=== PATIENT | female | born 1930 | race Caucasian/White ===

== ENCOUNTER 2016-12-13 10:21 | Outpatient (CLI) | payer MEDICARE | END 2016-12-13 10:22 | disposition home or self-care (01) | DX: Z12.31 Encounter for screening mammogram for malignant neoplasm of breast (principal); Z85.3 Personal history of malignant neoplasm of breast ==

== ENCOUNTER 2017-02-18 07:13 | Outpatient (CLI) | payer MEDICARE | END 2017-02-18 07:14 | disposition home or self-care (01) | DX: E78.2 Mixed hyperlipidemia (principal); E03.9 Hypothyroidism, unspecified; Z79.899 Other long term (current) drug therapy ==

== ENCOUNTER 2017-09-01 14:42 | Outpatient (CLI) | payer MEDICARE | END 2017-09-01 14:43 | disposition EMS.NT | LOC: EMS 14:42 | PROVIDERS: ATTEND Surgery | DX: R00.0 Tachycardia, unspecified (principal) ==

== ENCOUNTER 2017-12-16 10:05 | Outpatient (CLI) | payer MEDICARE ==
--- NOTE | 2017-12-17 11:49 | Mammography Report ---
DIGITAL BILATERAL SCREENING MAMMOGRAM: 12/16/2017 COMPARISON: Mammogram 12/13/2016. INDICATION: Screening. TECHNIQUE: Routine CC and MLO projections were obtained of the breasts. FINDINGS: The breast parenchyma is heterogeneously dense which may limit the sensitivity of mammography. Postoperative changes of the left breast are a stable finding. No dominant mass, architectural distortion or more concerning cluster of microcalcifications are seen in other regards IMPRESSION: 1. BIRADS CATEGORY 2-BENIGN FINDINGS. 2. RECOMMEND ANNUAL SCREENING MAMMOGRAM. STANDARD QUALIFYING STATEMENTS: 1. This examination was reviewed with the aid of Computer-Aided Detection (CAD) . 2. A negative or benign imaging report should not delay biopsy if clinically suspicious findings are present. Consider surgical consultation if warranted. More than 5 % of cancers are not identified by imaging. 3. Dense breasts may obscure an underlying neoplasm. TD: 12/17/2017 11:48 [email or web address]
== END 2017-12-16 10:06 | disposition home or self-care (01) ==
LOC: DI.S 10:05
PROVIDERS: ATTEND Internal Medicine
DX: Z12.31 Encounter for screening mammogram for malignant neoplasm of breast (principal)
CPT/HCPCS: 77067

== ENCOUNTER 2018-03-03 07:28 | Outpatient (CLI) | payer MEDICARE ==
[2018-03-03 10:32] LABS: BASOPHILS # (AUTO) 0.1 10^3/uL (0.0-0.1); BASOPHILS % (AUTO) 1.5 %; EOSINOPHILS # (AUTO) 0.2 10^3/uL (0.0-0.7); EOSINOPHILS % (AUTO) 2.5 %; LYMPHOCYTES # (AUTO) 1.6 10^3/uL (1.5-3.5); MEAN CORPUSCULAR HEMOGLOBIN 31.6 pg (27.0-31.0); MEAN CORPUSCULAR HGB CONC 33.3 g/dL (32.0-36.0); MEAN CORPUSCULAR VOLUME 94.9 fL (81.0-99.0); MEAN PLATELET VOLUME 8.6 fL (7.9-10.8); MONOCYTES # (AUTO) 0.8 10^3/uL (0.0-1.0); MONOCYTES % (AUTO) 12.2 %; NEUTROPHILS # (AUTO) 4.2 10^3/uL (1.5-6.6); NEUTROPHILS % (AUTO) 60.8 %; PLT - PLATELET COUNT 274 10^3/uL (130-450); RED BLOOD COUNT 4.11 10^6/uL (4.20-5.40); RED CELL DISTRIBUTION WIDTH 14.5 % (12.0-15.0); WHITE BLOOD COUNT 6.9 x10^3/uL (4.8-10.8)
[2018-03-03 10:55] LABS: ALBUMIN 3.3 g/dL (3.2-5.5); ALBUMIN/GLOBULIN RATIO 1.1 (1.0-2.2); ALKALINE PHOSPHATASE 62 IU/L (42-121); ALT ALANINE AMINOTRANSFERASE 21 IU/L (10-60); AST ASPARTATE AMINOTRANSFERASE 20 IU/L (10-42); BILIRUBIN,TOTAL 0.9 mg/dL (0.2-1.0); BUN - BLOOD UREA NITROGEN 11 mg/dL (6-20); CALCIUM 8.5 mg/dL (8.5-10.3); CARBON DIOXIDE - CO2 27 mmol/L (21-32); CHLORIDE 102 mmol/L (101-111); CHOLESTEROL 130 mg/dL; CREATININE 0.8 mg/dL (0.4-1.0); GFR - MDRD 68 (>89); GLUCOSE 90 mg/dL (70-100); HDL CHOLESTEROL 43 mg/dL; LDL CHOLESTEROL,CALCULATED 77 mg/dL; LDL/HDL RATIO 1.8 (<4.4); SODIUM 135 mmol/L (135-145); TOTAL PROTEIN 6.4 g/dL (6.7-8.2); VLDL CHOLESTEROL 10 mg/dL
== END 2018-03-03 07:29 | disposition home or self-care (01) ==
LOC: LAB.F 07:28
PROVIDERS: ATTEND Internal Medicine
DX: E03.9 Hypothyroidism, unspecified (principal); C50.919 Malignant neoplasm of unspecified site of unspecified female breast; E78.5 Hyperlipidemia, unspecified; Z79.899 Other long term (current) drug therapy
CPT/HCPCS: 36415; 80053; 80061; 83721; 84443; 85025

== ENCOUNTER 2018-03-14 09:41 | Outpatient (CLI) | payer MEDICARE ==
--- NOTE | 2018-03-14 16:24 | Ultrasound Report ---
EXAM: LEFT LOWER EXTREMITY VENOUS ULTRASOUND EXAM DATE: 03/14/2018 11:43 AM. CLINICAL HISTORY: LEFT LEG. COMPARISON: None. TECHNIQUE: Real-time sonographic vascular imaging was performed by the acetylene burner through the lower extremity utilizing both color-flow and Doppler spectral analysis. Multiple roofing sales representative static matilde ges were saved for review. FINDINGS: Common Femoral Vein (CFV): Normal. CFV-GSV Junction: Normal. Profunda Femoral Vein (PFV): Normal. Femoral Vein (FV) Prox: Normal. Femoral Vein (FV) Mid: Normal. Femoral Vein (FV) Dist: Normal. Popliteal Vein: Normal. Posterior Tibial Veins: Normal. Peroneal Veins: Normal. Contralateral Side CFV: Normal. Other: Incidental note is made of Maldonado's cyst measuring up to 3.4 x 0.9 x 2.8 cm. IMPRESSION: No evidence for deep venous thrombosis. Maldonado's cyst. [facility] Referring Provider Line: [phone] SITE ID: [id number]
== END 2018-03-14 09:42 | disposition home or self-care (01) ==
LOC: DI 09:41
PROVIDERS: ATTEND Internal Medicine
DX: I80.9 Phlebitis and thrombophlebitis of unspecified site (principal)

== ENCOUNTER 2018-04-15 10:12 | Outpatient (CLI) | payer OTHER, MEDICARE | END 2018-04-15 10:13 | disposition critical access hospital (66) | LOC: EMS 10:12 | PROVIDERS: ATTEND Surgery | DX: R41.82 Altered mental status, unspecified (principal); R50.9 Fever, unspecified; R00.0 Tachycardia, unspecified; V48.5XXA Car driver injured in noncollision transport accident in traffic accident, initial encounter; Y92.410 Unspecified street and highway as the place of occurrence of the external cause | CPT/HCPCS: A0425; A0429 ==

== ENCOUNTER 2018-04-15 10:50 | Inpatient (IN) | payer OTHER, MEDICARE ==
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
[2018-04-15] MEDS ORDERED: diltiaZEM INJ 5 MG/ML VIAL IVP STA ×2 (11:37→13:12)
--- NOTE | 2018-04-15 13:03 | XRAY Report ---
Procedure Date: 04/15/2018 Accession Number: [id number] / [id number] Procedure: XR - Chest 2 View X-Ray CPT Code: 55910 FULL RESULT: EXAM: CHEST RADIOGRAPHY EXAM DATE: 04/15/2018 12:43 PM. CLINICAL HISTORY: Diminished breath sounds right base. COMPARISON: CHEST 2 VIEW PA/LAT 06/14/2014. TECHNIQUE: 2 views. FINDINGS: Lungs/Pleura: No focal consolidation. Low lung volumes. No pneumothorax or pleural effusion. No pulmonary vascular congestion. Mediastinum: The cardiac silhouette is within normal limits. Cardiac valve prosthesis in place. Tortuous, atherosclerotic thoracic aorta. Other: Exaggerated thoracic kyphosis as before. Sternotomy wires again demonstrated. IMPRESSION: No radiographically apparent acute abnormality in the chest. No significant change from prior. [facility]
[2018-04-15 13:20] LABS: BILIRUBIN,URINE NEGATIVE (NEGATIVE); CLARITY,URINE CLEAR (CLEAR); GLUCOSE, URINE (UA) NEGATIVE (NEGATIVE); KETONES,URINE (UA) TRACE mg/dL (NEGATIVE); LEUKOCYTE ESTERASE, URINE NEGATIVE (NEGATIVE); NITRITE,URINE NEGATIVE (NEGATIVE); OCCULT BLOOD,URINE LARGE (NEGATIVE); PROTEIN,URINE 100 mg/dL (NEGATIVE); UROBILINOGEN,URINE 0.2 (NORMAL) E.U./dL (NORMAL)
[2018-04-15 13:29] LABS: BASOPHILS % (AUTO) 0.1 %; HGB - HEMOGLOBIN 13.1 g/dL (12.0-16.0); LYMPHOCYTES % (AUTO) 1.9 %; MEAN CORPUSCULAR HEMOGLOBIN 32.1 pg (27.0-31.0); MEAN CORPUSCULAR HGB CONC 32.9 g/dL (32.0-36.0); MEAN CORPUSCULAR VOLUME 97.5 fL (81.0-99.0); MEAN PLATELET VOLUME 8.7 fL (7.9-10.8); MONOCYTES % (AUTO) 2.8 %; NEUTROPHILS % (AUTO) 95.2 %; PLT - PLATELET COUNT 156 10^3/uL (130-450); RED BLOOD COUNT 4.08 10^6/uL (4.20-5.40); RED CELL DISTRIBUTION WIDTH 14.7 % (12.0-15.0); WHITE BLOOD COUNT 12.1 x10^3/uL (4.8-10.8)
[2018-04-15 13:30] LABS: ALBUMIN 2.9 g/dL (3.2-5.5); ALBUMIN/GLOBULIN RATIO 0.8 (1.0-2.2); BILIRUBIN,TOTAL 0.9 mg/dL (0.2-1.0); CALCIUM 8.1 mg/dL (8.5-10.3); CREATININE 1.1 mg/dL (0.4-1.0); TOTAL PROTEIN 6.7 g/dL (6.7-8.2)
[2018-04-15 13:42] LABS: BACTERIA,URINE Few /HPF (None Seen); MUCUS,URINE Few Strands; RBC,URINE 0-5 /HPF (0-5); SQUAMOUS EPITHELIAL CELL,UR MOD Squamous (<= Few)
[2018-04-15 13:49] LABS: ABNORMAL LYMPHS % (MANUAL) 0 %
[2018-04-15 13:50] LABS: BAND NEUTROPHILS % (MANUAL) 26 %; DIFFERENTIAL COMMENT MANUAL DIFFERENTIAL; LYMPHOCYTES # (MANUAL) 0.1 10^3/uL (1.5-3.5); LYMPHOCYTES % (MANUAL) 1 %; MONOCYTES # (MANUAL) 0.1 10^3/uL (0.0-1.0); NEUTROPHILS # (MANUAL) 11.9 10^3/uL (1.5-6.6); NEUTROPHILS % (MANUAL) 72 %; PLATELET ESTIMATE, MANUAL NORMAL (130-450,000) (NORMAL); PLATELET MORPHOLOGY NORMAL APPEARANCE (NORMAL); RBC MORPHOLOGY (MULTIPLE) NORMAL APPEARANCE (NORMAL)
[2018-04-15] MEDS ORDERED: IOPAMIDOL-300 100 ML VIAL ONE (14:39)
[2018-04-15] MEDS ORDERED: IOPAMIDOL-300 100 ML VIAL IVP ONE (16:07)
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
--- NOTE | 2018-04-15 16:24 | CT Report ---
Procedure Date: 04/15/2018 Accession Number: [id number] / [id number] Procedure: CT - Chest Angio (PE) CPT Code: FULL RESULT: EXAM: CT ANGIOGRAM CHEST EXAM DATE: 04/15/2018 04:05 PM. CLINICAL HISTORY: Tachycardia. COMPARISON: None. TECHNIQUE: Routine helical imaging was performed through the chest in the pulmonary arterial phase. IV Contrast: ISOVUE 300 80mL. Reconstructions: Coronal 3-D MIP reconstructions.Sagittal and coronal. In accordance with CT protocol optimization, one or more of the following dose reduction techniques were utilized for this exam: automated exposure control, adjustment of mA and/or KV based on patient size, or use of iterative reconstructive technique. FINDINGS: Pulmonary Arteries: Diagnostic quality: Adequate through the mid segmental arteries. Respiratory motion artifact obscures portions of distal vessels. No evidence for acute or chronic pulmonary emboli. Lungs/Pleura: There is reticular opacity with the lower lobes. There's bibasilar dependent airspace disease which probably represents atelectasis. No evidence of lobar infiltrate or pneumothorax. Mediastinum: There is cardiac. Patient has undergone aortic valve replacement. There are no enlarged axillary, supraclavicular, mediastinal, or hilar lymph nodes. Thoracic Aorta: There is no evidence of aortic dissection or aneurysm. Upper Abdomen: Unremarkable. Other: None. IMPRESSION: 1. No evidence of acute pulmonary embolism through the mid segmental branch level. 2. No evidence of lobar infiltrate or pneumothorax. 3. There is cardiomegaly. 4. No evidence of aortic dissection. [facility]
[2018-04-15] MEDS ORDERED: ONDANSETRON 4 MG/2 ML VIAL IVP PRN (16:28)
[2018-04-15] MEDS ORDERED: PROMETHAZINE 25 MG/1 ML VIAL IM PRN (16:28)
[2018-04-15] MEDS ORDERED: MORPHINE 2 MG/ML SYRINGE IVP PRN (16:28)
[2018-04-15] MEDS ORDERED: ZOLPIDEM 5 MG TABLET PO PRN (16:28)
[2018-04-15] MEDS ORDERED: oxyCODONE 5 MG TABLET PO PRN ×2 (16:28)
[2018-04-15] MEDS ORDERED: SODIUM CHLORIDE FLUSH 0.9% 10 ML SYRINGE IVP PRN (16:28)
[2018-04-15] MEDS ORDERED: PROCHLORPERAZINE 10 MG/2 ML VIAL IVP PRN (16:28)
[2018-04-15 17:10] LABS: HB2 TOTAL 13.6 g/dL; HEMOGLOBIN A1C 0.65 g/dL; HEMOGLOBIN A1C % 6.5 % (4.6-6.2)
[2018-04-15] MEDS ORDERED: SODIUM CHLORIDE 0.9% 1,000 ML IV ONE (17:14)
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
[2018-04-15] MEDS: SODIUM CHLORIDE FLUSH 0.9% 10 ML SYRINGE IVP SCH (18:11)
[2018-04-15] MEDS ORDERED: METOPROLOL 5 MG/5 ML VIAL IVP STA (18:51)
[2018-04-15] MEDS ORDERED: METOPROLOL SUCCINATE 50 MG TABLET PO SCH (18:52)
[2018-04-15] MEDS: SODIUM CHLORIDE 0.9% 1,000 ML IV SCH (19:18)
[2018-04-15] MEDS: VANCOMYCIN INJ 1 GM in SODIUM CHLORIDE 0.9% 250 ML IV SCH (19:18)
[2018-04-15] MEDS ORDERED: PIPERACILLIN/TAZOBACTAM 3.375 GM in SODIUM CHLORIDE 0.9% MINIBAG 100 ML IV SCH ×2 (20:00→21:00)
[2018-04-15] MEDS ORDERED: SODIUM CHLORIDE 0.9% 1,000 ML IV SCH (20:50)
[2018-04-15] MEDS: ATORVASTATIN 40 MG TABLET PO SCH (21:25)
[2018-04-15] MEDS ORDERED: SODIUM CHLORIDE 0.9% 500 ML IV SCH (22:45)
[2018-04-15] MEDS ORDERED: METOPROLOL 5 MG/5 ML VIAL IVP PRN (22:45)
[2018-04-15] MEDS: ACETAMINOPHEN 325 MG TABLET PO PRN (23:57)
[2018-04-16] MEDS: SODIUM CHLORIDE FLUSH 0.9% 10 ML SYRINGE IVP SCH ×6 (02:31→20:00)
[2018-04-16 03:22] LABS: BASOPHILS % (AUTO) 0.3 %; EOSINOPHILS % (AUTO) 0.1 %; HGB - HEMOGLOBIN 11.4 g/dL (12.0-16.0); LYMPHOCYTES # (AUTO) 0.6 10^3/uL (1.5-3.5); LYMPHOCYTES % (AUTO) 4.6 %; MEAN CORPUSCULAR HEMOGLOBIN 32.2 pg (27.0-31.0); MEAN CORPUSCULAR HGB CONC 33.4 g/dL (32.0-36.0); MEAN CORPUSCULAR VOLUME 96.3 fL (81.0-99.0); MEAN PLATELET VOLUME 8.7 fL (7.9-10.8); MONOCYTES # (AUTO) 0.7 10^3/uL (0.0-1.0); MONOCYTES % (AUTO) 4.8 %; NEUTROPHILS # (AUTO) 12.4 10^3/uL (1.5-6.6); NEUTROPHILS % (AUTO) 90.2 %; PLT - PLATELET COUNT 125 10^3/uL (130-450); RED BLOOD COUNT 3.56 10^6/uL (4.20-5.40); WHITE BLOOD COUNT 13.8 x10^3/uL (4.8-10.8)
[2018-04-16 03:35] LABS: ALBUMIN 2.1 g/dL (3.2-5.5); ALBUMIN/GLOBULIN RATIO 0.7 (1.0-2.2); ALKALINE PHOSPHATASE 61 IU/L (42-121); ALT ALANINE AMINOTRANSFERASE 51 IU/L (10-60); AST ASPARTATE AMINOTRANSFERASE 94 IU/L (10-42); BUN - BLOOD UREA NITROGEN 24 mg/dL (6-20); CALCIUM 6.8 mg/dL (8.5-10.3); CARBON DIOXIDE - CO2 17 mmol/L (21-32); CHLORIDE 105 mmol/L (101-111); CREATININE 1.1 mg/dL (0.4-1.0); GFR - MDRD 47 (>89); GLUCOSE 138 mg/dL (70-100); MAGNESIUM 1.7 mg/dL (1.7-2.8); PHOSPHORUS 2.8 mg/dL (2.5-4.6); SODIUM 132 mmol/L (135-145); TOTAL PROTEIN 5.2 g/dL (6.7-8.2)
[2018-04-16 03:53] LABS: VBG PH 7.427 (7.31-7.41)
[2018-04-16] MEDS ORDERED: SODIUM CHLORIDE 0.9% 1,000 ML IV ONE ×4 (05:30→13:17)
[2018-04-16] MEDS: SODIUM CHLORIDE 0.9% 1,000 ML IV SCH ×2 (05:59→14:35)
[2018-04-16] MEDS ORDERED: FAMOTIDINE 20 MG TABLET PO SCH (09:00)
[2018-04-16] MEDS ORDERED: METOPROLOL SUCCINATE 50 MG TABLET PO SCH (09:00)
[2018-04-16] MEDS: LEVOTHYROXINE 25 MCG TABLET PO SCH (09:38)
[2018-04-16] MEDS: POTASSIUM CHLORIDE 10 MEQ CAPSULE PO SCH (09:38)
[2018-04-16] MEDS: ASPIRIN EC 81 MG TABLET PO SCH (09:38)
[2018-04-16] MEDS: PANTOPRAZOLE 40 MG VIAL IVP SCH (09:44)
[2018-04-16] MEDS: PIPERACILLIN/TAZOBACTAM 3.375 GM in SODIUM CHLORIDE 0.9% MINIBAG 100 ML IV SCH ×2 (09:47→15:43)
[2018-04-16] MEDS: POLYETHYLENE GLYCOL 3350 17 GM PACKET PO SCH (10:01)
[2018-04-16] MEDS: ENOXAPARIN 40 MG/0.4 ML SYRINGE SUBQ SCH (10:07)
--- NOTE | 2018-04-16 12:50 | XRAY Report ---
Procedure Date: 04/16/2018 Accession Number: [id number] / [id number] Procedure: XR - Chest for Line Placement CPT Code: FULL RESULT: EXAM: Chest for Line Placement DATE: 04/16/2018 9:58 AM CLINICAL HISTORY: new PICC COMPARISON: Limited comparison is made to the CT of the chest dated 04/15/2018. TECHNIQUE: Single view of the chest. FINDINGS: Lines: Interval placement of a right-sided peripherally inserted central catheter with the tip located in the region of the superior cavoatrial junction. Lungs/Pleura: No focal opacities evident. No pneumothorax or pleural effusion. Mediastinum: Within exam limitations, cardiomediastinal contour is normal. Stable postoperative changes. Other: None. IMPRESSION: Appropriately positioned right PICC. No pneumothorax. RADIA
[2018-04-16] MEDS ORDERED: AMIODARONE 150 MG/100 ML 100 ML IV ONE (13:40)
[2018-04-16] MEDS ORDERED: AMIODARONE 360 MG/200 ML 200 ML IV ONE (13:50)
--- NOTE | 2018-04-16 16:08 | PROVIDER PROGRESS NOTE ---
Assessment/Plan - Problem List (1) Septic shock Assessment/Plan: Patient presented with fever, tachycardia, leukocytosis and bandemia. She had an elevated lactic acid of 4.0. The patient did have a mild elevation in her creatinine up to 1.1 from 0.7 and mild elevation in her troponin up to 0.43. The patient appeared to have severe sepsis with endorgan damage. The patient also had metabolic encephalopathy as she was confused. The patient underwent extensive workup for source of infection and was found to have a left lower extremity cellulitis as the likely source of her sepsis. Overnight patient had positive blood cultures with group G strep likely source being the left leg cellulitis This am patient was hypotensive despite several IV fluid boluses patient remained hypotensive with SBP in 70 Worsening leukocytosis this am, fever of 38.8 overnight Transferred to ICU and placed on levophed Lactic acid initially increased to 4.2 then improved to normal Plan: Broad-spectrum IV antibiotics with IV vancomycin and Zosyn day 2 Levophed drip titrate for MAP >65 COntinue IV fluid boluses and maintenance fluid (2) Bacteremia Conclusion/Plan: Group G Strep Likely source is left lower extremity cellulitis Echo negative for endocarditis Plan: Repeat blood cultures COntinue IV vanco and zosyn day 2 Await susceptibilities (3) Cellulitis of left leg Conclusion/Plan: Patient presented with left lower extremity pain on exam she appears to have a swollen, tender, warm and red left lower extremity that appears to be infected. The patient likely has cellulitis as the source of her severe sepsis. Given that the patient does have septic shock we will use broad-spectrum IV antibiotics. Patient has bacteremia with group g strep and likely source is cellulitis Plan: Continue IV vancomycin and Zosyn day 2 Repeat blood cx De-escalate abx depending on susceptibilities (4) Atrial fibrillation with RVR Conclusion/Plan: The patient presented with tachycardia which initially appeared to be sinus tachycardia with a heart rate of 142. On arrival to the medical poe the patient continued to be tachycardic with heart rate up to the 150s. The patient was given 2 doses of diltiazem in the emergency department which did seem to slow her heart rate down. The patient's EKG appears to show a right bundle branch block but it is difficult to assess if the patient has sinus rhythm or atrial fibrillation on her monitor it does appear she has atrial fibrillation. The patient does not herself know about a history of atrial fibrillation but looking back at a EMS note from 08/2017 the patient did have tachycardia at that time with a heart rate in the 180s but declined to come to the hospital. It appears the patient likely does have A. fib with RVR and will be treated as such. Patient continues to have HR of 150s this am and secondary to septic shock metoprolol stopped this am Echocardiogram shows reduced EF of 40% Telemetry monitoring shows irregular wide complex tachycardia Plan: Start amiodarone drip Monitor HR Restart metoprolol once tolerable Hold off anticoagulation given patients age (5) Acute kidney injury Conclusion/Plan: The patient's baseline creatinine is 0.7 and on presentation it is elevated to 1.1 with an elevated BUN of 23. The patient does appear to be dry on examination and does have severe sepsis with likely acute kidney injury due to prerenal azotemia. Continue IVFs We will avoid nephrotoxic agents We will monitor patient's creatinine Continues to be elevated at 1.1 and decreased urine output (6) Metabolic encephalopathy Conclusion/Plan: On presentation to the emergency department the patient was quite confused and although she does appear to have some underlying dementia it is difficult to know how much of her confusion is acute but given that she has severe sepsis it is likely that there is some component of metabolic encephalopathy. We will treat the patient's underlying infection and give her IV fluids and hope that she does have improvement in her mentation. Patient lethargic and not at baseline according to patients son (7) Hyperglycemia Conclusion/Plan: Patient is hyperglycemic on presentation with a glucose of 155 which is likely a stress response secondary to her ongoing infection. The patient's hemoglobin A1c was 6.5 which is right on the borderline. We will not start any insulin at this time however the patient's blood glucose does become elevated on her daily labs will consider starting her on a sliding scale insulin. The patient does not have any history of diabetes. BG mildly elevated this am (8) Elevated troponin Conclusion/Plan: The patient has a mildly elevated troponin on presentation of 0.43 her repeat troponin was 0.38 than 0.43. Likely this elevation in her troponin is due to end organ damage from severe sepsis. Also there may be some contribution from her having tachycardia for what may have been a prolonged period of time prior to arriving to the emergency department. Patient does not have any ST elevations on her EKG and it does not appear that she has acute ischemia. Trop stable Plan: Telemetry monitoring Echocardiogram Treat A. fib with RVR to get rate control (9) Hypertension Conclusion/Plan: Septic shock Hold antihypertensive meds Qualifiers: Hypertension type: essential hypertension Qualified Code(s): I10 - Essential (primary) hypertension (10) Hypothyroidism Conclusion/Plan: Patient is a history of hypothyroidism and takes Synthroid at home. We will continue her on her home dose of Synthroid. TSH is normal Qualifiers: Hypothyroidism type: unspecified Qualified Code(s): E03.9 - Hypothyroidism , unspecified (11) Hyperlipidemia Conclusion/Plan: Patient has a history of hyperlipidemia and takes atorvastatin at home. We will continue the patient's home dose of atorvastatin. Qualifiers: Hyperlipidemia type: unspecified Qualified Code(s): E78.5 - Hyperlipidemia , unspecified - Current Meds Current Meds: Current Medications Generic Name Dose Route Start Last Admin Trade Name Freq PRN Reason Stop Dose Admin Acetaminophen 650 mg 04/15/18 16:28 04/15/18 23:57 Tylenol PO 650 mg Q4HR PRN Administration Pain 1 to 4 Aspirin 81 mg 04/16/18 09:00 04/16/18 09:38 Ecotrin PO 81 mg DAILY REKHA Administration Atorvastatin Calcium 40 mg 04/15/18 21:00 04/15/18 21:25 Lipitor PO 40 mg QPM REKHA Administration Enoxaparin Sodium 40 mg 04/16/18 09:00 04/16/18 10:07 Lovenox SUBQ 40 mg DAILY REKHA Administration Vancomycin HCl 1 gm/ Sodium 250 mls @ 130 mls/hr 04/15/18 18:00 04/15/18 21: 35 Chloride IV Infused Q24H REKHA Infusion Piperacillin Sod/Tazobactam 100 mls @ 200 mls/hr 04/16/18 08:00 04/16/18 15: 43 Sod 3.375 gm/ Sodium Chloride IV 200 mls/hr Q8H REKHA Administration Norepinephrine Bitartrate 8 mg 250 mls @ 15 mls/hr 04/16/18 08:00 04/16/18 12 :00 / Dextrose IV 0 mcg/min .[id number] REKHA 0 mls/hr Protocol Titration 8 MCG/MIN Sodium Chloride 1,000 mls @ 120 mls/hr 04/16/18 14:00 04/16/18 15:43 Normal Saline 0.9% IV 0 mls/hr .Q8H20M REKHA Infusion Amiodarone HCl/Dextrose 200 mls @ 33.333 mls/hr 04/16/18 13:50 04/16/18 15:00 Nexterone 360 Mg/200 Ml IV 04/16/18 19:49 33.333 mls/hr ONCE ONE Infusion Levothyroxine Sodium 50 mcg 04/16/18 07:00 04/16/18 09:38 Synthroid PO 50 mcg QDAC REKHA Administration Pantoprazole Sodium 40 mg 04/16/18 08:00 04/16/18 09:44 Protonix IVP 40 mg QDAC REKHA Administration Polyethylene Glycol 17 gm 04/16/18 09:00 04/16/18 10:01 Miralax PO Not Given DAILY REKHA Potassium Chloride 10 meq 04/16/18 09:00 04/16/18 09:38 Micro-K PO 10 meq DAILY REKHA Administration Sodium Chloride 10 ml 04/15/18 17:00 04/16/18 10:02 Normal Saline Flush 0.9% IVP 10 ml 0100,0900,1700 REKHA Administration Sodium Chloride 10 ml 04/16/18 09:00 04/16/18 09:44 Normal Saline Flush 0.9% IVP 10 ml 0100,0900,1700 REKHA Administration - Lab Result Fish Bone Diagrams: 04/16/18 03:10 04/16/18 03:10 - EKG Results EKG Interpreted Independently: Yes - Diagnostic Imaging Results Diagnostic Imaging Results: Final report reviewed - Additional Planning Condition/Complexity: Critical My Orders: My Active Orders 04/16/18 07:46 Daily Weight [RC] 0600 IO [RC] Q1HR Initiate ICU Electrolyte Prot. [RC] .protocol Vital Signs [RC] Q1HR Sodium Chloride Flush 0.9% [Normal Saline Flush 0.9%] 10 ml IVP PRN PRN Code Status [OTHERS] Routine 04/16/18 08:00 Echo Transthoracic Complete [ECHO] Routine Pantoprazole [Protonix] 40 mg IVP QDAC 04/16/18 08:16 PICC Line Care [RC] Q4H 04/16/18 09:00 Sodium Chloride Flush 0.9% [Normal Saline Flush 0.9%] 10 ml IVP 0100,0900, 1700 07/12/18 13:50 Amiodarone 360 mg/200 ml [Nexterone 360 mg/200 ml] 200 ml IV ONCE 04/16/18 14:00 Sodium Chloride 0.9% [Normal Saline 0.9%] 1,000 ml IV 120 mls/hr 04/16/18 14:58 Blood Culture [CULTURE, BLOOD #2] [RM] Routine 04/16/18 15:35 Blood Culture [CULTURE, BLOOD #1] [] Routine 04/16/18 19:50 Amiodarone 360 mg/200 ml [Nexterone 360 mg/200 ml] 200 ml IV 0.5 mg/min 04/17/18 05:00 BNP - B-NATRIURETIC PEPTIDE [IAI] DAILYLAB 04/18/18 05:00 BNP - B-NATRIURETIC PEPTIDE [IAI] DAILYLAB 04/19/18 05:00 BNP - B-NATRIURETIC PEPTIDE [IAI] DAILYLAB 04/20/18 05:00 BNP - B-NATRIURETIC PEPTIDE [IAI] DAILYLAB Plan Discussed with:: Patient, Family Time Spent: Greater than 60 minutes Subjective - Subjective Patient Reports: Fever, Pain (Left lower extremity), Other (Patient lethargic but arousable, still confused. Denies any chest pain or shortness of breath.) Nursing Reports: Confused Objective Vital Signs: Vital Signs - 24 hr 04/15/18 04/15/18 04/15/18 17:00 17:31 17:59 Temperature 37.8 C H 37.2 C Heart Rate 130 H 121 H Heart Rate [ 129 H Apical] Heart Rate [ Brachial] Heart Rate [ Monitoring electrodes] Respiratory 24 18 20 Rate Blood Pressure 139/79 H 127/77 Blood Pressure [Left Brachial artery] Blood Pressure 145/71 H [Right Brachial artery] O2 Saturation 96 100 93 04/15/18 04/15/18 04/15/18 19:10 19:15 19:20 Temperature Heart Rate Heart Rate [ 147 H 141 H Apical] Heart Rate [ Brachial] Heart Rate [ Monitoring electrodes] Respiratory Rate Blood Pressure 145/77 H Blood Pressure [Left Brachial artery] Blood Pressure 145/77 H 115/60 [Right Brachial artery] O2 Saturation 04/15/18 04/15/18 04/15/18 19:25 19:30 20:15 Temperature Heart Rate Heart Rate [ 141 H 135 H 120 H Apical] Heart Rate [ Brachial] Heart Rate [ Monitoring electrodes] Respiratory Rate Blood Pressure Blood Pressure [Left Brachial artery] Blood Pressure 111/56 L 118/93 H 116/72 [Right Brachial artery] O2 Saturation 04/16/18 04/16/18 04/16/18 00:00 00:56 06:18 Temperature 38.8 C H 37.2 C 36.8 C Heart Rate Heart Rate [ Apical] Heart Rate [ 124 H 133 H Brachial] Heart Rate [ Monitoring electrodes] Respiratory 20 18 Rate Blood Pressure Blood Pressure [Left Brachial artery] Blood Pressure 113/57 L 97/54 L [Right Brachial artery] O2 Saturation 94 92 04/16/18 04/16/18 04/16/18 06:47 07:30 07:45 Temperature 36.6 C Heart Rate Heart Rate [ Apical] Heart Rate [ 141 H Brachial] Heart Rate [ 135 H 136 H Monitoring electrodes] Respiratory 17 23 27 H Rate Blood Pressure Blood Pressure [Left Brachial artery] Blood Pressure 93/67 108/75 79/69 L [Right Brachial artery] O2 Saturation 93 04/16/18 04/16/18 04/16/18 08:00 10:00 11:00 Temperature Heart Rate Heart Rate [ Apical] Heart Rate [ Brachial] Heart Rate [ 138 H 141 H 149 H Monitoring electrodes] Respiratory 17 23 22 Rate Blood Pressure Blood Pressure 132/91 H 139/99 H [Left Brachial artery] Blood Pressure 89/58 L [Right Brachial artery] O2 Saturation 04/16/18 04/16/18 04/16/18 12:00 13:00 14:00 Temperature Heart Rate Heart Rate [ Apical] Heart Rate [ Brachial] Heart Rate [ 136 H 145 H 128 H Monitoring electrodes] Respiratory 24 25 H 28 H Rate Blood Pressure Blood Pressure 133/93 H 116/71 104/70 [Left Brachial artery] Blood Pressure [Right Brachial artery] O2 Saturation 04/16/18 15:00 Temperature Heart Rate Heart Rate [ Apical] Heart Rate [ Brachial] Heart Rate [ 130 H Monitoring electrodes] Respiratory 33 H Rate Blood Pressure Blood Pressure 115/90 H [Left Brachial artery] Blood Pressure [Right Brachial artery] O2 Saturation Oxygen O2 Source Room air I&O (Last 24 Hrs): Intake and Output Totals x24h 04/14/18 04/15/18 04/16/18 23:59 23:59 23:59 Intake Total 2852.083 6392.604 Output Total 1636 Balance 2852.083 8688.604 General: Moderate distress (septic), Other (Lethargic) HEENT: Atraumatic, PERRLA, EOMI, Other (dry mucus membranes) Neck: Supple, No JVD, No thyromegaly, +2 carotid pulse wo bruit, No LAD Lymphatic: no adenopathy Neuro: Non Focal, CN 2-12 Grossly Intact, Other (lethargic) Cardiovascular: No murmurs, Other (Irregular, tachycardic) Respiratory: Chest non-tender, Breath sounds nml, Other (Tachypnic) Abdomen: Normal bowel sounds, Soft, No tenderness, No hepatospenomegaly Extremities: No clubbing, No cyanosis, Normal pulses, Other (Left lower extremity swollen, red, warm and tender. no improvement) Comments/Notes: LLE red, warm and tender with obvious cellulitis - Results Results: Laboratory Results WBC 13.8 x10^3/uL (4.8-10.8) H 04/16/18 03:10 RBC 3.56 10^6/uL (4.20-5.40) L 04/16/18 03:10 Hgb 11.4 g/dL (12.0-16.0) L 04/16/18 03:10 Hct 34.2 % (37.0-47.0) L 04/16/18 03:10 MCV 96.3 fL (81.0-99.0) 04/16/18 03:10 MCH 32.2 pg (27.0-31.0) H 04/16/18 03:10 MCHC 33.4 g/dL (32.0-36.0) 04/16/18 03:10 RDW 15.0 % (12.0-15.0) 04/16/18 03:10 Plt Count 125 10^3/uL (130-450) L 04/16/18 03:10 MPV 8.7 fL (7.9-10.8) 04/16/18 03:10 Neut # (Auto) 12.4 10^3/uL (1.5-6.6) H 04/16/18 03:10 Lymph # (Auto) 0.6 10^3/uL (1.5-3.5) L 04/16/18 03:10 [place] # (Auto) 0.7 10^3/uL (0.0-1.0) 04/16/18 03:10 Eos # (Auto) 0.0 10^3/uL (0.0-0.7) 04/16/18 03:10 Baso # (Auto) 0.0 10^3/uL (0.0-0.1) 04/16/18 03:10 Absolute Nucleated RBC 0.00 x10^3/uL 04/16/18 03:10 Total Counted 100 04/15/18 13:09 Band Neuts % (Manual) 26 % (0-10) H 04/15/18 13:09 Abnorm Lymph % (Manual) 0 % 04/15/18 13:09 Nucleated RBC % 0.0 /100WBC 04/16/18 03:10 Neutrophils # (Manual) 11.9 10^3/uL (1.5-6.6) H 04/15/18 13:09 Lymphocytes # (Manual) 0.1 10^3/uL (1.5-3.5) L 04/15/18 13:09 Monocytes # (Manual) 0.1 10^3/uL (0.0-1.0) 04/15/18 13:09 Eosinophils # (Manual) 0.0 10^3/uL (0-0.7) 04/15/18 13:09 Basophils # (Manual) 0.0 10^3/uL (0-0.1) 04/15/18 13:09 Differential Comment MANUAL DIFFERENTIAL 04/15/18 13:09 Manual Slide Review Indicated 04/15/18 13:09 WBC Morphology 2+ VACUOLA (NORMAL) 04/15/18 13:09 Platelet Estimate NORMAL (130-450,000) (NORMAL) 04/15/18 13:09 Platelet Morphology NORMAL APPEARANCE (NORMAL) 04/15/18 13:09 RBC Morph Micro Appear NORMAL APPEARANCE (NORMAL) 04/15/18 13:09 VBG pH 7.427 (7.31-7.41) H 04/16/18 03:10 Ionized Calcium 0.97 mmol/L (1.15-1.33) L 04/16/18 03:10 Sodium 132 mmol/L (135-145) L 04/16/18 03:10 Potassium 3.5 mmol/L (3.5-5.0) 04/16/18 03:10 Chloride 105 mmol/L (101-111) 04/16/18 03:10 Carbon Dioxide 17 mmol/L (21-32) L 04/16/18 03:10 Anion Gap 10.0 (6-13) 04/16/18 03:10 BUN 24 mg/dL (6-20) H 04/16/18 03:10 Creatinine 1.1 mg/dL (0.4-1.0) H 04/16/18 03:10 Estimated GFR (MDRD) 47 (>89) L 04/16/18 03:10 Glucose 138 mg/dL (70-100) H 04/16/18 03:10 Glycated Hemoglobin 6.5 % (4.6-6.2) H 04/15/18 16:49 Estim Average Glucose 140 (70-100) H 04/15/18 16:49 Lactic Acid 1.7 mmol/L (0.5-2.2) 04/16/18 06:33 Calcium 6.8 mg/dL (8.5-10.3) L 04/16/18 03:10 Ionized Calcium YES 04/16/18 03:10 Phosphorus 2.8 mg/dL (2.5-4.6) 04/16/18 03:10 Magnesium 1.7 mg/dL (1.7-2.8) 04/16/18 03:10 Total Bilirubin 1.0 mg/dL (0.2-1.0) 04/16/18 03:10 AST 94 IU/L (10-42) H 04/16/18 03:10 ALT 51 IU/L (10-60) 04/16/18 03:10 Alkaline Phosphatase 61 IU/L (42-121) 04/16/18 03:10 Troponin I 0.46 ng/mL (<0.49) 04/16/18 03:10 B-Natriuretic Peptide 1164 pg/mL (5-100) H 04/16/18 03:10 Total Protein 5.2 g/dL (6.7-8.2) L 04/16/18 03:10 Albumin 2.1 g/dL (3.2-5.5) L 04/16/18 03:10 Globulin 3.1 g/dL (2.1-4.2) 04/16/18 03:10 Albumin/Globulin Ratio 0.7 (1.0-2.2) L 04/16/18 03:10 Lipase 22 U/L (22-51) 04/15/18 13:09 TSH 2.90 uIU/mL (0.34-5.60) 04/16/18 03:10 Urine Color YELLOW 04/15/18 13:04 Urine Clarity CLEAR (CLEAR) 04/15/18 13:04 Urine pH 6.0 PH (5.0-7.5) 04/15/18 13:04 Ur Specific [place] 1.025 (1.002-1.030) 04/15/18 13:04 Urine Protein 100 mg/dL (NEGATIVE) H 04/15/18 13:04 Urine Glucose (UA) NEGATIVE mg/dL (NEGATIVE) 04/15/18 13:04 Urine Ketones TRACE mg/dL (NEGATIVE) 04/15/18 13:04 Urine Occult Blood LARGE (NEGATIVE) H 04/15/18 13:04 Urine Nitrite NEGATIVE (NEGATIVE) 04/15/18 13:04 Urine Bilirubin NEGATIVE (NEGATIVE) 04/15/18 13:04 Urine Urobilinogen 0.2 (NORMAL) E.U./dL (NORMAL) 04/15/18 13:04 Ur Leukocyte Esterase NEGATIVE (NEGATIVE) 04/15/18 13:04 Urine RBC 0-5 /HPF (0-5) 04/15/18 13:04 Urine WBC 0-3 /HPF (0-5) 04/15/18 13:04 Ur Squamous Epith Cells MOD Squamous (<= Few) H 04/15/18 13:04 Urine Bacteria Few /HPF (None Seen) 04/15/18 13:04 Urine Mucus Few Strands 04/15/18 13:04 Ur Microscopic Review INDICATED 04/15/18 13:04 Urine Culture Comments NOT INDICATED 04/15/18 13:04 ABX Reporting Has patient been on IV antibiotics over the past 48 hours?: No Current Medications - Current Medications Current Medications: Active Medications Generic Name Dose Route Start Last Admin Trade Name Freq PRN Reason Stop Dose Admin Acetaminophen 650 mg 04/15/18 16:28 04/15/18 23:57 Tylenol PO 650 mg Q4HR PRN Administration Pain 1 to 4 Aspirin 81 mg 04/16/18 09:00 04/16/18 09:38 Ecotrin PO 81 mg DAILY REKHA Administration Atorvastatin Calcium 40 mg 04/15/18 21:00 04/15/18 21:25 Lipitor PO 40 mg QPM REKHA Administration Clotrimazole 1 applic 04/16/18 09:00 Lotrimin 1% Cream TOP DAILY REKHA Enoxaparin Sodium 40 mg 04/16/18 09:00 04/16/18 10:07 Lovenox SUBQ 40 mg DAILY REKHA Administration Vancomycin HCl 1 gm/ Sodium 250 mls @ 130 mls/hr 04/15/18 18:00 04/15/18 21: 35 Chloride IV Infused Q24H REKHA Infusion Piperacillin Sod/Tazobactam 100 mls @ 200 mls/hr 04/16/18 08:00 04/16/18 15: 43 Sod 3.375 gm/ Sodium Chloride IV 200 mls/hr Q8H REKHA Administration Norepinephrine Bitartrate 8 mg 250 mls @ 15 mls/hr 04/16/18 08:00 04/16/18 12 :00 / Dextrose IV 0 mcg/min .[id number] REKHA 0 mls/hr Protocol Titration 8 MCG/MIN Sodium Chloride 1,000 mls @ 120 mls/hr 04/16/18 14:00 04/16/18 15:43 Normal Saline 0.9% IV 0 mls/hr .Q8H20M REKHA Infusion Amiodarone HCl/Dextrose 200 mls @ 33.333 mls/hr 04/16/18 13:50 04/16/18 16:00 Nexterone 360 Mg/200 Ml IV 04/16/18 19:49 33.333 mls/hr ONCE ONE Infusion Amiodarone HCl/Dextrose 200 mls @ 16.667 mls/hr 04/16/18 19:50 Nexterone 360 Mg/200 Ml IV 04/17/18 19:49 .Q12H REKHA 0.5 MG/MIN Levothyroxine Sodium 50 mcg 04/16/18 07:00 04/16/18 09:38 Synthroid PO 50 mcg QDAC REKHA Administration Morphine Sulfate 2 mg 04/15/18 16:28 Morphine IVP Q2H PRN Pain 8 to 10 Ondansetron HCl 4 mg 04/15/18 16:28 Zofran Inj IVP Q6HR PRN Nausea / Vomiting Oxycodone HCl 5 mg 04/15/18 16:28 Roxicodone PO Q4HR PRN Pain 5 to 7 Oxycodone HCl 10 mg 04/15/18 16:28 Roxicodone PO Q4HR PRN Pain 8 to 10 Pantoprazole Sodium 40 mg 04/16/18 08:00 04/16/18 09:44 Protonix IVP 40 mg QDAC REKHA Administration Polyethylene Glycol 17 gm 04/16/18 09:00 04/16/18 10:01 Miralax PO Not Given DAILY REKHA Potassium Chloride 10 meq 04/16/18 09:00 04/16/18 09:38 Micro-K PO 10 meq DAILY REKHA Administration Prochlorperazine Edisylate 10 mg 04/15/18 16:28 Compazine Inj IVP Q6HR PRN Nausea / Vomiting Promethazine HCl 25 mg 04/15/18 16:28 Phenergan Inj IM Q6HR PRN Nausea / Vomiting Sodium Chloride 10 ml 04/15/18 17:00 04/16/18 10:02 Normal Saline Flush 0.9% IVP 10 ml 0100,0900,1700 REKHA Administration Sodium Chloride 10 ml 04/16/18 09:00 04/16/18 09:44 Normal Saline Flush 0.9% IVP 10 ml 0100,0900,1700 REKHA Administration Sodium Chloride 10 ml 04/16/18 07:46 Normal Saline Flush 0.9% IVP PRN PRN NEEDED PER PROVIDER ORDERS Zolpidem Tartrate 5 mg 04/15/18 16:28 Ambien PO QPM PRN Insomnia Aspirin [Aspirin EC] 81 mg PO DAILY 04/15/18 Atorvastatin Calcium 40 mg PO QPM 04/15/18 Clotrimazole [Clotrimazole AF] 1 applic TOP DAILY 04/15/18 Levothyroxine Sodium 50 mcg PO QDAC 04/15/18 Metoprolol Succinate 50 mg PO DAILY 04/15/18 Potassium Chloride 10 meq PO DAILY 04/15/18
[2018-04-16] MEDS: VANCOMYCIN INJ 1 GM in SODIUM CHLORIDE 0.9% 250 ML IV SCH (17:40)
[2018-04-16] MEDS: ACETAMINOPHEN 325 MG TABLET PO PRN (19:35)
[2018-04-16] MEDS: AMIODARONE 360 MG/200 ML 200 ML IV SCH (20:03)
[2018-04-16] MEDS: CLOTRIMAZOLE 1% CREAM 15 GM TUBE TOP SCH (20:07)
[2018-04-16] MEDS: ATORVASTATIN 40 MG TABLET PO SCH (21:17)
[2018-04-16] MEDS ORDERED: FUROSEMIDE 20 MG/2 ML VIAL IVP SCH (22:00)
[2018-04-17] MEDS: METOPROLOL 5 MG/5 ML VIAL IVP PRN ×2 (00:09→06:28)
[2018-04-17] MEDS: PIPERACILLIN/TAZOBACTAM 3.375 GM in SODIUM CHLORIDE 0.9% MINIBAG 100 ML IV SCH (00:10)
[2018-04-17] MEDS: SODIUM CHLORIDE 0.9% 1,000 ML IV SCH ×3 (01:48→19:00)
[2018-04-17] MEDS: SODIUM CHLORIDE FLUSH 0.9% 10 ML SYRINGE IVP SCH ×4 (03:05→17:05)
[2018-04-17] MEDS: SODIUM CHLORIDE FLUSH 0.9% 10 ML SYRINGE IVP PRN ×2 (03:05→06:28)
[2018-04-17 03:28] LABS: BASOPHILS % (AUTO) 0.4 %; EOSINOPHILS % (AUTO) 2.9 %; HGB - HEMOGLOBIN 11.5 g/dL (12.0-16.0); LYMPHOCYTES % (AUTO) 4.2 %; MEAN CORPUSCULAR HEMOGLOBIN 32.4 pg (27.0-31.0); MEAN CORPUSCULAR HGB CONC 34.5 g/dL (32.0-36.0); MEAN PLATELET VOLUME 9.2 fL (7.9-10.8); MONOCYTES % (AUTO) 5.3 %; NEUTROPHILS % (AUTO) 87.2 %; PLT - PLATELET COUNT 117 10^3/uL (130-450); RED BLOOD COUNT 3.55 10^6/uL (4.20-5.40); RED CELL DISTRIBUTION WIDTH 15.2 % (12.0-15.0); WHITE BLOOD COUNT 14.5 x10^3/uL (4.8-10.8)
[2018-04-17 03:30] LABS: ABNORMAL LYMPHS % (MANUAL) 0 %
[2018-04-17 03:50] LABS: BAND NEUTROPHILS % (MANUAL) 5 %; DIFFERENTIAL COMMENT MANUAL DIFFERENTIAL; EOSINOPHILS # (MANUAL) 0.1 10^3/uL (0-0.7); LYMPHOCYTES % (MANUAL) 7 %; MONOCYTES # (MANUAL) 0.7 10^3/uL (0.0-1.0); NEUTROPHILS # (MANUAL) 12.6 10^3/uL (1.5-6.6); NEUTROPHILS % (MANUAL) 82 %; PLATELET ESTIMATE, MANUAL DECREASED (<130,000) (NORMAL); RBC MORPHOLOGY (MULTIPLE) NORMAL APPEARANCE (NORMAL)
[2018-04-17 04:00] LABS: ALBUMIN 2.1 g/dL (3.2-5.5); ALBUMIN/GLOBULIN RATIO 0.8 (1.0-2.2); ALKALINE PHOSPHATASE 57 IU/L (42-121); ALT ALANINE AMINOTRANSFERASE 53 IU/L (10-60); AST ASPARTATE AMINOTRANSFERASE 78 IU/L (10-42); BILIRUBIN,TOTAL 0.8 mg/dL (0.2-1.0); BUN - BLOOD UREA NITROGEN 26 mg/dL (6-20); CARBON DIOXIDE - CO2 15 mmol/L (21-32); CHLORIDE 107 mmol/L (101-111); GFR - MDRD 52 (>89); GLUCOSE 141 mg/dL (70-100); MAGNESIUM 1.9 mg/dL (1.7-2.8); PHOSPHORUS 2.3 mg/dL (2.5-4.6); SODIUM 132 mmol/L (135-145); TOTAL PROTEIN 4.9 g/dL (6.7-8.2)
[2018-04-17 04:01] LABS: CALCIUM 6.4 mg/dL (8.5-10.3)
[2018-04-17 04:08] LABS: VBG PH 7.357 (7.31-7.41)
[2018-04-17] MEDS ORDERED: POTASSIUM CHLORIDE 20 MEQ TABLET PO ONE (04:28)
[2018-04-17] MEDS ORDERED: CALCIUM GLUCONATE 1,000 MG in SODIUM CHLORIDE 0.9% 50 ML IV ONE (05:00)
[2018-04-17] MEDS: AMIODARONE 360 MG/200 ML 200 ML IV SCH (06:23)
[2018-04-17] MEDS: PANTOPRAZOLE 40 MG VIAL IVP SCH (06:28)
[2018-04-17] MEDS: LEVOTHYROXINE 25 MCG TABLET PO SCH (06:30)
[2018-04-17] MEDS: NEUTRA-PHOS 250 MG TABLET PO SCH ×2 (06:30→08:14)
[2018-04-17] MEDS ORDERED: levoFLOXacin 750 MG/150 ML 750 MG/150 ML BAG IV SCH (08:00)
[2018-04-17] MEDS: ASPIRIN EC 81 MG TABLET PO SCH (08:13)
[2018-04-17] MEDS: POTASSIUM CHLORIDE 10 MEQ CAPSULE PO SCH (08:13)
[2018-04-17] MEDS: POLYETHYLENE GLYCOL 3350 17 GM PACKET PO SCH (08:14)
[2018-04-17] MEDS: CLOTRIMAZOLE 1% CREAM 15 GM TUBE TOP SCH (08:15)
[2018-04-17] MEDS: cefTRIAXone 2 GM in SODIUM CHLORIDE 0.9% MINIBAG 100 ML IV SCH (08:40)
[2018-04-17] MEDS: ENOXAPARIN 40 MG/0.4 ML SYRINGE SUBQ SCH (08:46)
--- NOTE | 2018-04-17 12:44 | XRAY Report ---
Procedure Date: 04/17/2018 Accession Number: [id number] / [id number] Procedure: XR - Ankle 3 View LT CPT Code: FULL RESULT: EXAM: Ankle 3 View LT DATE: 04/17/2018 12:37 PM CLINICAL HISTORY: Pain and swelling looking for an effusion COMPARISON: None. TECHNIQUE: 3 views. FINDINGS: Bones: Mild degenerative calcaneal spurring. No evidence of acute fracture. Joints: Normal. No tibiotalar joint effusion. No subluxations. Soft Tissues: Soft tissue swelling. IMPRESSION: Soft tissue swelling. No evidence of joint effusion. Mild degenerative calcaneal spurring. RADIA
[2018-04-17] MEDS: diltiaZEM 30 MG TABLET PO SCH ×2 (13:32→18:17)
[2018-04-17] MEDS: AMIODARONE 200 MG TABLET PO SCH (18:17)
--- NOTE | 2018-04-17 18:31 | PROVIDER PROGRESS NOTE ---
Assessment/Plan - Problem List (1) Septic shock Assessment/Plan: Patient presented with fever, tachycardia, leukocytosis and bandemia. She had an elevated lactic acid of 4.0. The patient did have a mild elevation in her creatinine up to 1.1 from 0.7 and mild elevation in her troponin up to 0.43. The patient appeared to have severe sepsis with endorgan damage. The patient also had metabolic encephalopathy as she was confused. The patient underwent extensive workup for source of infection and was found to have a left lower extremity cellulitis as the likely source of her sepsis. Blood cultures were positive with group G strep likely source being the left leg cellulitis on 04/15/18 and are again positive on 04/16/18 On 04/16/18 morning patient was hypotensive despite several IV fluid boluses patient remained hypotensive with SBP in 70 Worsening leukocytosis and fever of 38.8 also on 04/16/18 Transferred to ICU and placed on levophed on 04/16/18 Lactic acid initially increased to 4.2 then improved to normal Off levophed now and maintaining her BP Still very tachycardic with a fib Plan: Broad-spectrum IV antibiotics with IV vancomycin and Zosyn day 3 will stop and change to IV ceftriaxone per susceptibilities IVFs need to be careful as patient has decreased EF Repeat blood cx is positive in 1 of 2 bottles COntinue to repeat cx till negative (2) Bacteremia Conclusion/Plan: Group G Strep Likely source is left lower extremity cellulitis Echo negative for endocarditis Plan: Repeat blood cultures as second set was also positive in 1 of 2 bottles COntinue IV vanco and zosyn day 3 today will stop and start ceftriaxone IV according to susceptibilities Await repeat cultures (3) Cellulitis of left leg Conclusion/Plan: Patient presented with left lower extremity pain on exam she appears to have a swollen, tender, warm and red left lower extremity that appears to be infected. The patient likely has cellulitis as the source of her severe sepsis. Given that the patient does have septic shock we will use broad-spectrum IV antibiotics. Patient has bacteremia with group g strep and likely source is cellulitis Plan: Start IV ceftriaxone and stop IV vanco and zosyn Repeat blood cx today as yesterday was again positive Given persistently positive blood cx and swollen ankle concern for possible septic joint therefore x ray of the left ankle done which showed no effusion and just soft tissue swelling (4) Atrial fibrillation with RVR Conclusion/Plan: The patient presented with tachycardia which initially appeared to be sinus tachycardia with a heart rate of 142. On arrival to the medical poe the patient continued to be tachycardic with heart rate up to the 150s. The patient was given 2 doses of diltiazem in the emergency department which did seem to slow her heart rate down. The patient's EKG appears to show a right bundle branch block but it is difficult to assess if the patient has sinus rhythm or atrial fibrillation on her monitor it does appear she has atrial fibrillation. The patient does not herself know about a history of atrial fibrillation but looking back at a EMS note from 08/2017 the patient did have tachycardia at that time with a heart rate in the 180s but declined to come to the hospital. It appears the patient likely does have A. fib with RVR and will be treated as such. Patient continues to have HR of 150s this am and secondary to septic shock metoprolol stopped this am Echocardiogram shows reduced EF of 40% Telemetry monitoring shows irregular wide complex tachycardia Plan: Started amiodarone drip completed today and HR still in 120s Start PO amiodarone tomorrow Start PO dilt Restart PO metoprolol Monitor HR Hold off anticoagulation given patients age (5) Acute kidney injury Conclusion/Plan: The patient's baseline creatinine is 0.7 and on presentation it is elevated to 1.1 with an elevated BUN of 23. The patient does appear to be dry on examination and does have severe sepsis with likely acute kidney injury due to prerenal azotemia. Continue IVFs We will avoid nephrotoxic agents We will monitor patient's creatinine Improved elevated to 1.0 (6) Metabolic encephalopathy Conclusion/Plan: On presentation to the emergency department the patient was quite confused and although she does appear to have some underlying dementia it is difficult to know how much of her confusion is acute but given that she has severe sepsis it is likely that there is some component of metabolic encephalopathy. We will treat the patient's underlying infection and give her IV fluids and hope that she does have improvement in her mentation. Improving appears to be closer to baseline and does not appear to have significant dementia (7) Hyperglycemia Conclusion/Plan: Patient is hyperglycemic on presentation with a glucose of 155 which is likely a stress response secondary to her ongoing infection. The patient's hemoglobin A1c was 6.5 which is right on the borderline. We will not start any insulin at this time however the patient's blood glucose does become elevated on her daily labs will consider starting her on a sliding scale insulin. The patient does not have any history of diabetes. BG mildly elevated this am (8) Elevated troponin Conclusion/Plan: The patient has a mildly elevated troponin on presentation of 0.43 her repeat troponin was 0.38 than 0.43. Likely this elevation in her troponin is due to end organ damage from severe sepsis. Also there may be some contribution from her having tachycardia for what may have been a prolonged period of time prior to arriving to the emergency department. Patient does not have any ST elevations on her EKG and it does not appear that she has acute ischemia. Trop stable Plan: Telemetry monitoring Echocardiogram showed no wall motion abnormalities but did show a reduced EF of 40% Treat A. fib with RVR to get rate control (9) Hypertension Conclusion/Plan: Restart metoprolol for rate control Start diltiazem Qualifiers: Hypertension type: essential hypertension Qualified Code(s): I10 - Essential (primary) hypertension (10) Hypothyroidism Conclusion/Plan: Patient is a history of hypothyroidism and takes Synthroid at home. We will continue her on her home dose of Synthroid. TSH is normal Qualifiers: Hypothyroidism type: unspecified Qualified Code(s): E03.9 - Hypothyroidism , unspecified (11) Hyperlipidemia Conclusion/Plan: Patient has a history of hyperlipidemia and takes atorvastatin at home. We will continue the patient's home dose of atorvastatin. Qualifiers: Hyperlipidemia type: unspecified Qualified Code(s): E78.5 - Hyperlipidemia , unspecified - Current Meds Current Meds: Current Medications Generic Name Dose Route Start Last Admin Trade Name Freq PRN Reason Stop Dose Admin Acetaminophen 650 mg 04/15/18 16:28 04/16/18 19:35 Tylenol PO 650 mg Q4HR PRN Administration Pain 1 to 4 Amiodarone HCl 400 mg 04/17/18 18:00 04/17/18 18:17 Pacerone PO 400 mg DAILY REKHA Administration Aspirin 81 mg 04/16/18 09:00 04/17/18 08:13 Ecotrin PO 81 mg DAILY REKHA Administration Atorvastatin Calcium 40 mg 04/15/18 21:00 04/16/18 21:17 Lipitor PO 40 mg QPM REKHA Administration Clotrimazole 1 applic 04/16/18 09:00 04/17/18 08:15 Lotrimin 1% Cream TOP Not Given DAILY REKHA Diltiazem HCl 30 mg 04/17/18 13:00 04/17/18 18:17 Cardizem PO 30 mg Q6HR REKHA Administration Enoxaparin Sodium 40 mg 04/16/18 09:00 04/17/18 08:46 Lovenox SUBQ 40 mg DAILY REKHA Administration Sodium Chloride 1,000 mls @ 120 mls/hr 04/16/18 14:00 04/17/18 18:00 Normal Saline 0.9% IV 120 mls/hr .Q8H20M REKHA Infusion Ceftriaxone Sodium 2 gm/ 100 mls @ 200 mls/hr 04/17/18 08:30 04/17/18 09:10 Sodium Chloride IV Infused DAILY REKHA Infusion Levothyroxine Sodium 50 mcg 04/16/18 07:00 04/17/18 06:30 Synthroid PO 50 mcg QDAC REKHA Administration Metoprolol Tartrate 5 mg 04/16/18 23:57 04/17/18 06:28 Lopressor Inj IVP 5 mg Q6H PRN Administration Hypertensive Emergency Pantoprazole Sodium 40 mg 04/16/18 08:00 04/17/18 06:28 Protonix IVP 40 mg QDAC REKHA Administration Polyethylene Glycol 17 gm 04/16/18 09:00 04/17/18 08:14 Miralax PO Not Given DAILY REKHA Potassium Chloride 10 meq 04/16/18 09:00 04/17/18 08:13 Micro-K PO 10 meq DAILY REKHA Administration Sodium Chloride 10 ml 04/15/18 17:00 04/17/18 17:05 Normal Saline Flush 0.9% IVP 10 ml 0100,0900,1700 REKHA Administration Sodium Chloride 10 ml 04/16/18 07:46 04/17/18 06:28 Normal Saline Flush 0.9% IVP 10 ml PRN PRN Administration NEEDED PER PROVIDER ORDERS - Lab Result Lab results reviewed: Yes Fish Bone Diagrams: 04/17/18 03:05 04/17/18 03:05 - Diagnostic Imaging Results Diagnostic Imaging Results: Final report reviewed - Additional Planning Condition/Complexity: Guarded My Orders: My Active Orders 04/17/18 Wound Consult MAC [MAC] Routine 04/17/18 08:30 cefTRIAXone [Rocephin] 2 gm Sodium Chloride 0.9% Minibag [Normal Saline 0.9% Minibag] 100 ml IV DAILY 04/17/18 13:00 diltiaZEM [Cardizem] 30 mg PO Q6HR 04/17/18 15:05 CULTURE, BLOOD #1 [RM] Routine 04/17/18 15:17 CULTURE, BLOOD #2 [RM] Routine 04/17/18 18:00 Amiodarone [Pacerone] 400 mg PO DAILY 04/18/18 05:00 BNP - B-NATRIURETIC PEPTIDE [IAI] DAILYLAB 04/19/18 05:00 BNP - B-NATRIURETIC PEPTIDE [IAI] DAILYLAB 04/20/18 05:00 BNP - B-NATRIURETIC PEPTIDE [IAI] DAILYLAB Plan Discussed with:: Patient, Family Time Spent: Greater than 60 minutes Subjective - Subjective Patient Reports: Other (No fevers overnight, more alert this am and appropriate. No need for pressors overnight. Heart rate still elevated. Feels weak.) Nursing Reports: No Complaints Objective Vital Signs: Vital Signs - 24 hr 04/16/18 04/16/18 04/16/18 19:27 20:00 21:00 Temperature 38.5 C H Heart Rate [ 121 H 131 H 128 H Monitoring electrodes] Respiratory 28 H 33 H 29 H Rate Blood Pressure Blood Pressure 118/77 134/75 H 119/68 [Left Brachial artery] O2 Saturation 94 94 96 04/16/18 04/16/18 04/16/18 21:19 22:00 22:27 Temperature 37.3 C 36.4 C L Heart Rate [ 124 H Monitoring electrodes] Respiratory 23 Rate Blood Pressure Blood Pressure 117/73 [Left Brachial artery] O2 Saturation 96 04/16/18 04/17/18 04/17/18 23:00 00:00 00:09 Temperature 36.8 C Heart Rate [ 130 H 129 H Monitoring electrodes] Respiratory 24 29 H Rate Blood Pressure 120/74 Blood Pressure 125/72 120/74 [Left Brachial artery] O2 Saturation 98 97 04/17/18 04/17/18 04/17/18 00:13 00:15 00:20 Temperature Heart Rate [ 121 H 119 H 122 H Monitoring electrodes] Respiratory Rate Blood Pressure Blood Pressure 98/62 101/63 93/67 [Left Brachial artery] O2 Saturation 04/17/18 04/17/18 04/17/18 00:25 00:30 00:45 Temperature Heart Rate [ 118 H 120 H 119 H Monitoring electrodes] Respiratory Rate Blood Pressure 93/79 Blood Pressure 92/64 93/79 115/97 H [Left Brachial artery] O2 Saturation 04/17/18 04/17/18 04/17/18 01:00 02:00 03:00 Temperature Heart Rate [ 122 H 116 H 123 H Monitoring electrodes] Respiratory 27 H 28 H 29 H Rate Blood Pressure Blood Pressure 90/63 99/65 113/66 [Left Brachial artery] O2 Saturation 97 98 97 04/17/18 04/17/18 04/17/18 04:00 05:00 06:00 Temperature 37.3 C Heart Rate [ 125 H 126 H 127 H Monitoring electrodes] Respiratory 26 H 25 H 25 H Rate Blood Pressure Blood Pressure 104/72 106/73 118/82 H [Left Brachial artery] O2 Saturation 96 96 97 04/17/18 04/17/18 04/17/18 06:22 06:28 06:30 Temperature Heart Rate [ 128 H 120 H Monitoring electrodes] Respiratory Rate Blood Pressure 122/81 H Blood Pressure 122/81 H 100/72 [Left Brachial artery] O2 Saturation 04/17/18 04/17/18 04/17/18 06:35 06:40 06:45 Temperature Heart Rate [ 115 H 116 H 115 H Monitoring electrodes] Respiratory Rate Blood Pressure Blood Pressure 97/74 104/76 103/73 [Left Brachial artery] O2 Saturation 04/17/18 04/17/18 04/17/18 06:55 07:01 08:00 Temperature Heart Rate [ 116 H 111 H Monitoring electrodes] Respiratory 27 H 28 H Rate Blood Pressure 103/70 Blood Pressure 94/71 103/75 [Left Brachial artery] O2 Saturation 90 L 93 04/17/18 04/17/18 04/17/18 09:00 10:00 11:00 Temperature 36.6 C Heart Rate [ 127 H 117 H 125 H Monitoring electrodes] Respiratory 24 28 H 29 H Rate Blood Pressure Blood Pressure 115/81 H 122/75 100/81 H [Left Brachial artery] O2 Saturation 04/17/18 04/17/18 04/17/18 12:00 13:00 13:32 Temperature Heart Rate [ 124 H 135 H Monitoring electrodes] Respiratory 27 H 28 H Rate Blood Pressure 124/97 H Blood Pressure 118/89 H 124/97 H [Left Brachial artery] O2 Saturation 07/13/18 07/13/18 07/13/18 14:00 15:00 16:00 Temperature Heart Rate [ 126 H 130 H 127 H Monitoring electrodes] Respiratory 25 H 23 28 H Rate Blood Pressure Blood Pressure 132/90 H 113/75 116/77 [Left Brachial artery] O2 Saturation 92 04/17/18 04/17/18 04/17/18 17:00 18:00 18:17 Temperature Heart Rate [ 127 H 121 H Monitoring electrodes] Respiratory 28 H 29 H Rate Blood Pressure 111/77 Blood Pressure 124/76 111/77 [Left Brachial artery] O2 Saturation 93 Oxygen O2 Source Room air I&O (Last 24 Hrs): Intake and Output Totals x24h 04/15/18 04/16/18 04/17/18 23:59 23:59 23:59 Intake Total 2852.083 8111.067 4085.766 Output Total 1904 1034 Balance 2852.083 6207.067 3051.766 General: Alert, Oriented x3, Cooperative, Mild distress (weak, sick) HEENT: Atraumatic, PERRLA, EOMI, Other (dry mucus membranes) Neck: Supple, No JVD, No thyromegaly, +2 carotid pulse wo bruit, No LAD Lymphatic: no adenopathy Neuro: Alert, Non Focal, CN 2-12 Grossly Intact, Oriented Times 3 Cardiovascular: Other (tachycardic and irregular, systolic murmur) Respiratory: Chest non-tender, No respiratory distress, Rales (bases, mild) Abdomen: Normal bowel sounds, Soft, No tenderness, No hepatospenomegaly, No masses Extremities: No clubbing, No cyanosis, Normal pulses, Other (left lower extremity cellultis slightly improved) Comments/Notes: LLE red, swollen and warm - Results Results: Laboratory Results WBC 14.5 x10^3/uL (4.8-10.8) H 04/17/18 03:05 RBC 3.55 10^6/uL (4.20-5.40) L 04/17/18 03:05 Hgb 11.5 g/dL (12.0-16.0) L 04/17/18 03:05 Hct 33.3 % (37.0-47.0) L 04/17/18 03:05 MCV 94.0 fL (81.0-99.0) 04/17/18 03:05 MCH 32.4 pg (27.0-31.0) H 04/17/18 03:05 MCHC 34.5 g/dL (32.0-36.0) 04/17/18 03:05 RDW 15.2 % (12.0-15.0) H 04/17/18 03:05 Plt Count 117 10^3/uL (130-450) L 04/17/18 03:05 MPV 9.2 fL (7.9-10.8) 04/17/18 03:05 Neut # (Auto) Not Reportable 04/17/18 03:05 Lymph # (Auto) Not Reportable 04/17/18 03:05 [place] # (Auto) Not Reportable 04/17/18 03:05 Eos # (Auto) Not Reportable 04/17/18 03:05 Baso # (Auto) Not Reportable 04/17/18 03:05 Absolute Nucleated RBC Not Reportable 04/17/18 03:05 Total Counted 100 04/17/18 03:05 Band Neuts % (Manual) 5 % (0-10) 04/17/18 03:05 Abnorm Lymph % (Manual) 0 % 04/17/18 03:05 Nucleated RBC % Not Reportable 04/17/18 03:05 Neutrophils # (Manual) 12.6 10^3/uL (1.5-6.6) H 04/17/18 03:05 Lymphocytes # (Manual) 1.0 10^3/uL (1.5-3.5) L 04/17/18 03:05 Monocytes # (Manual) 0.7 10^3/uL (0.0-1.0) 04/17/18 03:05 Eosinophils # (Manual) 0.1 10^3/uL (0-0.7) 04/17/18 03:05 Basophils # (Manual) 0.0 10^3/uL (0-0.1) 04/17/18 03:05 Differential Comment MANUAL DIFFERENTIAL 04/17/18 03:05 Manual Slide Review Indicated 04/15/18 13:09 WBC Morphology 2+ VACUOLA (NORMAL) 04/15/18 13:09 Platelet Estimate DECREASED (<130,000) (NORMAL) 04/17/18 03:05 Platelet Morphology NORMAL APPEARANCE (NORMAL) 04/15/18 13:09 RBC Morph Micro Appear NORMAL APPEARANCE (NORMAL) 04/17/18 03:05 VBG pH 7.357 (7.31-7.41) 04/17/18 03:05 Ionized Calcium 0.94 mmol/L (1.15-1.33) L 04/17/18 03:05 Sodium 132 mmol/L (135-145) L 04/17/18 03:05 Potassium 3.2 mmol/L (3.5-5.0) L 04/17/18 03:05 Chloride 107 mmol/L (101-111) 04/17/18 03:05 Carbon Dioxide 15 mmol/L (21-32) L 04/17/18 03:05 Anion Gap 10.0 (6-13) 04/17/18 03:05 BUN 26 mg/dL (6-20) H 04/17/18 03:05 Creatinine 1.0 mg/dL (0.4-1.0) 04/17/18 03:05 Estimated GFR (MDRD) 52 (>89) L 04/17/18 03:05 Glucose 141 mg/dL (70-100) H 04/17/18 03:05 Glycated Hemoglobin 6.5 % (4.6-6.2) H 04/15/18 16:49 Estim Average Glucose 140 (70-100) H 04/15/18 16:49 Lactic Acid 1.7 mmol/L (0.5-2.2) 04/16/18 06:33 Calcium 6.4 mg/dL (8.5-10.3) L* 04/17/18 03:05 Ionized Calcium YES 04/17/18 03:05 Phosphorus 2.3 mg/dL (2.5-4.6) L 04/17/18 03:05 Magnesium 1.9 mg/dL (1.7-2.8) 04/17/18 03:05 Total Bilirubin 0.8 mg/dL (0.2-1.0) 04/17/18 03:05 AST 78 IU/L (10-42) H 04/17/18 03:05 ALT 53 IU/L (10-60) 04/17/18 03:05 Alkaline Phosphatase 57 IU/L (42-121) 04/17/18 03:05 Troponin I 0.46 ng/mL (<0.49) 04/16/18 03:10 B-Natriuretic Peptide 585 pg/mL (5-100) H 04/17/18 03:05 Total Protein 4.9 g/dL (6.7-8.2) L 04/17/18 03:05 Albumin 2.1 g/dL (3.2-5.5) L 04/17/18 03:05 Globulin 2.8 g/dL (2.1-4.2) 04/17/18 03:05 Albumin/Globulin Ratio 0.8 (1.0-2.2) L 04/17/18 03:05 Lipase 22 U/L (22-51) 04/15/18 13:09 TSH 2.90 uIU/mL (0.34-5.60) 04/16/18 03:10 Urine Color YELLOW 04/15/18 13:04 Urine Clarity CLEAR (CLEAR) 04/15/18 13:04 Urine pH 6.0 PH (5.0-7.5) 04/15/18 13:04 Ur Specific [place] 1.025 (1.002-1.030) 04/15/18 13:04 Urine Protein 100 mg/dL (NEGATIVE) H 04/15/18 13:04 Urine Glucose (UA) NEGATIVE mg/dL (NEGATIVE) 04/15/18 13:04 Urine Ketones TRACE mg/dL (NEGATIVE) 04/15/18 13:04 Urine Occult Blood LARGE (NEGATIVE) H 04/15/18 13:04 Urine Nitrite NEGATIVE (NEGATIVE) 04/15/18 13:04 Urine Bilirubin NEGATIVE (NEGATIVE) 04/15/18 13:04 Urine Urobilinogen 0.2 (NORMAL) E.U./dL (NORMAL) 04/15/18 13:04 Ur Leukocyte Esterase NEGATIVE (NEGATIVE) 04/15/18 13:04 Urine RBC 0-5 /HPF (0-5) 04/15/18 13:04 Urine WBC 0-3 /HPF (0-5) 04/15/18 13:04 Ur Squamous Epith Cells MOD Squamous (<= Few) H 04/15/18 13:04 Urine Bacteria Few /HPF (None Seen) 04/15/18 13:04 Urine Mucus Few Strands 04/15/18 13:04 Ur Microscopic Review INDICATED 04/15/18 13:04 Urine Culture Comments NOT INDICATED 04/15/18 13:04 ABX Reporting Has patient been on IV antibiotics over the past 48 hours?: Yes Current Medications - Current Medications Current Medications: Active Medications Generic Name Dose Route Start Last Admin Trade Name Freq PRN Reason Stop Dose Admin Acetaminophen 650 mg 04/15/18 16:28 04/16/18 19:35 Tylenol PO 650 mg Q4HR PRN Administration Pain 1 to 4 Amiodarone HCl 400 mg 04/17/18 18:00 04/17/18 18:17 Pacerone PO 400 mg DAILY REKHA Administration Aspirin 81 mg 04/16/18 09:00 04/17/18 08:13 Ecotrin PO 81 mg DAILY REKHA Administration Atorvastatin Calcium 40 mg 04/15/18 21:00 04/16/18 21:17 Lipitor PO 40 mg QPM REKHA Administration Clotrimazole 1 applic 04/16/18 09:00 04/17/18 08:15 Lotrimin 1% Cream TOP Not Given DAILY REKHA Diltiazem HCl 30 mg 04/17/18 13:00 04/17/18 18:17 Cardizem PO 30 mg Q6HR REKHA Administration Enoxaparin Sodium 40 mg 04/16/18 09:00 04/17/18 08:46 Lovenox SUBQ 40 mg DAILY REKHA Administration Sodium Chloride 1,000 mls @ 120 mls/hr 04/16/18 14:00 04/17/18 18:00 Normal Saline 0.9% IV 120 mls/hr .Q8H20M REKHA Infusion Ceftriaxone Sodium 2 gm/ 100 mls @ 200 mls/hr 04/17/18 08:30 04/17/18 09:10 Sodium Chloride IV Infused DAILY REKHA Infusion Levothyroxine Sodium 50 mcg 04/16/18 07:00 04/17/18 06:30 Synthroid PO 50 mcg QDAC REKHA Administration Metoprolol Tartrate 5 mg 04/16/18 23:57 04/17/18 06:28 Lopressor Inj IVP 5 mg Q6H PRN Administration Hypertensive Emergency Morphine Sulfate 2 mg 04/15/18 16:28 Morphine IVP Q2H PRN Pain 8 to 10 Ondansetron HCl 4 mg 04/15/18 16:28 Zofran Inj IVP Q6HR PRN Nausea / Vomiting Oxycodone HCl 5 mg 04/15/18 16:28 Roxicodone PO Q4HR PRN Pain 5 to 7 Oxycodone HCl 10 mg 04/15/18 16:28 Roxicodone PO Q4HR PRN Pain 8 to 10 Pantoprazole Sodium 40 mg 04/16/18 08:00 04/17/18 06:28 Protonix IVP 40 mg QDAC REKHA Administration Polyethylene Glycol 17 gm 04/16/18 09:00 04/17/18 08:14 Miralax PO Not Given DAILY REKHA Potassium Chloride 10 meq 04/16/18 09:00 04/17/18 08:13 Micro-K PO 10 meq DAILY REKHA Administration Prochlorperazine Edisylate 10 mg 04/15/18 16:28 Compazine Inj IVP Q6HR PRN Nausea / Vomiting Promethazine HCl 25 mg 04/15/18 16:28 Phenergan Inj IM Q6HR PRN Nausea / Vomiting Sodium Chloride 10 ml 04/15/18 17:00 04/17/18 17:05 Normal Saline Flush 0.9% IVP 10 ml 0100,0900,1700 REKHA Administration Sodium Chloride 10 ml 04/16/18 07:46 04/17/18 06:28 Normal Saline Flush 0.9% IVP 10 ml PRN PRN Administration NEEDED PER PROVIDER ORDERS Zolpidem Tartrate 5 mg 04/15/18 16:28 Ambien PO QPM PRN Insomnia Aspirin [Aspirin EC] 81 mg PO DAILY 04/15/18 Atorvastatin Calcium 40 mg PO QPM 04/15/18 Clotrimazole [Clotrimazole AF] 1 applic TOP DAILY 04/15/18 Levothyroxine Sodium 50 mcg PO QDAC 04/15/18 Metoprolol Succinate 50 mg PO DAILY 04/15/18 Potassium Chloride 10 meq PO DAILY 04/15/18
[2018-04-17] MEDS: ATORVASTATIN 40 MG TABLET PO SCH (21:09)
[2018-04-18] MEDS: diltiaZEM 30 MG TABLET PO SCH ×4 (00:04→18:19)
[2018-04-18] MEDS: METOPROLOL 5 MG/5 ML VIAL IVP PRN ×2 (01:19→08:58)
[2018-04-18] MEDS: SODIUM CHLORIDE FLUSH 0.9% 10 ML SYRINGE IVP SCH ×3 (01:20→18:12)
[2018-04-18] MEDS: SODIUM CHLORIDE 0.9% 1,000 ML IV SCH ×2 (03:16→14:30)
[2018-04-18 05:39] LABS: BASOPHILS % (AUTO) 0.1 %; EOSINOPHILS # (AUTO) 0.1 10^3/uL (0.0-0.7); EOSINOPHILS % (AUTO) 1.1 %; HGB - HEMOGLOBIN 11.9 g/dL (12.0-16.0); LYMPHOCYTES # (AUTO) 0.7 10^3/uL (1.5-3.5); LYMPHOCYTES % (AUTO) 6.7 %; MEAN CORPUSCULAR HEMOGLOBIN 31.6 pg (27.0-31.0); MEAN CORPUSCULAR HGB CONC 33.5 g/dL (32.0-36.0); MEAN CORPUSCULAR VOLUME 94.2 fL (81.0-99.0); MONOCYTES # (AUTO) 0.8 10^3/uL (0.0-1.0); MONOCYTES % (AUTO) 7.4 %; NEUTROPHILS # (AUTO) 9.4 10^3/uL (1.5-6.6); NEUTROPHILS % (AUTO) 84.7 %; PLT - PLATELET COUNT 145 10^3/uL (130-450); RED BLOOD COUNT 3.77 10^6/uL (4.20-5.40); WHITE BLOOD COUNT 11.1 x10^3/uL (4.8-10.8)
[2018-04-18 05:45] LABS: ALBUMIN/GLOBULIN RATIO 0.6 (1.0-2.2); ALKALINE PHOSPHATASE 61 IU/L (42-121); ALT ALANINE AMINOTRANSFERASE 70 IU/L (10-60); AST ASPARTATE AMINOTRANSFERASE 100 IU/L (10-42); BILIRUBIN,TOTAL 0.7 mg/dL (0.2-1.0); BUN - BLOOD UREA NITROGEN 25 mg/dL (6-20); CALCIUM 6.8 mg/dL (8.5-10.3); CARBON DIOXIDE - CO2 17 mmol/L (21-32); CHLORIDE 106 mmol/L (101-111); CREATININE 0.9 mg/dL (0.4-1.0); GFR - MDRD 59 (>89); GLUCOSE 130 mg/dL (70-100); PHOSPHORUS 2.1 mg/dL (2.5-4.6); SODIUM 132 mmol/L (135-145); TOTAL PROTEIN 5.4 g/dL (6.7-8.2)
[2018-04-18] MEDS ORDERED: CALCIUM GLUCONATE 2,000 MG in SODIUM CHLORIDE 0.9% 100ML 100 ML IV ONE ×2 (06:05→08:00)
[2018-04-18 06:11] LABS: VBG PH 7.332 (7.31-7.41)
[2018-04-18] MEDS ORDERED: CALCIUM GLUCONATE 1,000 MG in SODIUM CHLORIDE 0.9% 50 ML IV ONE (06:17)
[2018-04-18] MEDS: LEVOTHYROXINE 25 MCG TABLET PO SCH (06:25)
[2018-04-18] MEDS: PANTOPRAZOLE 40 MG VIAL IVP SCH (06:25)
[2018-04-18] MEDS: POTASSIUM CHLOR 10 MEQ/100 ML 10 MEQ/100 ML BAG IV SCH ×4 (06:26→09:36)
[2018-04-18] MEDS ORDERED: POTASSIUM PHOSPHATE 15 MMOL in SODIUM CHLORIDE 0.9% 250 ML IV ONE ×2 (08:00→09:00)
[2018-04-18] MEDS: AMIODARONE 200 MG TABLET PO SCH (08:24)
[2018-04-18] MEDS: NEUTRA-PHOS 250 MG TABLET PO SCH ×2 (08:24→10:51)
[2018-04-18] MEDS: ASPIRIN EC 81 MG TABLET PO SCH ×3 (08:25→21:11)
[2018-04-18] MEDS: POTASSIUM CHLORIDE 10 MEQ CAPSULE PO SCH (08:25)
[2018-04-18] MEDS: POLYETHYLENE GLYCOL 3350 17 GM PACKET PO SCH (08:57)
[2018-04-18] MEDS ORDERED: METOPROLOL SUCCINATE 50 MG TABLET PO SCH (09:00)
[2018-04-18] MEDS: cefTRIAXone 2 GM in SODIUM CHLORIDE 0.9% MINIBAG 100 ML IV SCH (09:31)
[2018-04-18] MEDS: ENOXAPARIN 40 MG/0.4 ML SYRINGE SUBQ SCH (09:49)
--- NOTE | 2018-04-18 13:00 | XRAY Report ---
Procedure Date: 04/18/2018 Accession Number: [id number] / [id number] Procedure: XR - Chest 1 View X-Ray CPT Code: 39633 FULL RESULT: EXAM: CHEST RADIOGRAPHY EXAM DATE: 04/18/2018 11:19 AM. CLINICAL HISTORY: Shortness of breath. COMPARISON: Previous exam of 04/16/2018. TECHNIQUE: 1 view. FINDINGS: Lungs/Pleura: Interval development of moderate pulmonary edema pattern, with small bilateral effusions. There is hypoventilation. Mediastinum: Within exam limitations, the cardiomediastinal contour is normal. Poststernotomy changes present, with prosthetic valve in place. Other: None. IMPRESSION: Developing moderate pulmonary edema pattern with small bilateral effusions. RADIA
[2018-04-18] MEDS ORDERED: FUROSEMIDE 40 MG/4 ML VIAL IVP STA (14:08)
[2018-04-18] MEDS ORDERED: FUROSEMIDE 40 MG/4 ML VIAL IVP SCH (14:17)
[2018-04-18] MEDS: CLOTRIMAZOLE 1% CREAM 15 GM TUBE TOP SCH (14:19)
--- NOTE | 2018-04-18 17:21 | PROVIDER PROGRESS NOTE ---
Assessment/Plan - Problem List (1) Septic shock Assessment/Plan: Patient presented with fever, tachycardia, leukocytosis and bandemia. She had an elevated lactic acid of 4.0. The patient did have a mild elevation in her creatinine up to 1.1 from 0.7 and mild elevation in her troponin up to 0.43. The patient appeared to have severe sepsis with endorgan damage. The patient also had metabolic encephalopathy as she was confused. The patient underwent extensive workup for source of infection and was found to have a left lower extremity cellulitis as the likely source of her sepsis. Blood cultures were positive with group G strep likely source being the left leg cellulitis on 04/15/18 and are again positive on 04/16/18 On 04/16/18 morning patient was hypotensive despite several IV fluid boluses patient remained hypotensive with SBP in 70 Worsening leukocytosis and fever of 38.8 also on 04/16/18 Transferred to ICU and placed on levophed on 04/16/18 Lactic acid initially increased to 4.2 then improved to normal Off levophed now and maintaining her BP Still tachycardic with a fib More alert and improving slowly Plan: Ceftriaxone day 2 Stop IVFs as patient is developing pulmonary edema Repeat blood cx from yesterday is negative Resolving (2) Bacteremia Conclusion/Plan: Group G Strep Likely source is left lower extremity cellulitis Echo negative for endocarditis X ray of ankle negative for effusion Plan: Repeat blood cultures negative from yesterday IV ceftriaxone day 2 - cultures show susceptibility to ceftriaxone (3) Cellulitis of left leg Conclusion/Plan: Patient presented with left lower extremity pain on exam she appears to have a swollen, tender, warm and red left lower extremity that appears to be infected. The patient likely has cellulitis as the source of her severe sepsis. Given that the patient does have septic shock we will use broad-spectrum IV antibiotics. Patient has bacteremia with group g strep and likely source is cellulitis Xray of left ankle negative for effusion Plan: Start IV ceftriaxone day 2 Repeat blood cx negative (4) Atrial fibrillation with RVR Conclusion/Plan: The patient presented with tachycardia which initially appeared to be sinus tachycardia with a heart rate of 142. On arrival to the medical poe the patient continued to be tachycardic with heart rate up to the 150s. The patient was given 2 doses of diltiazem in the emergency department which did seem to slow her heart rate down. The patient's EKG appears to show a right bundle branch block but it is difficult to assess if the patient has sinus rhythm or atrial fibrillation on her monitor it does appear she has atrial fibrillation. The patient does not herself know about a history of atrial fibrillation but looking back at a EMS note from 08/2017 the patient did have tachycardia at that time with a heart rate in the 180s but declined to come to the hospital. It appears the patient likely does have A. fib with RVR and will be treated as such. Patient continues to have HR of 150s this am and secondary to septic shock metoprolol stopped this am Echocardiogram shows reduced EF of 40% Telemetry monitoring shows atrial flutter/fib Patient continues to be tachycardic with HR in the 130s this am and given pulmonary edema seen on CXR I am concerned that tachycardia maybe secondary to CHF and volume overload Plan: Start IV lasix Increase metoprolol to 100 mg Increase Diltiazem to 60 mg q6 hours Continue IV metoprolol as needed Stop amiodarone as patient did not convert to SR and did not seem to improve HR Tele Will talk to patient about anticoagulation once improved (5) Systolic Heart Failure NYHA class I Conclusion/Plan: Echocardiogram showed no wall motion abnormalities but did show a reduced EF of 40% Patient short of breath CXR shows pulmonary edema and crackles on exam Could be contributing to a fib rvr Start IV lasix BID Continue metoprolol Start lisinopril once patient able to tolerate (6) Acute kidney injury Conclusion/Plan: The patient's baseline creatinine is 0.7 and on presentation it is elevated to 1.1 with an elevated BUN of 23. The patient does appear to be dry on examination and does have severe sepsis with likely acute kidney injury due to prerenal azotemia. Continue IVFs We will avoid nephrotoxic agents We will monitor patient's creatinine Improved elevated to 0.9 (7) Metabolic encephalopathy Conclusion/Plan: On presentation to the emergency department the patient was quite confused and although she does appear to have some underlying dementia it is difficult to know how much of her confusion is acute but given that she has severe sepsis it is likely that there is some component of metabolic encephalopathy. We will treat the patient's underlying infection and give her IV fluids and hope that she does have improvement in her mentation. Improving appears to be closer to baseline and does not appear to have significant dementia (8) Hyperglycemia Conclusion/Plan: Patient is hyperglycemic on presentation with a glucose of 155 which is likely a stress response secondary to her ongoing infection. The patient's hemoglobin A1c was 6.5 which is right on the borderline. We will not start any insulin at this time however the patient's blood glucose does become elevated on her daily labs will consider starting her on a sliding scale insulin. The patient does not have any history of diabetes. BG mildly elevated this am at 130 (9) Hypertension Conclusion/Plan: On metoprolol and diltiazem will consider lisinopril once rate is controlled Qualifiers: Hypertension type: essential hypertension Qualified Code(s): I10 - Essential (primary) hypertension (10) Hypothyroidism Conclusion/Plan: Patient is a history of hypothyroidism and takes Synthroid at home. We will continue her on her home dose of Synthroid. TSH is normal Qualifiers: Hypothyroidism type: unspecified Qualified Code(s): E03.9 - Hypothyroidism , unspecified (11) Hyperlipidemia Conclusion/Plan: Patient has a history of hyperlipidemia and takes atorvastatin at home. We will continue the patient's home dose of atorvastatin. Qualifiers: Hyperlipidemia type: unspecified Qualified Code(s): E78.5 - Hyperlipidemia , unspecified Once patients HR is better controlled with order PT patient will likely need placement at a SNF and will likely need 2-3 more days of hospitalization - Current Meds Current Meds: Current Medications Generic Name Dose Route Start Last Admin Trade Name Freq PRN Reason Stop Dose Admin Acetaminophen 650 mg 04/15/18 16:28 04/16/18 19:35 Tylenol PO 650 mg Q4HR PRN Administration Pain 1 to 4 Atorvastatin Calcium 40 mg 04/15/18 21:00 04/17/18 21:09 Lipitor PO 40 mg QPM REKHA Administration Clotrimazole 1 applic 04/16/18 09:00 04/18/18 14:19 Lotrimin 1% Cream TOP Not Given DAILY REKHA Diltiazem HCl 60 mg 04/18/18 08:34 04/18/18 12:47 Cardizem PO 60 mg Q6HR REKHA Administration Enoxaparin Sodium 40 mg 04/16/18 09:00 04/18/18 09:49 Lovenox SUBQ 40 mg DAILY REKHA Administration Ceftriaxone Sodium 2 gm/ 100 mls @ 200 mls/hr 04/17/18 08:30 04/18/18 10:05 Sodium Chloride IV Infused DAILY REKHA Infusion Levothyroxine Sodium 50 mcg 04/16/18 07:00 04/18/18 06:25 Synthroid PO 50 mcg QDAC REKHA Administration Metoprolol Succinate 50 mg 04/18/18 09:00 04/18/18 09:28 Toprol Xl PO 50 mg DAILY REKHA Administration Metoprolol Tartrate 5 mg 04/16/18 23:57 04/18/18 08:58 Lopressor Inj IVP 5 mg Q6H PRN Administration Hypertensive Emergency Pantoprazole Sodium 40 mg 04/16/18 08:00 04/18/18 06:25 Protonix IVP 40 mg QDAC REKHA Administration Polyethylene Glycol 17 gm 04/16/18 09:00 04/18/18 08:57 Miralax PO Not Given DAILY REKHA Potassium Chloride 10 meq 04/16/18 09:00 04/18/18 08:25 Micro-K PO 10 meq DAILY REKHA Administration Sodium Chloride 10 ml 04/15/18 17:00 04/18/18 10:37 Normal Saline Flush 0.9% IVP Not Given 0100,0900,1700 REKHA Sodium Chloride 10 ml 04/16/18 07:46 04/17/18 06:28 Normal Saline Flush 0.9% IVP 10 ml PRN PRN Administration NEEDED PER PROVIDER ORDERS - Lab Result Lab results reviewed: Yes Fish Bone Diagrams: 04/18/18 05:20 04/18/18 05:20 - Diagnostic Imaging Results Diagnostic Imaging Results: Final report reviewed Diagnostic Imaging Results Comments: Chest Xrays shows pulmonary edema - Additional Planning Condition/Complexity: Guarded My Orders: My Active Orders 04/18/18 08:34 diltiaZEM [Cardizem] 60 mg PO Q6HR 04/18/18 09:00 Metoprolol Succinate [Toprol Xl] 50 mg PO DAILY 04/18/18 21:00 Aspirin EC [Ecotrin] 81 mg PO QPM Mineral Oil/Hydrophil Petrolat [Hydrophor] 1 applic TOP BID 04/19/18 05:00 BNP - B-NATRIURETIC PEPTIDE [IAI] DAILYLAB 04/19/18 06:00 FUROSEMIDE INJ 40mg VIAL [LASIX INJ 40 mg VIAL] 40 mg IVP BIDDIURETIC 04/19/18 08:00 Potassium Chloride [K-Dur] 20 meq PO DAILYWM 04/20/18 05:00 BNP - B-NATRIURETIC PEPTIDE [IAI] DAILYLAB Plan Discussed with:: Patient, Family Time Spent: 31-60 minutes Subjective - Subjective Patient Reports: Cough (non productive), Shortness of Breath (at rest), Other ( No chest pain. COntinues to have pain in left lower extremity) Nursing Reports: No Complaints Objective Vital Signs: Vital Signs - 24 hr 04/17/18 04/17/18 04/17/18 18:00 18:17 19:00 Temperature Heart Rate [ 121 H 130 H Monitoring electrodes] Respiratory 29 H 24 Rate Blood Pressure 111/77 Blood Pressure 111/77 109/79 [Left Brachial artery] Blood Pressure [Right Brachial artery] O2 Saturation 93 94 04/17/18 04/17/18 04/17/18 20:00 21:00 22:00 Temperature 37.1 C Heart Rate [ 134 H 135 H 133 H Monitoring electrodes] Respiratory 27 H 26 H 28 H Rate Blood Pressure Blood Pressure 129/80 117/73 130/89 H [Left Brachial artery] Blood Pressure [Right Brachial artery] O2 Saturation 94 92 91 L 04/17/18 04/18/18 04/18/18 23:00 00:00 00:04 Temperature 36.5 C Heart Rate [ 131 H 131 H Monitoring electrodes] Respiratory 26 H 27 H Rate Blood Pressure 118/77 Blood Pressure 124/74 118/77 [Left Brachial artery] Blood Pressure [Right Brachial artery] O2 Saturation 93 93 04/18/18 04/18/18 04/18/18 01:00 01:19 01:49 Temperature Heart Rate [ 134 H Monitoring electrodes] Respiratory 21 Rate Blood Pressure 125/78 95/63 Blood Pressure 125/78 [Left Brachial artery] Blood Pressure [Right Brachial artery] O2 Saturation 92 04/18/18 04/18/18 04/18/18 02:00 03:00 04:00 Temperature 36.4 C L Heart Rate [ 115 H 113 H 129 H Monitoring electrodes] Respiratory 23 24 22 Rate Blood Pressure Blood Pressure 96/68 104/78 115/82 H [Left Brachial artery] Blood Pressure [Right Brachial artery] O2 Saturation 92 92 92 04/18/18 04/18/18 04/18/18 05:00 06:00 06:25 Temperature Heart Rate [ 131 H 127 H Monitoring electrodes] Respiratory 25 H 25 H Rate Blood Pressure 115/83 H Blood Pressure 93/67 [Left Brachial artery] Blood Pressure 115/83 H [Right Brachial artery] O2 Saturation 100 04/18/18 04/18/18 04/18/18 07:00 08:00 08:58 Temperature Heart Rate [ 128 H 138 H Monitoring electrodes] Respiratory 23 27 H Rate Blood Pressure 115/84 H Blood Pressure [Left Brachial artery] Blood Pressure 108/71 122/75 [Right Brachial artery] O2 Saturation 04/18/18 04/18/18 04/18/18 09:00 09:28 10:00 Temperature 36.0 C L Heart Rate [ 125 H 117 H Monitoring electrodes] Respiratory 26 H 28 H Rate Blood Pressure 120/76 Blood Pressure [Left Brachial artery] Blood Pressure 115/84 H 120/76 [Right Brachial artery] O2 Saturation 95 94 04/18/18 04/18/18 04/18/18 11:00 12:00 12:47 Temperature 36.4 C L Heart Rate [ 115 H 114 H Monitoring electrodes] Respiratory 23 24 Rate Blood Pressure 113/79 Blood Pressure [Left Brachial artery] Blood Pressure 97/77 113/79 [Right Brachial artery] O2 Saturation 95 96 04/18/18 04/18/18 04/18/18 13:00 14:00 15:00 Temperature Heart Rate [ 120 H 114 H 115 H Monitoring electrodes] Respiratory 30 H 25 H 18 Rate Blood Pressure Blood Pressure [Left Brachial artery] Blood Pressure 131/95 H 113/80 114/77 [Right Brachial artery] O2 Saturation 94 95 04/18/18 16:00 Temperature 36.0 C L Heart Rate [ 92 Monitoring electrodes] Respiratory 24 Rate Blood Pressure Blood Pressure [Left Brachial artery] Blood Pressure 95/73 [Right Brachial artery] O2 Saturation 94 Oxygen O2 Source Room air I&O (Last 24 Hrs): Intake and Output Totals x24h 04/16/18 04/17/18 04/18/18 23:59 23:59 23:59 Intake Total 8111.067 4287.766 3596 Output Total 1904 1241 1949 Balance 6207.067 3046.766 1647 General: Alert, Oriented x3, Cooperative, Mild distress (respiratory) HEENT: Atraumatic, PERRLA, EOMI, Mucous membr. moist/pink Neck: Supple, No JVD, No thyromegaly, +2 carotid pulse wo bruit, No LAD Lymphatic: no adenopathy Neuro: Alert, Non Focal, CN 2-12 Grossly Intact, Oriented Times 3 Cardiovascular: Other (Irregular, tachycardic, systolic murmur) Respiratory: Chest non-tender, Rales (bilateral crackles) Abdomen: Normal bowel sounds, Soft, No tenderness, No hepatospenomegaly Extremities: No clubbing, No cyanosis, Normal pulses, Other (LEft lower extremity cellulitis improving slightly) Comments/Notes: Left lower extremity is red and swollen - Results Results: Laboratory Results WBC 11.1 x10^3/uL (4.8-10.8) H 04/18/18 05:20 RBC 3.77 10^6/uL (4.20-5.40) L 04/18/18 05:20 Hgb 11.9 g/dL (12.0-16.0) L 04/18/18 05:20 Hct 35.5 % (37.0-47.0) L 04/18/18 05:20 MCV 94.2 fL (81.0-99.0) 04/18/18 05:20 MCH 31.6 pg (27.0-31.0) H 04/18/18 05:20 MCHC 33.5 g/dL (32.0-36.0) 04/18/18 05:20 RDW 15.0 % (12.0-15.0) 04/18/18 05:20 Plt Count 145 10^3/uL (130-450) 04/18/18 05:20 MPV 9.0 fL (7.9-10.8) 04/18/18 05:20 Neut # (Auto) 9.4 10^3/uL (1.5-6.6) H 04/18/18 05:20 Lymph # (Auto) 0.7 10^3/uL (1.5-3.5) L 04/18/18 05:20 Tripp # (Auto) 0.8 10^3/uL (0.0-1.0) 04/18/18 05:20 Eos # (Auto) 0.1 10^3/uL (0.0-0.7) 04/18/18 05:20 Baso # (Auto) 0.0 10^3/uL (0.0-0.1) 04/18/18 05:20 Absolute Nucleated RBC 0.01 x10^3/uL 04/18/18 05:20 Total Counted 100 04/17/18 03:05 Band Neuts % (Manual) 5 % (0-10) 04/17/18 03:05 Abnorm Lymph % (Manual) 0 % 04/17/18 03:05 Nucleated RBC % 0.1 /100WBC 04/18/18 05:20 Neutrophils # (Manual) 12.6 10^3/uL (1.5-6.6) H 04/17/18 03:05 Lymphocytes # (Manual) 1.0 10^3/uL (1.5-3.5) L 04/17/18 03:05 Monocytes # (Manual) 0.7 10^3/uL (0.0-1.0) 04/17/18 03:05 Eosinophils # (Manual) 0.1 10^3/uL (0-0.7) 04/17/18 03:05 Basophils # (Manual) 0.0 10^3/uL (0-0.1) 04/17/18 03:05 Differential Comment MANUAL DIFFERENTIAL 04/17/18 03:05 Manual Slide Review Indicated 04/15/18 13:09 WBC Morphology 2+ VACUOLA (NORMAL) 04/15/18 13:09 Platelet Estimate DECREASED (<130,000) (NORMAL) 04/17/18 03:05 Platelet Morphology NORMAL APPEARANCE (NORMAL) 04/15/18 13:09 RBC Morph Micro Appear NORMAL APPEARANCE (NORMAL) 04/17/18 03:05 VBG pH 7.332 (7.31-7.41) 04/18/18 05:20 Ionized Calcium 1.00 mmol/L (1.15-1.33) L 04/18/18 05:20 Sodium 132 mmol/L (135-145) L 04/18/18 05:20 Potassium 3.3 mmol/L (3.5-5.0) L 04/18/18 05:20 Chloride 106 mmol/L (101-111) 04/18/18 05:20 Carbon Dioxide 17 mmol/L (21-32) L 04/18/18 05:20 Anion Gap 9.0 (6-13) 04/18/18 05:20 BUN 25 mg/dL (6-20) H 04/18/18 05:20 Creatinine 0.9 mg/dL (0.4-1.0) 04/18/18 05:20 Estimated GFR (MDRD) 59 (>89) L 04/18/18 05:20 Glucose 130 mg/dL (70-100) H 04/18/18 05:20 Glycated Hemoglobin 6.5 % (4.6-6.2) H 04/15/18 16:49 Estim Average Glucose 140 (70-100) H 04/15/18 16:49 Lactic Acid 1.7 mmol/L (0.5-2.2) 04/16/18 06:33 Calcium 6.8 mg/dL (8.5-10.3) L 04/18/18 05:20 Ionized Calcium YES 04/18/18 05:20 Phosphorus 2.1 mg/dL (2.5-4.6) L 04/18/18 05:20 Magnesium 2.0 mg/dL (1.7-2.8) 04/18/18 05:20 Total Bilirubin 0.7 mg/dL (0.2-1.0) 04/18/18 05:20 AST 100 IU/L (10-42) H 04/18/18 05:20 ALT 70 IU/L (10-60) H 04/18/18 05:20 Alkaline Phosphatase 61 IU/L (42-121) 04/18/18 05:20 Troponin I 0.46 ng/mL (<0.49) 04/16/18 03:10 B-Natriuretic Peptide 446 pg/mL (5-100) H 04/18/18 05:20 Total Protein 5.4 g/dL (6.7-8.2) L 04/18/18 05:20 Albumin 2.0 g/dL (3.2-5.5) L 04/18/18 05:20 Globulin 3.4 g/dL (2.1-4.2) 04/18/18 05:20 Albumin/Globulin Ratio 0.6 (1.0-2.2) L 04/18/18 05:20 Lipase 22 U/L (22-51) 04/15/18 13:09 TSH 2.90 uIU/mL (0.34-5.60) 04/16/18 03:10 Urine Color YELLOW 04/15/18 13:04 Urine Clarity CLEAR (CLEAR) 04/15/18 13:04 Urine pH 6.0 PH (5.0-7.5) 04/15/18 13:04 Ur Specific Abrams 1.025 (1.002-1.030) 04/15/18 13:04 Urine Protein 100 mg/dL (NEGATIVE) H 04/15/18 13:04 Urine Glucose (UA) NEGATIVE mg/dL (NEGATIVE) 04/15/18 13:04 Urine Ketones TRACE mg/dL (NEGATIVE) 04/15/18 13:04 Urine Occult Blood LARGE (NEGATIVE) H 04/15/18 13:04 Urine Nitrite NEGATIVE (NEGATIVE) 04/15/18 13:04 Urine Bilirubin NEGATIVE (NEGATIVE) 04/15/18 13:04 Urine Urobilinogen 0.2 (NORMAL) E.U./dL (NORMAL) 04/15/18 13:04 Ur Leukocyte Esterase NEGATIVE (NEGATIVE) 04/15/18 13:04 Urine RBC 0-5 /HPF (0-5) 04/15/18 13:04 Urine WBC 0-3 /HPF (0-5) 04/15/18 13:04 Ur Squamous Epith Cells MOD Squamous (<= Few) H 04/15/18 13:04 Urine Bacteria Few /HPF (None Seen) 04/15/18 13:04 Urine Mucus Few Strands 04/15/18 13:04 Ur Microscopic Review INDICATED 04/15/18 13:04 Urine Culture Comments NOT INDICATED 04/15/18 13:04 ABX Reporting Has patient been on IV antibiotics over the past 48 hours?: Yes Current Medications - Current Medications Current Medications: Active Medications Generic Name Dose Route Start Last Admin Trade Name Srikanthq PRN Reason Stop Dose Admin Acetaminophen 650 mg 04/15/18 16:28 04/16/18 19:35 Tylenol PO 650 mg Q4HR PRN Administration Pain 1 to 4 Aspirin 81 mg 04/18/18 21:00 Ecotrin PO QPM REKHA Atorvastatin Calcium 40 mg 04/15/18 21:00 04/17/18 21:09 Lipitor PO 40 mg QPM REKHA Administration Clotrimazole 1 applic 04/16/18 09:00 04/18/18 14:19 Lotrimin 1% Cream TOP Not Given DAILY REKHA Diltiazem HCl 60 mg 04/18/18 08:34 04/18/18 12:47 Cardizem PO 60 mg Q6HR REKHA Administration Emollient Ointment 1 applic 04/18/18 21:00 Hydrophor TOP BID REKHA Enoxaparin Sodium 40 mg 04/16/18 09:00 04/18/18 09:49 Lovenox SUBQ 40 mg DAILY REKHA Administration Furosemide 40 mg 04/19/18 06:00 Lasix Inj 40 Mg Vial IVP BIDDIURETIC [facility] Ceftriaxone Sodium 2 gm/ 100 mls @ 200 mls/hr 04/17/18 08:30 04/18/18 10:05 Sodium Chloride IV Infused DAILY [facility]1983 Infusion Levothyroxine Sodium 50 mcg 04/16/18 07:00 04/18/18 06:25 Synthroid PO 50 mcg QDAC [facility]1983 Administration Metoprolol Succinate 50 mg 04/18/18 09:00 04/18/18 09:28 Toprol Xl PO 04/19/18 09:00 50 mg DAILY [facility] Administration Metoprolol Succinate 100 mg 04/19/18 09:00 Toprol Xl PO DAILY [facility]1983 Metoprolol Tartrate 5 mg 04/16/18 23:57 04/18/18 08:58 Lopressor Inj IVP 5 mg Q6H PRN Administration Hypertensive Emergency Morphine Sulfate 2 mg 04/15/18 16:28 Morphine IVP Q2H PRN Pain 8 to 10 Ondansetron HCl 4 mg 04/15/18 16:28 Zofran Inj IVP Q6HR PRN Nausea / Vomiting Oxycodone HCl 5 mg 04/15/18 16:28 Roxicodone PO Q4HR PRN Pain 5 to 7 Oxycodone HCl 10 mg 04/15/18 16:28 Roxicodone PO Q4HR PRN Pain 8 to 10 Pantoprazole Sodium 40 mg 04/16/18 08:00 04/18/18 06:25 Protonix IVP 40 mg QDAC [facility] Administration Polyethylene Glycol 17 gm 04/16/18 09:00 04/18/18 08:57 Miralax PO Not Given DAILY [facility] Potassium Chloride 10 meq 04/16/18 09:00 04/18/18 08:25 Micro-K PO 10 meq DAILY [facility] Administration Potassium Chloride 20 meq 04/19/18 08:00 K-Dur PO DAILYWM [facility] Prochlorperazine Edisylate 10 mg 04/15/18 16:28 Compazine Inj IVP Q6HR PRN Nausea / Vomiting Promethazine HCl 25 mg 04/15/18 16:28 Phenergan Inj IM Q6HR PRN Nausea / Vomiting Sodium Chloride 10 ml 04/15/18 17:00 04/18/18 10:37 Normal Saline Flush 0.9% IVP Not Given 0100,0900,1700 REKHA Sodium Chloride 10 ml 04/16/18 07:46 04/17/18 06:28 Normal Saline Flush 0.9% IVP 10 ml PRN PRN Administration NEEDED PER PROVIDER ORDERS Zolpidem Tartrate 5 mg 04/15/18 16:28 Ambien PO QPM PRN Insomnia Aspirin [Aspirin EC] 81 mg PO DAILY 04/15/18 Atorvastatin Calcium 40 mg PO QPM 04/15/18 Clotrimazole [Clotrimazole AF] 1 applic TOP DAILY 04/15/18 Levothyroxine Sodium 50 mcg PO QDAC 04/15/18 Metoprolol Succinate 50 mg PO DAILY 04/15/18 Potassium Chloride 10 meq PO DAILY 04/15/18
[2018-04-18] MEDS: MINERAL OIL/HYDROPHIL PETROLAT 454 GM JAR TOP SCH (18:12)
[2018-04-18] MEDS ORDERED: POTASSIUM CHLORIDE 20 MEQ TABLET PO ONE (19:32)
[2018-04-18] MEDS: ACETAMINOPHEN 325 MG TABLET PO PRN (19:55)
[2018-04-18] MEDS: ATORVASTATIN 40 MG TABLET PO SCH (21:11)
[2018-04-19] MEDS: diltiaZEM 30 MG TABLET PO SCH ×3 (00:22→12:50)
[2018-04-19] MEDS: SODIUM CHLORIDE FLUSH 0.9% 10 ML SYRINGE IVP SCH ×3 (00:22→17:17)
[2018-04-19 04:52] LABS: BASOPHILS # (AUTO) 0.1 10^3/uL (0.0-0.1); BASOPHILS % (AUTO) 0.5 %; EOSINOPHILS # (AUTO) 0.1 10^3/uL (0.0-0.7); EOSINOPHILS % (AUTO) 1.1 %; HGB - HEMOGLOBIN 12.1 g/dL (12.0-16.0); LYMPHOCYTES # (AUTO) 1.2 10^3/uL (1.5-3.5); LYMPHOCYTES % (AUTO) 9.2 %; MEAN CORPUSCULAR HEMOGLOBIN 32.2 pg (27.0-31.0); MEAN CORPUSCULAR HGB CONC 34.8 g/dL (32.0-36.0); MEAN CORPUSCULAR VOLUME 92.6 fL (81.0-99.0); MEAN PLATELET VOLUME 9.5 fL (7.9-10.8); MONOCYTES # (AUTO) 1.1 10^3/uL (0.0-1.0); MONOCYTES % (AUTO) 8.3 %; NEUTROPHILS # (AUTO) 10.9 10^3/uL (1.5-6.6); NEUTROPHILS % (AUTO) 80.9 %; PLT - PLATELET COUNT 157 10^3/uL (130-450); RED BLOOD COUNT 3.74 10^6/uL (4.20-5.40); RED CELL DISTRIBUTION WIDTH 15.2 % (12.0-15.0); WHITE BLOOD COUNT 13.5 x10^3/uL (4.8-10.8)
[2018-04-19 05:01] LABS: ALBUMIN 2.1 g/dL (3.2-5.5); ALBUMIN/GLOBULIN RATIO 0.7 (1.0-2.2); ALKALINE PHOSPHATASE 65 IU/L (42-121); ALT ALANINE AMINOTRANSFERASE 56 IU/L (10-60); AST ASPARTATE AMINOTRANSFERASE 58 IU/L (10-42); BILIRUBIN,TOTAL 0.8 mg/dL (0.2-1.0); BUN - BLOOD UREA NITROGEN 29 mg/dL (6-20); CALCIUM 7.3 mg/dL (8.5-10.3); CARBON DIOXIDE - CO2 15 mmol/L (21-32); CHLORIDE 111 mmol/L (101-111); GFR - MDRD 52 (>89); GLUCOSE 120 mg/dL (70-100); MAGNESIUM 2.2 mg/dL (1.7-2.8); PHOSPHORUS 2.5 mg/dL (2.5-4.6); SODIUM 133 mmol/L (135-145); TOTAL PROTEIN 5.3 g/dL (6.7-8.2)
[2018-04-19 05:14] LABS: VBG PH 7.455 (7.31-7.41)
[2018-04-19] MEDS ORDERED: POTASSIUM CHLORIDE 20 MEQ TABLET PO ONE (06:00)
[2018-04-19] MEDS ORDERED: FUROSEMIDE 40 MG/4 ML VIAL IVP SCH (06:00)
[2018-04-19] MEDS: LEVOTHYROXINE 25 MCG TABLET PO SCH (06:06)
[2018-04-19] MEDS: PANTOPRAZOLE 40 MG VIAL IVP SCH (06:07)
[2018-04-19] MEDS: ACETAMINOPHEN 325 MG TABLET PO PRN ×2 (06:07→20:48)
[2018-04-19] MEDS: cefTRIAXone 2 GM in SODIUM CHLORIDE 0.9% MINIBAG 100 ML IV SCH (08:45)
[2018-04-19] MEDS: METOPROLOL SUCCINATE 50 MG TABLET PO SCH (08:51)
[2018-04-19] MEDS: POTASSIUM CHLORIDE 20 MEQ TABLET PO SCH (08:51)
[2018-04-19] MEDS: POLYETHYLENE GLYCOL 3350 17 GM PACKET PO SCH (08:52)
[2018-04-19] MEDS: POTASSIUM CHLORIDE 10 MEQ CAPSULE PO SCH (08:57)
[2018-04-19] MEDS: MINERAL OIL/HYDROPHIL PETROLAT 454 GM JAR TOP SCH ×2 (10:58→20:49)
[2018-04-19] MEDS: ENOXAPARIN 40 MG/0.4 ML SYRINGE SUBQ SCH (10:58)
[2018-04-19] MEDS: CLOTRIMAZOLE 1% CREAM 15 GM TUBE TOP SCH (11:37)
[2018-04-19] MEDS ORDERED: SODIUM CHLORIDE 0.9% 500 ML IV ONE (11:53)
[2018-04-19 12:16] LABS: EOSINOPHILS # (AUTO) 0.1 10^3/uL (0.0-0.7); EOSINOPHILS % (AUTO) 0.8 %; HGB - HEMOGLOBIN 12.4 g/dL (12.0-16.0); LYMPHOCYTES # (AUTO) 0.9 10^3/uL (1.5-3.5); LYMPHOCYTES % (AUTO) 6.2 %; MEAN CORPUSCULAR HEMOGLOBIN 31.9 pg (27.0-31.0); MEAN CORPUSCULAR HGB CONC 34.3 g/dL (32.0-36.0); MEAN PLATELET VOLUME 9.7 fL (7.9-10.8); MONOCYTES # (AUTO) 0.9 10^3/uL (0.0-1.0); MONOCYTES % (AUTO) 6.2 %; NEUTROPHILS # (AUTO) 12.7 10^3/uL (1.5-6.6); NEUTROPHILS % (AUTO) 86.8 %; PLT - PLATELET COUNT 168 10^3/uL (130-450); RED BLOOD COUNT 3.88 10^6/uL (4.20-5.40); RED CELL DISTRIBUTION WIDTH 15.1 % (12.0-15.0); WHITE BLOOD COUNT 14.7 x10^3/uL (4.8-10.8)
[2018-04-19 12:31] LABS: RBC MORPHOLOGY (MULTIPLE) 2+ ANISOCYTOSIS (NORMAL)
[2018-04-19] MEDS ORDERED: SODIUM CHLORIDE FLUSH 0.9% 10 ML SYRINGE IVP PRN (12:42)
[2018-04-19] MEDS ORDERED: VANCOMYCIN PER PHARMACY 1 GM in SODIUM CHLORIDE 0.9% 250 ML IV SCH (13:00)
[2018-04-19] MEDS ORDERED: SODIUM CHLORIDE 0.9% 1,000 ML IV SCH (13:00)
[2018-04-19] MEDS: SACCHAROMYCES BOULARDII 250 MG CAPSULE PO SCH ×2 (13:14→17:17)
[2018-04-19] MEDS: VANCOMYCIN INJ 1.5 GM in SODIUM CHLORIDE 0.9% 500 ML IV SCH (14:03)
--- NOTE | 2018-04-19 16:48 | PROVIDER PROGRESS NOTE ---
Assessment/Plan - Problem List (1) Septic shock Assessment/Plan: Patient presented with fever, tachycardia, leukocytosis and bandemia. She had an elevated lactic acid of 4.0. The patient did have a mild elevation in her creatinine up to 1.1 from 0.7 and mild elevation in her troponin up to 0.43. The patient appeared to have severe sepsis with endorgan damage. The patient also had metabolic encephalopathy as she was confused. The patient underwent extensive workup for source of infection and was found to have a left lower extremity cellulitis as the likely source of her sepsis. Blood cultures were positive with group G strep likely source being the left leg cellulitis on 04/15/18 and are again positive on 04/16/18 On 04/16/18 morning patient was hypotensive despite several IV fluid boluses patient remained hypotensive with SBP in 70 Worsening leukocytosis and fever of 38.8 also on 04/16/18 Transferred to ICU and placed on levophed on 04/16/18 Lactic acid initially increased to 4.2 then improved to normal Off levophed now and maintaining her BP Today patient appeared to be improving in the morning and order was placed to move to med/surg but worsened in the early afternoon. She became increasingly lethargic and repeat labs showed worsening leukocytosis, patient became hypotensive with elevated lactic acid. Plan: Change ceftriaxone back to vancomycin as patient appears to be worsening and had been improving with vanco Restart IVFs Repeat blood cx given decline Monitor closely transfer back to ICU (2) Bacteremia Conclusion/Plan: Group G Strep Likely source is left lower extremity cellulitis Echo negative for endocarditis X ray of ankle negative for effusion Plan: Repeat blood cultures negative but given decline today will repeat again Switch ceftriaxone back to vancomycin given patients decline (3) Cellulitis of left leg Conclusion/Plan: Patient presented with left lower extremity pain on exam she appears to have a swollen, tender, warm and red left lower extremity that appears to be infected. The patient likely has cellulitis as the source of her severe sepsis. Given that the patient does have septic shock we will use broad-spectrum IV antibiotics. Patient has bacteremia with group g strep and likely source is cellulitis Xray of left ankle negative for effusion Swelling and redness was improving early but swelling is worse this afternoon Plan: Change ceftriaxone back to vancomycin given patients decline today Repeat blood cx despite negative repeat cultures as patient worsening (4) Atrial fibrillation with RVR Conclusion/Plan: The patient presented with tachycardia which initially appeared to be sinus tachycardia with a heart rate of 142. On arrival to the medical poe the patient continued to be tachycardic with heart rate up to the 150s. The patient was given 2 doses of diltiazem in the emergency department which did seem to slow her heart rate down. The patient's EKG appears to show a right bundle branch block but it is difficult to assess if the patient has sinus rhythm or atrial fibrillation on her monitor it does appear she has atrial fibrillation. The patient does not herself know about a history of atrial fibrillation but looking back at a EMS note from 08/2017 the patient did have tachycardia at that time with a heart rate in the 180s but declined to come to the hospital. It appears the patient likely does have A. fib with RVR and will be treated as such. Patient continues to have HR of 150s this am and secondary to septic shock metoprolol stopped this am Echocardiogram shows reduced EF of 40% Telemetry monitoring shows atrial flutter/fib Patient HR better today but still going up to 120s Plan: Continue metoprolol 100 mg Held dilt today for hypotension will start Diltiazem 180 mg in the am if patient can tolerate Continue IV metoprolol as needed Stopped amiodarone as patient did not convert to SR and did not seem to improve HR Tele Will talk to patient about anticoagulation once improved (5) Systolic Heart Failure NYHA class I Conclusion/Plan: Echocardiogram showed no wall motion abnormalities but did show a reduced EF of 40% Had pulmonary edema which improved with lasix but patient now hypotensive will stop lasix and give IVFs Continue metoprolol Start lisinopril once patient able to tolerate (6) Acute kidney injury Conclusion/Plan: The patient's baseline creatinine is 0.7 and on presentation it is elevated to 1.1 with an elevated BUN of 23. The patient does appear to be dry on examination and does have severe sepsis with likely acute kidney injury due to prerenal azotemia. Continue IVFs We will avoid nephrotoxic agents We will monitor patient's creatinine Improved to 1.0 (7) Metabolic encephalopathy Conclusion/Plan: On presentation to the emergency department the patient was quite confused and although she does appear to have some underlying dementia it is difficult to know how much of her confusion is acute but given that she has severe sepsis it is likely that there is some component of metabolic encephalopathy. Worsening today as patient is lethargic likely secondary to worsening infection and diarrhea (8) Hyperglycemia Conclusion/Plan: Patient is hyperglycemic on presentation with a glucose of 155 which is likely a stress response secondary to her ongoing infection. The patient's hemoglobin A1c was 6.5 which is right on the borderline. We will not start any insulin at this time however the patient's blood glucose does become elevated on her daily labs will consider starting her on a sliding scale insulin. The patient does not have any history of diabetes. BG mildly elevated this am at 120 Improving (9) Hypertension Conclusion/Plan: Hypotensive this afternoon likely secondary to lasix and diarrhea Will hold lasix and diltiazem Continue metoprolol if able to tolerate Qualifiers: Hypertension type: essential hypertension Qualified Code(s): I10 - Essential (primary) hypertension (10) Hypothyroidism Conclusion/Plan: Patient is a history of hypothyroidism and takes Synthroid at home. We will continue her on her home dose of Synthroid. TSH is normal Qualifiers: Hypothyroidism type: unspecified Qualified Code(s): E03.9 - Hypothyroidism , unspecified (11) Hyperlipidemia Conclusion/Plan: Patient has a history of hyperlipidemia and takes atorvastatin at home. We will continue the patient's home dose of atorvastatin. Qualifiers: Hyperlipidemia type: unspecified Qualified Code(s): E78.5 - Hyperlipidemia , unspecified (12) Diarrhea Conclusion/Plan: Likely secondary to antibiotics Patient becoming hypotensive Stop lasix and diltiazem Start IVFs Start probiotic Change abx from ceftriaxone to vancomycin Consider stool cx and testing for C. Diff if diarrhea continues and WBC continues to go up - Current Meds Current Meds: Current Medications Generic Name Dose Route Start Last Admin Trade Name Abilio PRN Reason Stop Dose Admin Acetaminophen 650 mg 04/15/18 16:28 04/19/18 06:07 Tylenol PO 650 mg Q4HR PRN Administration Pain 1 to 4 Aspirin 81 mg 04/18/18 21:00 04/18/18 21:11 Ecotrin PO 81 mg QPM REKHA Administration Atorvastatin Calcium 40 mg 04/15/18 21:00 04/18/18 21:11 Lipitor PO 40 mg QPM REKHA Administration Clotrimazole 1 applic 04/16/18 09:00 04/19/18 11:37 Lotrimin 1% Cream TOP 1 applic DAILY REKHA Administration Emollient Ointment 1 applic 04/18/18 21:00 04/19/18 10:58 Hydrophor TOP 1 applic BID REKHA Administration Enoxaparin Sodium 40 mg 04/16/18 09:00 04/19/18 10:58 Lovenox SUBQ 40 mg DAILY REKHA Administration Vancomycin HCl 1.5 gm/ Sodium 500 mls @ 335 mls/hr 04/19/18 14:00 04/19/18 16 :01 Chloride IV Infused Q24H REKHA Infusion Levothyroxine Sodium 50 mcg 04/16/18 07:00 04/19/18 06:06 Synthroid PO 50 mcg QDAC REKHA Administration Metoprolol Succinate 100 mg 04/19/18 09:00 04/19/18 08:51 Toprol Xl PO 100 mg DAILY REKHA Administration Metoprolol Tartrate 5 mg 04/16/18 23:57 04/18/18 08:58 Lopressor Inj IVP 5 mg Q6H PRN Administration Hypertensive Emergency Pantoprazole Sodium 40 mg 04/16/18 08:00 04/19/18 06:07 Protonix IVP 40 mg QDAC REKHA Administration Polyethylene Glycol 17 gm 04/16/18 09:00 04/19/18 08:52 Miralax PO Not Given DAILY REKHA Potassium Chloride 10 meq 04/16/18 09:00 04/19/18 08:57 Micro-K PO Not Given DAILY REKHA Potassium Chloride 20 meq 04/19/18 08:00 04/19/18 08:51 K-Dur PO 20 meq DAILYWM REKHA Administration Saccharomyces Boulardii 250 mg 04/19/18 13:00 04/19/18 13:14 Florastor PO 250 mg BIDWM REKHA Administration Sodium Chloride 10 ml 04/15/18 17:00 04/19/18 08:57 Normal Saline Flush 0.9% IVP 10 ml 0100,0900,1700 REKHA Administration Sodium Chloride 10 ml 04/16/18 07:46 04/17/18 06:28 Normal Saline Flush 0.9% IVP 10 ml PRN PRN Administration NEEDED PER PROVIDER ORDERS - Lab Result Lab results reviewed: Yes Fish Bone Diagrams: 04/19/18 12:04 04/19/18 04:15 - Additional Planning Condition/Complexity: Critical My Orders: My Active Orders 04/18/18 21:00 Aspirin EC [Ecotrin] 81 mg PO QPM Mineral Oil/Hydrophil Petrolat [Hydrophor] 1 applic TOP BID 04/19/18 Evaluate and Treat PT [PT] Routine 04/19/18 08:00 Potassium Chloride [K-Dur] 20 meq PO DAILYWM 04/19/18 09:00 Metoprolol Succinate [Toprol Xl] 100 mg PO DAILY 04/19/18 12:43 Initiate ICU Electrolyte Prot. [RC] .protocol Vital Signs [RC] Q1HR 04/19/18 12:55 CULTURE, BLOOD #1 [RM] Routine 04/19/18 13:00 Saccharomyces Boulardii [Florastor] 250 mg PO BIDWM 04/19/18 13:34 CULTURE, BLOOD #2 [RM] Routine 04/19/18 14:00 Vancomycin Inj [Vancomycin] 1.5 gm Sodium Chloride 0.9% [Normal Saline 0.9%] 500 ml IV Q24H 04/19/18 16:04 LACTIC ACID, VENOUS [CHEM] Timed 04/20/18 05:00 BNP - B-NATRIURETIC PEPTIDE [IAI] DAILYLAB 04/20/18 09:00 diltiaZEM CD [Cardizem Cd] 180 mg PO DAILY 04/22/18 13:30 VANCOMYCIN TROUGH [CHEM] Timed Consult/Specialty: PT Plan Discussed with:: Patient, Family Time Spent: Greater than 60 minutes Subjective - Subjective Patient Reports: Diarrhea (watery), Other (Lethargic, weak, hypotensive, no fevers, Left leg swelling worse) Nursing Reports: Sedated Objective Vital Signs: Vital Signs - 24 hr 04/18/18 04/18/18 04/18/18 17:00 18:00 18:19 Temperature Heart Rate [ 102 H 98 Monitoring electrodes] Heart Rate [ Sitting] Heart Rate [ Supine] Respiratory 25 H 25 H Rate Respiratory Rate [Without Activity] Blood Pressure 110/77 Blood Pressure 95/76 110/77 [Right Brachial artery] Blood Pressure [Sitting] Blood Pressure [Supine] O2 Saturation 94 94 O2 Saturation [ Without Activity] 04/18/18 04/18/18 04/18/18 19:00 20:00 21:00 Temperature 36.9 C Heart Rate [ 96 87 89 Monitoring electrodes] Heart Rate [ Sitting] Heart Rate [ Supine] Respiratory 22 22 22 Rate Respiratory Rate [Without Activity] Blood Pressure Blood Pressure 95/69 115/85 H 83/54 L [Right Brachial artery] Blood Pressure [Sitting] Blood Pressure [Supine] O2 Saturation 94 100 100 O2 Saturation [ Without Activity] 04/18/18 04/18/18 04/18/18 21:08 22:00 23:00 Temperature Heart Rate [ 95 102 H Monitoring electrodes] Heart Rate [ Sitting] Heart Rate [ Supine] Respiratory 25 H 25 H Rate Respiratory Rate [Without Activity] Blood Pressure Blood Pressure 100/59 L 81/59 L 89/65 L [Right Brachial artery] Blood Pressure [Sitting] Blood Pressure [Supine] O2 Saturation 100 100 O2 Saturation [ Without Activity] 04/19/18 04/19/18 04/19/18 00:00 00:22 01:00 Temperature 36.4 C L Heart Rate [ 102 H 105 H Monitoring electrodes] Heart Rate [ Sitting] Heart Rate [ Supine] Respiratory 23 21 Rate Respiratory Rate [Without Activity] Blood Pressure 102/65 Blood Pressure 102/65 99/71 [Right Brachial artery] Blood Pressure [Sitting] Blood Pressure [Supine] O2 Saturation 100 100 O2 Saturation [ Without Activity] 04/19/18 04/19/18 04/19/18 02:00 03:00 04:00 Temperature Heart Rate [ 87 103 H 105 H Monitoring electrodes] Heart Rate [ Sitting] Heart Rate [ Supine] Respiratory 27 H 27 H 17 Rate Respiratory Rate [Without Activity] Blood Pressure Blood Pressure 92/63 89/70 L 106/76 [Right Brachial artery] Blood Pressure [Sitting] Blood Pressure [Supine] O2 Saturation 100 100 100 O2 Saturation [ Without Activity] 04/19/18 04/19/18 04/19/18 05:00 06:00 06:06 Temperature 36.6 C Heart Rate [ 99 111 H Monitoring electrodes] Heart Rate [ Sitting] Heart Rate [ Supine] Respiratory 22 20 Rate Respiratory Rate [Without Activity] Blood Pressure 98/78 Blood Pressure 96/72 98/78 [Right Brachial artery] Blood Pressure [Sitting] Blood Pressure [Supine] O2 Saturation 100 100 O2 Saturation [ Without Activity] 04/19/18 04/19/18 04/19/18 07:00 07:58 08:00 Temperature 36.3 C L Heart Rate [ 107 H 104 H 110 H Monitoring electrodes] Heart Rate [ Sitting] Heart Rate [ Supine] Respiratory 18 20 22 Rate Respiratory Rate [Without Activity] Blood Pressure Blood Pressure 104/73 104/56 L 98/79 [Right Brachial artery] Blood Pressure [Sitting] Blood Pressure [Supine] O2 Saturation 100 96 100 O2 Saturation [ Without Activity] 04/19/18 04/19/18 04/19/18 09:00 09:50 11:25 Temperature Heart Rate [ 107 H 104 H Monitoring electrodes] Heart Rate [ 100 Sitting] Heart Rate [ 95 Supine] Respiratory 17 Rate Respiratory 22 Rate [Without Activity] Blood Pressure Blood Pressure 111/61 83/68 L [Right Brachial artery] Blood Pressure 117/89 H [Sitting] Blood Pressure 111/61 [Supine] O2 Saturation O2 Saturation [ 100 Without Activity] 04/19/18 04/19/18 04/19/18 11:30 11:46 12:23 Temperature Heart Rate [ 98 103 H 98 Monitoring electrodes] Heart Rate [ Sitting] Heart Rate [ Supine] Respiratory 20 Rate Respiratory Rate [Without Activity] Blood Pressure Blood Pressure 80/60 L 83/57 L 95/67 [Right Brachial artery] Blood Pressure [Sitting] Blood Pressure [Supine] O2 Saturation 100 O2 Saturation [ Without Activity] 04/19/18 04/19/18 04/19/18 12:50 12:51 12:58 Temperature Heart Rate [ Monitoring electrodes] Heart Rate [ Sitting] Heart Rate [ Supine] Respiratory Rate Respiratory Rate [Without Activity] Blood Pressure 80/65 L Blood Pressure 80/65 L 80/65 L [Right Brachial artery] Blood Pressure [Sitting] Blood Pressure [Supine] O2 Saturation O2 Saturation [ Without Activity] 04/19/18 04/19/18 04/19/18 12:59 13:00 14:00 Temperature 36.2 C L Heart Rate [ 102 H 100 94 Monitoring electrodes] Heart Rate [ Sitting] Heart Rate [ Supine] Respiratory 20 20 18 Rate Respiratory Rate [Without Activity] Blood Pressure Blood Pressure 85/71 L 92/73 101/78 [Right Brachial artery] Blood Pressure [Sitting] Blood Pressure [Supine] O2 Saturation 100 100 O2 Saturation [ Without Activity] 04/19/18 04/19/18 15:00 16:00 Temperature Heart Rate [ 98 104 H Monitoring electrodes] Heart Rate [ Sitting] Heart Rate [ Supine] Respiratory 21 22 Rate Respiratory Rate [Without Activity] Blood Pressure Blood Pressure 95/63 103/66 [Right Brachial artery] Blood Pressure [Sitting] Blood Pressure [Supine] O2 Saturation 100 O2 Saturation [ Without Activity] Oxygen O2 Source [Without Activity] Room air O2 Source Room air I&O (Last 24 Hrs): Intake and Output Totals x24h 04/17/18 04/18/18 04/19/18 23:59 23:59 23:59 Intake Total 4287.766 4376 2006.667 Output Total 1241 2214 1205 Balance 3046.766 2162 801.667 General: Other (Lethargic, weak) HEENT: Atraumatic, PERRLA, EOMI, Other (Dry mucus membranes) Neck: Supple, No JVD, No thyromegaly, +2 carotid pulse wo bruit, No LAD Lymphatic: no adenopathy Neuro: Non Focal, CN 2-12 Grossly Intact, Oriented Times 3 (when alert), Other ( lethargic) Cardiovascular: Other (Irregularily irregular, tachycardic, systolic mumur) Respiratory: Chest non-tender, No respiratory distress, Breath sounds nml Abdomen: Normal bowel sounds, Soft, No tenderness, No hepatospenomegaly Extremities: No clubbing, No cyanosis, Normal pulses, Other (Left lower extremity is red, swollen and tenderr) Comments/Notes: Left lower extremity red, swollen and tender - Results Results: Laboratory Results WBC 14.7 x10^3/uL (4.8-10.8) H 04/19/18 12:04 RBC 3.88 10^6/uL (4.20-5.40) L 04/19/18 12:04 Hgb 12.4 g/dL (12.0-16.0) 04/19/18 12:04 Hct 36.1 % (37.0-47.0) L 04/19/18 12:04 MCV 93.0 fL (81.0-99.0) 04/19/18 12:04 MCH 31.9 pg (27.0-31.0) H 04/19/18 12:04 MCHC 34.3 g/dL (32.0-36.0) 04/19/18 12:04 RDW 15.1 % (12.0-15.0) H 04/19/18 12:04 Plt Count 168 10^3/uL (130-450) 04/19/18 12:04 MPV 9.7 fL (7.9-10.8) 04/19/18 12:04 Neut # (Auto) 12.7 10^3/uL (1.5-6.6) H 04/19/18 12:04 Lymph # (Auto) 0.9 10^3/uL (1.5-3.5) L 04/19/18 12:04 Benson # (Auto) 0.9 10^3/uL (0.0-1.0) 04/19/18 12:04 Eos # (Auto) 0.1 10^3/uL (0.0-0.7) 04/19/18 12:04 Baso # (Auto) 0.0 10^3/uL (0.0-0.1) 04/19/18 12:04 Absolute Nucleated RBC 0.05 x10^3/uL 04/19/18 12:04 Total Counted 100 04/17/18 03:05 Band Neuts % (Manual) 5 % (0-10) 04/17/18 03:05 Abnorm Lymph % (Manual) 0 % 04/17/18 03:05 Nucleated RBC % 0.4 /100WBC 04/19/18 12:04 Neutrophils # (Manual) 12.6 10^3/uL (1.5-6.6) H 04/17/18 03:05 Lymphocytes # (Manual) 1.0 10^3/uL (1.5-3.5) L 04/17/18 03:05 Monocytes # (Manual) 0.7 10^3/uL (0.0-1.0) 04/17/18 03:05 Eosinophils # (Manual) 0.1 10^3/uL (0-0.7) 04/17/18 03:05 Basophils # (Manual) 0.0 10^3/uL (0-0.1) 04/17/18 03:05 Differential Comment MANUAL DIFFERENTIAL 04/17/18 03:05 Manual Slide Review Indicated 04/19/18 12:04 WBC Morphology 2+ VACUOLA (NORMAL) 04/15/18 13:09 Platelet Estimate DECREASED (<130,000) (NORMAL) 04/17/18 03:05 Platelet Morphology NORMAL APPEARANCE (NORMAL) 04/15/18 13:09 RBC Morph Micro Appear 2+ ANISOCYTOSIS (NORMAL) 04/19/18 12:04 VBG pH 7.455 (7.31-7.41) H 04/19/18 04:15 Ionized Calcium 1.04 mmol/L (1.15-1.33) L 04/19/18 04:15 Sodium 133 mmol/L (135-145) L 04/19/18 04:15 Potassium 3.5 mmol/L (3.5-5.0) 04/19/18 04:15 Chloride 111 mmol/L (101-111) 04/19/18 04:15 Carbon Dioxide 15 mmol/L (21-32) L 04/19/18 04:15 Anion Gap 7.0 (6-13) 04/19/18 04:15 BUN 29 mg/dL (6-20) H 04/19/18 04:15 Creatinine 1.0 mg/dL (0.4-1.0) 04/19/18 04:15 Estimated GFR (MDRD) 52 (>89) L 04/19/18 04:15 Glucose 120 mg/dL (70-100) H 04/19/18 04:15 Glycated Hemoglobin 6.5 % (4.6-6.2) H 04/15/18 16:49 Estim Average Glucose 140 (70-100) H 04/15/18 16:49 Lactic Acid 2.1 mmol/L (0.5-2.2) 04/19/18 16:04 Calcium 7.3 mg/dL (8.5-10.3) L 04/19/18 04:15 Ionized Calcium YES 04/19/18 04:15 Phosphorus 2.5 mg/dL (2.5-4.6) 04/19/18 04:15 Magnesium 2.2 mg/dL (1.7-2.8) 04/19/18 04:15 Total Bilirubin 0.8 mg/dL (0.2-1.0) 04/19/18 04:15 AST 58 IU/L (10-42) H 04/19/18 04:15 ALT 56 IU/L (10-60) 04/19/18 04:15 Alkaline Phosphatase 65 IU/L (42-121) 04/19/18 04:15 Troponin I 0.46 ng/mL (<0.49) 04/16/18 03:10 B-Natriuretic Peptide 645 pg/mL (5-100) H 04/19/18 04:15 Total Protein 5.3 g/dL (6.7-8.2) L 04/19/18 04:15 Albumin 2.1 g/dL (3.2-5.5) L 04/19/18 04:15 Globulin 3.2 g/dL (2.1-4.2) 04/19/18 04:15 Albumin/Globulin Ratio 0.7 (1.0-2.2) L 04/19/18 04:15 Lipase 22 U/L (22-51) 04/15/18 13:09 TSH 2.90 uIU/mL (0.34-5.60) 04/16/18 03:10 Urine Color YELLOW 04/15/18 13:04 Urine Clarity CLEAR (CLEAR) 04/15/18 13:04 Urine pH 6.0 PH (5.0-7.5) 04/15/18 13:04 Ur Specific [place] 1.025 (1.002-1.030) 04/15/18 13:04 Urine Protein 100 mg/dL (NEGATIVE) H 04/15/18 13:04 Urine Glucose (UA) NEGATIVE mg/dL (NEGATIVE) 04/15/18 13:04 Urine Ketones TRACE mg/dL (NEGATIVE) 04/15/18 13:04 Urine Occult Blood LARGE (NEGATIVE) H 04/15/18 13:04 Urine Nitrite NEGATIVE (NEGATIVE) 04/15/18 13:04 Urine Bilirubin NEGATIVE (NEGATIVE) 04/15/18 13:04 Urine Urobilinogen 0.2 (NORMAL) E.U./dL (NORMAL) 04/15/18 13:04 Ur Leukocyte Esterase NEGATIVE (NEGATIVE) 04/15/18 13:04 Urine RBC 0-5 /HPF (0-5) 04/15/18 13:04 Urine WBC 0-3 /HPF (0-5) 04/15/18 13:04 Ur Squamous Epith Cells MOD Squamous (<= Few) H 04/15/18 13:04 Urine Bacteria Few /HPF (None Seen) 04/15/18 13:04 Urine Mucus Few Strands 04/15/18 13:04 Ur Microscopic Review INDICATED 04/15/18 13:04 Urine Culture Comments NOT INDICATED 04/15/18 13:04 ABX Reporting Has patient been on IV antibiotics over the past 48 hours?: Yes Current Medications - Current Medications Current Medications: Active Medications Generic Name Dose Route Start Last Admin Trade Name Freq PRN Reason Stop Dose Admin Acetaminophen 650 mg 04/15/18 16:28 04/19/18 06:07 Tylenol PO 650 mg Q4HR PRN Administration Pain 1 to 4 Aspirin 81 mg 04/18/18 21:00 04/18/18 21:11 Ecotrin PO 81 mg QPM REKHA Administration Atorvastatin Calcium 40 mg 04/15/18 21:00 04/18/18 21:11 Lipitor PO 40 mg QPM REKHA Administration Clotrimazole 1 applic 04/16/18 09:00 04/19/18 11:37 Lotrimin 1% Cream TOP 1 applic DAILY REKHA Administration Diltiazem HCl 180 mg 04/20/18 09:00 Cardizem Cd PO DAILY REKHA Emollient Ointment 1 applic 04/18/18 21:00 04/19/18 10:58 Hydrophor TOP 1 applic BID REKHA Administration Enoxaparin Sodium 40 mg 04/16/18 09:00 04/19/18 10:58 Lovenox SUBQ 40 mg DAILY REKHA Administration Vancomycin HCl 1.5 gm/ Sodium 500 mls @ 335 mls/hr 04/19/18 14:00 04/19/18 16 :01 Chloride IV Infused Q24H [facility] Infusion Levothyroxine Sodium 50 mcg 04/16/18 07:00 04/19/18 06:06 Synthroid PO 50 mcg QDAC REKHA Administration Metoprolol Succinate 100 mg 04/19/18 09:00 04/19/18 08:51 Toprol Xl PO 100 mg DAILY [facility] Administration Metoprolol Tartrate 5 mg 04/16/18 23:57 04/18/18 08:58 Lopressor Inj IVP 5 mg Q6H PRN Administration Hypertensive Emergency Morphine Sulfate 2 mg 04/15/18 16:28 Morphine IVP Q2H PRN Pain 8 to 10 Ondansetron HCl 4 mg 04/15/18 16:28 Zofran Inj IVP Q6HR PRN Nausea / Vomiting Oxycodone HCl 5 mg 04/15/18 16:28 Roxicodone PO Q4HR PRN Pain 5 to 7 Oxycodone HCl 10 mg 04/15/18 16:28 Roxicodone PO Q4HR PRN Pain 8 to 10 Pantoprazole Sodium 40 mg 04/16/18 08:00 04/19/18 06:07 Protonix IVP 40 mg QDAC REKHA Administration Polyethylene Glycol 17 gm 04/16/18 09:00 04/19/18 08:52 Miralax PO Not Given DAILY [facility] Potassium Chloride 10 meq 04/16/18 09:00 04/19/18 08:57 Micro-K PO Not Given DAILY REKHA Potassium Chloride 20 meq 04/19/18 08:00 04/19/18 08:51 K-Dur PO 20 meq DAILYWM REKHA Administration Prochlorperazine Edisylate 10 mg 04/15/18 16:28 Compazine Inj IVP Q6HR PRN Nausea / Vomiting Promethazine HCl 25 mg 04/15/18 16:28 Phenergan Inj IM Q6HR PRN Nausea / Vomiting Saccharomyces Boulardii 250 mg 04/19/18 13:00 04/19/18 13:14 Florastor PO 250 mg BIDWM REKHA Administration Sodium Chloride 10 ml 04/15/18 17:00 04/19/18 08:57 Normal Saline Flush 0.9% IVP 10 ml 0100,0900,1700 REKHA Administration Sodium Chloride 10 ml 04/16/18 07:46 04/17/18 06:28 Normal Saline Flush 0.9% IVP 10 ml PRN PRN Administration NEEDED PER PROVIDER ORDERS Zolpidem Tartrate 5 mg 04/15/18 16:28 Ambien PO QPM PRN Insomnia Aspirin [Aspirin EC] 81 mg PO DAILY 04/15/18 RX: Atorvastatin Calcium 40 mg PO QPM 04/15/18 RX: Clotrimazole [Clotrimazole AF] 1 applic TOP DAILY 04/15/18 RX: Levothyroxine Sodium 50 mcg PO QDAC 04/15/18 RX: Metoprolol Succinate 50 mg PO DAILY 04/15/18 RX: Potassium Chloride 10 meq PO DAILY 04/15/18
[2018-04-19] MEDS ORDERED: SODIUM CHLORIDE FLUSH 0.9% 10 ML SYRINGE IVP SCH (17:00)
[2018-04-19] MEDS: ASPIRIN EC 81 MG TABLET PO SCH (20:48)
[2018-04-19] MEDS: ATORVASTATIN 40 MG TABLET PO SCH (20:48)
[2018-04-20] MEDS ORDERED: DIPHENOX/ATROPINE 2.5/0.025 MG TABLET PO PRN (01:40)
[2018-04-20 05:47] LABS: BASOPHILS # (AUTO) 0.1 10^3/uL (0.0-0.1); BASOPHILS % (AUTO) 0.6 %; EOSINOPHILS # (AUTO) 0.2 10^3/uL (0.0-0.7); EOSINOPHILS % (AUTO) 1.3 %; HGB - HEMOGLOBIN 12.6 g/dL (12.0-16.0); LYMPHOCYTES # (AUTO) 1.1 10^3/uL (1.5-3.5); LYMPHOCYTES % (AUTO) 7.1 %; MEAN CORPUSCULAR HEMOGLOBIN 31.4 pg (27.0-31.0); MEAN CORPUSCULAR HGB CONC 33.4 g/dL (32.0-36.0); MEAN CORPUSCULAR VOLUME 93.9 fL (81.0-99.0); MEAN PLATELET VOLUME 9.3 fL (7.9-10.8); MONOCYTES # (AUTO) 0.9 10^3/uL (0.0-1.0); MONOCYTES % (AUTO) 5.6 %; NEUTROPHILS # (AUTO) 13.4 10^3/uL (1.5-6.6); NEUTROPHILS % (AUTO) 85.4 %; PLT - PLATELET COUNT 194 10^3/uL (130-450); RED CELL DISTRIBUTION WIDTH 15.3 % (12.0-15.0); WHITE BLOOD COUNT 15.7 x10^3/uL (4.8-10.8)
[2018-04-20 06:00] LABS: ALBUMIN 2.1 g/dL (3.2-5.5); ALBUMIN/GLOBULIN RATIO 0.6 (1.0-2.2); ALKALINE PHOSPHATASE 70 IU/L (42-121); ALT ALANINE AMINOTRANSFERASE 47 IU/L (10-60); AST ASPARTATE AMINOTRANSFERASE 42 IU/L (10-42); BILIRUBIN,TOTAL 0.5 mg/dL (0.2-1.0); BUN - BLOOD UREA NITROGEN 29 mg/dL (6-20); CALCIUM 7.4 mg/dL (8.5-10.3); CARBON DIOXIDE - CO2 17 mmol/L (21-32); CHLORIDE 111 mmol/L (101-111); CREATININE 0.9 mg/dL (0.4-1.0); GFR - MDRD 59 (>89); GLUCOSE 112 mg/dL (70-100); MAGNESIUM 2.2 mg/dL (1.7-2.8); PHOSPHORUS 2.2 mg/dL (2.5-4.6); SODIUM 135 mmol/L (135-145); TOTAL PROTEIN 5.5 g/dL (6.7-8.2)
[2018-04-20 06:05] LABS: VBG PH 7.356 (7.31-7.41)
[2018-04-20] MEDS: SODIUM CHLORIDE FLUSH 0.9% 10 ML SYRINGE IVP SCH ×3 (06:12→18:19)
[2018-04-20] MEDS: LEVOTHYROXINE 25 MCG TABLET PO SCH (06:12)
[2018-04-20] MEDS: PANTOPRAZOLE 40 MG VIAL IVP SCH (06:12)
[2018-04-20] MEDS: POTASSIUM CHLORIDE 10 MEQ CAPSULE PO SCH (09:09)
[2018-04-20] MEDS: NEUTRA-PHOS 250 MG TABLET PO SCH ×2 (09:09→11:56)
[2018-04-20] MEDS: diltiaZEM CD 180 MG CAPSULE PO SCH (09:10)
[2018-04-20] MEDS: SACCHAROMYCES BOULARDII 250 MG CAPSULE PO SCH ×2 (09:10→18:19)
[2018-04-20] MEDS: ENOXAPARIN 40 MG/0.4 ML SYRINGE SUBQ SCH (09:10)
[2018-04-20] MEDS: CLOTRIMAZOLE 1% CREAM 15 GM TUBE TOP SCH (09:10)
[2018-04-20] MEDS: MINERAL OIL/HYDROPHIL PETROLAT 454 GM JAR TOP SCH ×2 (09:11→21:58)
[2018-04-20] MEDS: METOPROLOL SUCCINATE 50 MG TABLET PO SCH (09:11)
[2018-04-20] MEDS: POLYETHYLENE GLYCOL 3350 17 GM PACKET PO SCH (09:11)
[2018-04-20] MEDS: POTASSIUM CHLORIDE 20 MEQ TABLET PO SCH (09:17)
--- NOTE | 2018-04-20 10:43 | PROVIDER PROGRESS NOTE ---
Assessment/Plan - Problem List (1) Septic shock Assessment/Plan: Assessment/Plan: Patient presented with fever, tachycardia, leukocytosis and bandemia. She had an elevated lactic acid of 4.0. The patient did have a mild elevation in her creatinine up to 1.1 from 0.7 and mild elevation in her troponin up to 0.43. The patient appeared to have severe sepsis with endorgan damage. The patient also had metabolic encephalopathy as she was confused. The patient underwent extensive workup for source of infection and was found to have a left lower extremity cellulitis as the likely source of her sepsis. Blood cultures were positive with group G strep likely source being the left leg cellulitis on 04/15/18 and are again positive on 04/16/18 On 04/16/18 morning patient was hypotensive despite several IV fluid boluses patient remained hypotensive with SBP in 70 Worsening leukocytosis and fever of 38.8 also on 04/16/18 Transferred to ICU and placed on levophed on 04/16/18 Lactic acid initially increased to 4.2 then improved to normal Off levophed now and maintaining her BP On 04/19/18 patient appeared to be improving in the morning and order was placed to move to med/surg but worsened in the early afternoon. She became increasingly lethargic and repeat labs showed worsening leukocytosis, patient became hypotensive with elevated lactic acid. Patient was given IVF, blood cx was repeated and abx was changed from ceftriaxone back to vancomycin with improvement in BP and lactic acid. This morning patient is still drowsy but arouses easily. Her WBC inreased to 15.7 was down to 11.1. BP is more stable and HR is in the 110s. Spoke with patients son and told him that his mother seems to have improved slightly since yesterday afternoon but could go in either direction going forward and the next 24-48 hours are an important indicator. He wants to continue aggressive treatment. I also spoke about possibility of transfer to another hospital for higher level of care if she worsens or does not improve over next 48 hours. Told him at this point there is nothing that would be done differently at another facility therefore transfer was not needed at this time. Plan: Check CXR and UA for other sources of infection given worsening WBC. Awaiting repeat blood cx from yesterday Continue IV Vancomycin Monitor closely in ICU (2) Bacteremia Conclusion/Plan: Group G Strep Likely source is left lower extremity cellulitis Echo negative for endocarditis X ray of ankle negative for effusion Plan: Group G strep susceptible to vancomycin COntinue IV vancomycin Awaiting repeat cx from yesterday Blood cx negative from 04/17/18 patient will need 2 weeks of IV abx from that date if most recent cx is negative Patient pulled out PICC line will need another PICC line prior to discharge for IV abx will hold off for now given bacteremia and worsening WBC but once more stable will need PICC (3) Cellulitis of left leg Conclusion/Plan: Patient presented with left lower extremity pain on exam she appears to have a swollen, tender, warm and red left lower extremity that appears to be infected. The patient likely has cellulitis as the source of her severe sepsis. Given that the patient does have septic shock we will use broad-spectrum IV antibiotics. Patient has bacteremia with group g strep and likely source is cellulitis Xray of left ankle negative for effusion Left leg appears improved but continues to have swelling Plan: Continue IV vancomycin Awaiting repeat blood cx from yesterday (4) Atrial fibrillation with RVR Conclusion/Plan: The patient presented with tachycardia which initially appeared to be sinus tachycardia with a heart rate of 142. On arrival to the medical poe the patient continued to be tachycardic with heart rate up to the 150s. The patient was given 2 doses of diltiazem in the emergency department which did seem to slow her heart rate down. The patient's EKG appears to show a right bundle branch block but it is difficult to assess if the patient has sinus rhythm or atrial fibrillation on her monitor it does appear she has atrial fibrillation. The patient does not herself know about a history of atrial fibrillation but looking back at a EMS note from 08/2017 the patient did have tachycardia at that time with a heart rate in the 180s but declined to come to the hospital. It appears the patient likely does have A. fib with RVR and will be treated as such. Patient continues to have HR of 150s this am and secondary to septic shock metoprolol stopped this am Echocardiogram shows reduced EF of 40% Telemetry monitoring shows atrial flutter/fib Patient HR better still in 110s this am Plan: Continue metoprolol 100 mg Restart Diltiazem 180 mg today as patients BP is improved Continue IV metoprolol as needed Stopped amiodarone as patient did not convert to SR and did not seem to improve HR Tele Will talk to patient about anticoagulation once improved (5) Systolic Heart Failure NYHA class I Conclusion/Plan: Echocardiogram showed no wall motion abnormalities but did show a reduced EF of 40% Had pulmonary edema which improved with lasix but then patient became hypotensive therefore stopped lasix and given IVFs Continue metoprolol Start lisinopril once patient able to tolerate (6) Acute kidney injury Conclusion/Plan: The patient's baseline creatinine is 0.7 and on presentation it is elevated to 1.1 with an elevated BUN of 23. The patient does appear to be dry on examination and does have severe sepsis with likely acute kidney injury due to prerenal azotemia. Continue IVFs We will avoid nephrotoxic agents We will monitor patient's creatinine Improved to 0.9 (7) Metabolic encephalopathy Conclusion/Plan: On presentation to the emergency department the patient was quite confused and although she does appear to have some underlying dementia it is difficult to know how much of her confusion is acute but given that she has severe sepsis it is likely that there is some component of metabolic encephalopathy. Continues to be drowsy but improved since yesterday secondary to drowsiness patient having difficulty staying awake to eat food therefore will change to soft diet and only feed when alert (8) Hyperglycemia Conclusion/Plan: Patient is hyperglycemic on presentation with a glucose of 155 which is likely a stress response secondary to her ongoing infection. The patient's hemoglobin A1c was 6.5 which is right on the borderline. We will not start any insulin at this time however the patient's blood glucose does become elevated on her daily labs will consider starting her on a sliding scale insulin. The patient does not have any history of diabetes. BG improving this am at 115 (9) Hypertension Conclusion/Plan: BP improved this am Will continue metoprolol and restart diltiazem Hold lisinopril for now Qualifiers: Hypertension type: essential hypertension Qualified Code(s): I10 - Essential (primary) hypertension (10) Hypothyroidism Conclusion/Plan: Patient is a history of hypothyroidism and takes Synthroid at home. We will continue her on her home dose of Synthroid. TSH is normal Qualifiers: Hypothyroidism type: unspecified Qualified Code(s): E03.9 - Hypothyroidism , unspecified (11) Hyperlipidemia Conclusion/Plan: Patient has a history of hyperlipidemia and takes atorvastatin at home. We will continue the patient's home dose of atorvastatin. Qualifiers: Hyperlipidemia type: unspecified Qualified Code(s): E78.5 - Hyperlipidemia , unspecified (12) Diarrhea Conclusion/Plan: Likely secondary to antibiotics Does not appear infectious Improving Continue probiotic PT got patient to sit at edge of bed yesterday and will try again today. She is extremely weak and will need SNF. Also after speaking with patients PCP it appears patient has been developing progressing dementia and will no longer be able to live alone independently. Patients son understands this and says that family plans to take her to [place] if she get through hospitalizaton and rehab. - Current Meds Current Meds: Current Medications Generic Name Dose Route Start Last Admin Trade Name Freq PRN Reason Stop Dose Admin Acetaminophen 650 mg 04/15/18 16:28 04/19/18 20:48 Tylenol PO 650 mg Q4HR PRN Administration Pain 1 to 4 Aspirin 81 mg 04/18/18 21:00 04/19/18 20:48 Ecotrin PO 81 mg QPM REKHA Administration Atorvastatin Calcium 40 mg 04/15/18 21:00 04/19/18 20:48 Lipitor PO 40 mg QPM REKHA Administration Clotrimazole 1 applic 04/16/18 09:00 04/20/18 09:10 Lotrimin 1% Cream TOP 1 applic DAILY REKHA Administration Diltiazem HCl 180 mg 04/20/18 09:00 04/20/18 09:10 Cardizem Cd PO 180 mg DAILY REKHA Administration Diphenoxylate HCl/Atropine 1 tab 04/20/18 01:40 04/20/18 09:12 Lomotil PO 1 tab QID PRN Administration Diarrhea Emollient Ointment 1 applic 04/18/18 21:00 04/20/18 09:11 Hydrophor TOP 1 applic BID REKHA Administration Enoxaparin Sodium 40 mg 04/16/18 09:00 04/20/18 09:10 Lovenox SUBQ 40 mg DAILY REKHA Administration Vancomycin HCl 1.5 gm/ Sodium 500 mls @ 335 mls/hr 04/19/18 14:00 04/19/18 16 :01 Chloride IV Infused Q24H REKHA Infusion Levothyroxine Sodium 50 mcg 04/16/18 07:00 04/20/18 06:12 Synthroid PO 50 mcg QDAC REKHA Administration Metoprolol Succinate 100 mg 04/19/18 09:00 04/20/18 09:11 Toprol Xl PO 100 mg DAILY REKHA Administration Metoprolol Tartrate 5 mg 04/16/18 23:57 04/18/18 08:58 Lopressor Inj IVP 5 mg Q6H PRN Administration Hypertensive Emergency Pantoprazole Sodium 40 mg 04/16/18 08:00 04/20/18 06:12 Protonix IVP 40 mg QDAC REKHA Administration Polyethylene Glycol 17 gm 04/16/18 09:00 04/20/18 09:11 Miralax PO Not Given DAILY REKHA Potassium Chloride 10 meq 04/16/18 09:00 04/20/18 09:09 Micro-K PO 10 meq DAILY REKHA Administration Potassium Chloride 20 meq 04/19/18 08:00 04/20/18 09:17 K-Dur PO 20 meq DAILYWM REKHA Administration Saccharomyces Boulardii 250 mg 04/19/18 13:00 04/20/18 09:10 Florastor PO 250 mg BIDWM REKHA Administration Sodium Chloride 10 ml 04/15/18 17:00 04/20/18 09:12 Normal Saline Flush 0.9% IVP 10 ml 0100,0900,1700 REKHA Administration Sodium Chloride 10 ml 04/16/18 07:46 04/17/18 06:28 Normal Saline Flush 0.9% IVP 10 ml PRN PRN Administration NEEDED PER PROVIDER ORDERS Sodium Phosphate 250 mg 04/20/18 08:00 04/20/18 09:09 K-Phos Neutral PO 04/20/18 10:01 250 mg Q2H REKHA Administration Protocol - Lab Result Lab results reviewed: Yes Fish Bone Diagrams: 04/20/18 05:07 04/20/18 05:07 - EKG Results EKG Interpreted Independently: Yes - Diagnostic Imaging Results Diagnostic Imaging Results: Final report reviewed - Additional Planning Condition/Complexity: Critical My Orders: My Active Orders 04/19/18 12:43 Initiate ICU Electrolyte Prot. [RC] .protocol Vital Signs [RC] Q1HR 04/19/18 12:55 CULTURE, BLOOD #1 [RM] Routine 04/19/18 13:00 Saccharomyces Boulardii [Florastor] 250 mg PO BIDWM 04/19/18 13:34 CULTURE, BLOOD #2 [RM] Routine 04/19/18 14:00 Vancomycin Inj [Vancomycin] 1.5 gm Sodium Chloride 0.9% [Normal Saline 0.9%] 500 ml IV Q24H 04/20/18 08:00 Neutra-Phos [K-Phos Neutral] 250 mg PO Q2H 04/20/18 09:00 diltiaZEM CD [Cardizem Cd] 180 mg PO DAILY 04/22/18 13:30 VANCOMYCIN TROUGH [CHEM] Timed Consult/Specialty: PT Plan Discussed with:: Patient, Family Time Spent: 31-60 minutes Subjective - Subjective Patient Reports: Other (Drowsy but arousable. Complains of pain in the right foot otherwise no other complaints. Afebrile overnight.) Nursing Reports: No Complaints Objective Vital Signs: Vital Signs - 24 hr 04/19/18 04/19/18 04/19/18 11:25 11:30 11:46 Temperature Heart Rate [ 104 H 98 103 H Monitoring electrodes] Respiratory 20 Rate Blood Pressure Blood Pressure 83/68 L 80/60 L 83/57 L [Right Brachial artery] O2 Saturation 100 04/19/18 04/19/18 04/19/18 12:23 12:50 12:51 Temperature Heart Rate [ 98 Monitoring electrodes] Respiratory Rate Blood Pressure 80/65 L Blood Pressure 95/67 80/65 L [Right Brachial artery] O2 Saturation 04/19/18 04/19/18 04/19/18 12:58 12:59 13:00 Temperature 36.2 C L Heart Rate [ 102 H 100 Monitoring electrodes] Respiratory 20 20 Rate Blood Pressure Blood Pressure 80/65 L 85/71 L 92/73 [Right Brachial artery] O2 Saturation 100 100 04/19/18 04/19/18 04/19/18 14:00 15:00 16:00 Temperature Heart Rate [ 94 98 104 H Monitoring electrodes] Respiratory 18 21 22 Rate Blood Pressure Blood Pressure 101/78 95/63 103/66 [Right Brachial artery] O2 Saturation 100 04/19/18 04/19/18 04/19/18 17:00 17:18 18:00 Temperature 36.7 C Heart Rate [ 100 89 95 Monitoring electrodes] Respiratory 22 23 Rate Blood Pressure Blood Pressure 105/83 H 111/80 [Right Brachial artery] O2 Saturation 04/19/18 04/19/18 04/19/18 19:00 20:00 21:00 Temperature 36.0 C L Heart Rate [ 102 H 106 H 99 Monitoring electrodes] Respiratory 22 24 22 Rate Blood Pressure Blood Pressure 108/73 108/79 117/73 [Right Brachial artery] O2 Saturation 100 100 04/19/18 04/19/18 04/20/18 22:00 23:00 00:00 Temperature 36.0 C L Heart Rate [ 111 H 104 H 100 Monitoring electrodes] Respiratory 20 19 21 Rate Blood Pressure Blood Pressure 113/72 111/69 108/71 [Right Brachial artery] O2 Saturation 100 98 100 04/20/18 04/20/18 04/20/18 01:00 02:00 03:00 Temperature Heart Rate [ 103 H 110 H 109 H Monitoring electrodes] Respiratory 18 21 17 Rate Blood Pressure Blood Pressure 111/80 115/79 124/72 [Right Brachial artery] O2 Saturation 100 100 100 04/20/18 04/20/18 04/20/18 04:00 05:00 06:00 Temperature 36.6 C Heart Rate [ 112 H 107 H 117 H Monitoring electrodes] Respiratory 21 20 20 Rate Blood Pressure Blood Pressure 113/71 111/76 122/89 H [Right Brachial artery] O2 Saturation 100 100 100 04/20/18 04/20/18 04/20/18 07:00 08:00 09:00 Temperature 36.3 C L Heart Rate [ 115 H 120 H 113 H Monitoring electrodes] Respiratory 21 24 21 Rate Blood Pressure Blood Pressure 119/75 127/86 H 109/82 H [Right Brachial artery] O2 Saturation 99 95 98 Oxygen O2 Source [Without Activity] Room air O2 Source Room air I&O (Last 24 Hrs): Intake and Output Totals x24h 04/18/18 04/19/18 04/20/18 23:59 23:59 23:59 Intake Total 4376 2523.334 690 Output Total 2214 1610 420 Balance 2162 913.334 270 General: Oriented x3, Cooperative, Other (Drowsy but arousable) HEENT: Atraumatic, PERRLA, EOMI, Mucous membr. moist/pink Neck: Supple, No JVD, No thyromegaly, +2 carotid pulse wo bruit, No LAD Lymphatic: no adenopathy Neuro: Non Focal, CN 2-12 Grossly Intact, Oriented Times 3, Other (Drowsy) Cardiovascular: Other (Irregularly, irregular, systolic murmur, tachycardic) Respiratory: Chest non-tender, No respiratory distress, Breath sounds nml Abdomen: Normal bowel sounds, Soft, No tenderness, No hepatospenomegaly Extremities: No clubbing, No cyanosis, Normal pulses, Other (Bilateral LE edema , worse on the left with erythema and tenderness) Comments/Notes: Cellulitis of left lower extremity with mild improvement - Results Results: Laboratory Results WBC 15.7 x10^3/uL (4.8-10.8) H 04/20/18 05:07 RBC 4.00 10^6/uL (4.20-5.40) L 04/20/18 05:07 Hgb 12.6 g/dL (12.0-16.0) 04/20/18 05:07 Hct 37.6 % (37.0-47.0) 04/20/18 05:07 MCV 93.9 fL (81.0-99.0) 04/20/18 05:07 MCH 31.4 pg (27.0-31.0) H 04/20/18 05:07 MCHC 33.4 g/dL (32.0-36.0) 04/20/18 05:07 RDW 15.3 % (12.0-15.0) H 04/20/18 05:07 Plt Count 194 10^3/uL (130-450) 04/20/18 05:07 MPV 9.3 fL (7.9-10.8) 04/20/18 05:07 Neut # (Auto) 13.4 10^3/uL (1.5-6.6) H 04/20/18 05:07 Lymph # (Auto) 1.1 10^3/uL (1.5-3.5) L 04/20/18 05:07 [place] # (Auto) 0.9 10^3/uL (0.0-1.0) 04/20/18 05:07 Eos # (Auto) 0.2 10^3/uL (0.0-0.7) 04/20/18 05:07 Baso # (Auto) 0.1 10^3/uL (0.0-0.1) 04/20/18 05:07 Absolute Nucleated RBC 0.03 x10^3/uL 04/20/18 05:07 Total Counted 100 04/17/18 03:05 Band Neuts % (Manual) 5 % (0-10) 04/17/18 03:05 Abnorm Lymph % (Manual) 0 % 04/17/18 03:05 Nucleated RBC % 0.2 /100WBC 04/20/18 05:07 Neutrophils # (Manual) 12.6 10^3/uL (1.5-6.6) H 04/17/18 03:05 Lymphocytes # (Manual) 1.0 10^3/uL (1.5-3.5) L 04/17/18 03:05 Monocytes # (Manual) 0.7 10^3/uL (0.0-1.0) 04/17/18 03:05 Eosinophils # (Manual) 0.1 10^3/uL (0-0.7) 04/17/18 03:05 Basophils # (Manual) 0.0 10^3/uL (0-0.1) 04/17/18 03:05 Differential Comment MANUAL DIFFERENTIAL 04/17/18 03:05 Manual Slide Review Indicated 04/19/18 12:04 WBC Morphology 2+ VACUOLA (NORMAL) 04/15/18 13:09 Platelet Estimate DECREASED (<130,000) (NORMAL) 04/17/18 03:05 Platelet Morphology NORMAL APPEARANCE (NORMAL) 04/15/18 13:09 RBC Morph Micro Appear 2+ ANISOCYTOSIS (NORMAL) 04/19/18 12:04 VBG pH 7.356 (7.31-7.41) 04/20/18 05:07 Ionized Calcium 1.06 mmol/L (1.15-1.33) L 04/20/18 05:07 Sodium 135 mmol/L (135-145) 04/20/18 05:07 Potassium 3.6 mmol/L (3.5-5.0) 04/20/18 05:07 Chloride 111 mmol/L (101-111) 04/20/18 05:07 Carbon Dioxide 17 mmol/L (21-32) L 04/20/18 05:07 Anion Gap 7.0 (6-13) 04/20/18 05:07 BUN 29 mg/dL (6-20) H 04/20/18 05:07 Creatinine 0.9 mg/dL (0.4-1.0) 04/20/18 05:07 Estimated GFR (MDRD) 59 (>89) L 04/20/18 05:07 Glucose 112 mg/dL (70-100) H 04/20/18 05:07 Glycated Hemoglobin 6.5 % (4.6-6.2) H 04/15/18 16:49 Estim Average Glucose 140 (70-100) H 04/15/18 16:49 Lactic Acid 2.2 mmol/L (0.5-2.2) 04/19/18 19:18 Calcium 7.4 mg/dL (8.5-10.3) L 04/20/18 05:07 Ionized Calcium YES 04/20/18 05:07 Phosphorus 2.2 mg/dL (2.5-4.6) L 04/20/18 05:07 Magnesium 2.2 mg/dL (1.7-2.8) 04/20/18 05:07 Total Bilirubin 0.5 mg/dL (0.2-1.0) 04/20/18 05:07 AST 42 IU/L (10-42) 04/20/18 05:07 ALT 47 IU/L (10-60) 04/20/18 05:07 Alkaline Phosphatase 70 IU/L (42-121) 04/20/18 05:07 Troponin I 0.46 ng/mL (<0.49) 04/16/18 03:10 B-Natriuretic Peptide 697 pg/mL (5-100) H 04/20/18 05:07 Total Protein 5.5 g/dL (6.7-8.2) L 04/20/18 05:07 Albumin 2.1 g/dL (3.2-5.5) L 04/20/18 05:07 Globulin 3.4 g/dL (2.1-4.2) 04/20/18 05:07 Albumin/Globulin Ratio 0.6 (1.0-2.2) L 04/20/18 05:07 Lipase 22 U/L (22-51) 04/15/18 13:09 TSH 2.90 uIU/mL (0.34-5.60) 04/16/18 03:10 Urine Color YELLOW 04/15/18 13:04 Urine Clarity CLEAR (CLEAR) 04/15/18 13:04 Urine pH 6.0 PH (5.0-7.5) 04/15/18 13:04 Ur Specific [place] 1.025 (1.002-1.030) 04/15/18 13:04 Urine Protein 100 mg/dL (NEGATIVE) H 04/15/18 13:04 Urine Glucose (UA) NEGATIVE mg/dL (NEGATIVE) 04/15/18 13:04 Urine Ketones TRACE mg/dL (NEGATIVE) 04/15/18 13:04 Urine Occult Blood LARGE (NEGATIVE) H 04/15/18 13:04 Urine Nitrite NEGATIVE (NEGATIVE) 04/15/18 13:04 Urine Bilirubin NEGATIVE (NEGATIVE) 04/15/18 13:04 Urine Urobilinogen 0.2 (NORMAL) E.U./dL (NORMAL) 04/15/18 13:04 Ur Leukocyte Esterase NEGATIVE (NEGATIVE) 04/15/18 13:04 Urine RBC 0-5 /HPF (0-5) 04/15/18 13:04 Urine WBC 0-3 /HPF (0-5) 04/15/18 13:04 Ur Squamous Epith Cells MOD Squamous (<= Few) H 04/15/18 13:04 Urine Bacteria Few /HPF (None Seen) 04/15/18 13:04 Urine Mucus Few Strands 04/15/18 13:04 Ur Microscopic Review INDICATED 04/15/18 13:04 Urine Culture Comments NOT INDICATED 04/15/18 13:04 ABX Reporting Has patient been on IV antibiotics over the past 48 hours?: Yes Current Medications - Current Medications Current Medications: Active Medications Generic Name Dose Route Start Last Admin Trade Name Freq PRN Reason Stop Dose Admin Acetaminophen 650 mg 04/15/18 16:28 04/19/18 20:48 Tylenol PO 650 mg Q4HR PRN Administration Pain 1 to 4 Aspirin 81 mg 04/18/18 21:00 04/19/18 20:48 Ecotrin PO 81 mg QPM REKHA Administration Atorvastatin Calcium 40 mg 04/15/18 21:00 04/19/18 20:48 Lipitor PO 40 mg QPM REKHA Administration Clotrimazole 1 applic 04/16/18 09:00 04/20/18 09:10 Lotrimin 1% Cream TOP 1 applic DAILY REKHA Administration Diltiazem HCl 180 mg 04/20/18 09:00 04/20/18 09:10 Cardizem Cd PO 180 mg DAILY REKHA Administration Diphenoxylate HCl/Atropine 1 tab 04/20/18 01:40 04/20/18 09:12 Lomotil PO 1 tab QID PRN Administration Diarrhea Emollient Ointment 1 applic 04/18/18 21:00 04/20/18 09:11 Hydrophor TOP 1 applic BID REKHA Administration Enoxaparin Sodium 40 mg 04/16/18 09:00 04/20/18 09:10 Lovenox SUBQ 40 mg DAILY REKHA Administration Vancomycin HCl 1.5 gm/ Sodium 500 mls @ 335 mls/hr 04/19/18 14:00 04/19/18 16 :01 Chloride IV Infused Q24H REKHA Infusion Levothyroxine Sodium 50 mcg 04/16/18 07:00 04/20/18 06:12 Synthroid PO 50 mcg QDAC REKHA Administration Metoprolol Succinate 100 mg 04/19/18 09:00 04/20/18 09:11 Toprol Xl PO 100 mg DAILY REKHA Administration Metoprolol Tartrate 5 mg 04/16/18 23:57 04/18/18 08:58 Lopressor Inj IVP 5 mg Q6H PRN Administration Hypertensive Emergency Morphine Sulfate 2 mg 04/15/18 16:28 Morphine IVP Q2H PRN Pain 8 to 10 Ondansetron HCl 4 mg 04/15/18 16:28 Zofran Inj IVP Q6HR PRN Nausea / Vomiting Oxycodone HCl 5 mg 04/15/18 16:28 Roxicodone PO Q4HR PRN Pain 5 to 7 Oxycodone HCl 10 mg 04/15/18 16:28 Roxicodone PO Q4HR PRN Pain 8 to 10 Pantoprazole Sodium 40 mg 04/16/18 08:00 04/20/18 06:12 Protonix IVP 40 mg QDAC REKHA Administration Polyethylene Glycol 17 gm 04/16/18 09:00 04/20/18 09:11 Miralax PO Not Given DAILY [facility] Potassium Chloride 10 meq 04/16/18 09:00 04/20/18 09:09 Micro-K PO 10 meq DAILY REKHA Administration Potassium Chloride 20 meq 04/19/18 08:00 04/20/18 09:17 K-Dur PO 20 meq DAILYWM REKHA Administration Prochlorperazine Edisylate 10 mg 04/15/18 16:28 Compazine Inj IVP Q6HR PRN Nausea / Vomiting Promethazine HCl 25 mg 04/15/18 16:28 Phenergan Inj IM Q6HR PRN Nausea / Vomiting Saccharomyces Boulardii 250 mg 04/19/18 13:00 04/20/18 09:10 Florastor PO 250 mg BIDWM REKHA Administration Sodium Chloride 10 ml 04/15/18 17:00 04/20/18 09:12 Normal Saline Flush 0.9% IVP 10 ml 0100,0900,1700 REKHA Administration Sodium Chloride 10 ml 04/16/18 07:46 04/17/18 06:28 Normal Saline Flush 0.9% IVP 10 ml PRN PRN Administration NEEDED PER PROVIDER ORDERS Sodium Phosphate 250 mg 04/20/18 08:00 04/20/18 09:09 K-Phos Neutral PO 04/20/18 10:01 250 mg Q2H REKHA Administration Protocol Zolpidem Tartrate 5 mg 04/15/18 16:28 Ambien PO QPM PRN Insomnia Aspirin [Aspirin EC] 81 mg PO DAILY 04/15/18 Atorvastatin Calcium 40 mg PO QPM 04/15/18 Clotrimazole [Clotrimazole AF] 1 applic TOP DAILY 04/15/18 Levothyroxine Sodium 50 mcg PO QDAC 04/15/18 Metoprolol Succinate 50 mg PO DAILY 04/15/18 Potassium Chloride 10 meq PO DAILY 04/15/18
[2018-04-20 10:58] LABS: BILIRUBIN,URINE NEGATIVE (NEGATIVE); GLUCOSE, URINE (UA) NEGATIVE (NEGATIVE); KETONES,URINE (UA) NEGATIVE (NEGATIVE); LEUKOCYTE ESTERASE, URINE NEGATIVE (NEGATIVE); NITRITE,URINE NEGATIVE (NEGATIVE); OCCULT BLOOD,URINE TRACE-INTA (NEGATIVE); PROTEIN,URINE NEGATIVE (NEGATIVE); UROBILINOGEN,URINE 0.2 (NORMAL) E.U./dL (NORMAL)
[2018-04-20 11:03] LABS: CLARITY,URINE CLEAR (CLEAR)
[2018-04-20] MEDS: METOPROLOL 5 MG/5 ML VIAL IVP PRN (11:57)
[2018-04-20] MEDS: VANCOMYCIN INJ 1.5 GM in SODIUM CHLORIDE 0.9% 500 ML IV SCH (14:09)
--- NOTE | 2018-04-20 16:06 | XRAY Report ---
Procedure Date: 04/20/2018 Accession Number: [id number] / [id number] Procedure: XR - Chest 1 View X-Ray CPT Code: 58493 FULL RESULT: EXAM: Chest 1 View X-Ray DATE: 04/20/2018 11:30 AM CLINICAL HISTORY: Increasing WBC COMPARISON: Chest radiograph 04/18/2018. TECHNIQUE: Single view of the chest. FINDINGS: Lungs/Pleura: Opacification of the lung bases presumably due to small to moderate pleural effusions is similar to the previous study when accounting for differences in technique. Pneumonia or mass at the lung bases is not excluded. There has been interval decrease in central pulmonary congestion. Mediastinum: The cardiomediastinal silhouette is enlarged, likely stable accounting for differences in technique. Other: Median sternotomy wires are unchanged. IMPRESSION: Interval decrease in pulmonary edema. Likely stable small to moderate bilateral pleural effusions. RADIA
[2018-04-20] MEDS: ATORVASTATIN 40 MG TABLET PO SCH (21:58)
[2018-04-20] MEDS: ASPIRIN EC 81 MG TABLET PO SCH (21:58)
[2018-04-21] MEDS: SODIUM CHLORIDE FLUSH 0.9% 10 ML SYRINGE IVP SCH ×3 (04:51→17:08)
[2018-04-21 05:45] LABS: BASOPHILS % (AUTO) 0.3 %; EOSINOPHILS # (AUTO) 0.1 10^3/uL (0.0-0.7); HGB - HEMOGLOBIN 12.6 g/dL (12.0-16.0); LYMPHOCYTES % (AUTO) 7.8 %; MEAN CORPUSCULAR HEMOGLOBIN 31.9 pg (27.0-31.0); MEAN CORPUSCULAR HGB CONC 33.4 g/dL (32.0-36.0); MEAN CORPUSCULAR VOLUME 95.4 fL (81.0-99.0); MEAN PLATELET VOLUME 9.2 fL (7.9-10.8); MONOCYTES # (AUTO) 0.8 10^3/uL (0.0-1.0); MONOCYTES % (AUTO) 6.6 %; NEUTROPHILS # (AUTO) 10.6 10^3/uL (1.5-6.6); NEUTROPHILS % (AUTO) 84.3 %; PLT - PLATELET COUNT 208 10^3/uL (130-450); RED BLOOD COUNT 3.96 10^6/uL (4.20-5.40); RED CELL DISTRIBUTION WIDTH 15.9 % (12.0-15.0); WHITE BLOOD COUNT 12.6 x10^3/uL (4.8-10.8)
[2018-04-21] MEDS: PANTOPRAZOLE 40 MG VIAL IVP SCH (07:04)
[2018-04-21] MEDS: LEVOTHYROXINE 25 MCG TABLET PO SCH (07:04)
[2018-04-21] MEDS: POLYETHYLENE GLYCOL 3350 17 GM PACKET PO SCH (07:59)
[2018-04-21] MEDS: MINERAL OIL/HYDROPHIL PETROLAT 454 GM JAR TOP SCH (09:56)
[2018-04-21] MEDS: ENOXAPARIN 40 MG/0.4 ML SYRINGE SUBQ SCH (09:56)
[2018-04-21] MEDS: CLOTRIMAZOLE 1% CREAM 15 GM TUBE TOP SCH (09:56)
[2018-04-21] MEDS: METOPROLOL SUCCINATE 50 MG TABLET PO SCH ×2 (11:13→18:02)
[2018-04-21] MEDS: POTASSIUM CHLORIDE 20 MEQ TABLET PO SCH (11:13)
[2018-04-21] MEDS: SACCHAROMYCES BOULARDII 250 MG CAPSULE PO SCH ×2 (11:13→17:07)
[2018-04-21] MEDS: diltiaZEM CD 180 MG CAPSULE PO SCH (11:13)
--- NOTE | 2018-04-21 11:45 | PROVIDER PROGRESS NOTE ---
Assessment/Plan - Problem List (1) Septic shock Assessment/Plan: The patient's BP is still borderline at 89-100 systolic. She still has intermittent high HR of 100-110 and has pre-renal azotemia. The presumed etiology of hypotension is from Streptococcal bacteremia. Continue iv Vanco. Restart iv fluids at low rate, since pulmonary edema has improved on CXR. Recheck Lactic Acid level and monotor daily while she is in ICU. I updated son, Chandan regarding her status. (2) Bacteremia Assessment/Plan: Group G strep identified. WBC is declining again. Source is presumed to be L legcellulitis, as her U/A repeat was neg yesterday and CXR \\did not show new infiltrate yesterday. Pt got worse when was on Ceftriaxone, therefore Vanco was resumed and Ceftriaxone stopped yesterday and WBC did drop this am. No MRI can be done to check for osteomyelitis, since she has a mechanical AVR. Continue Vanco, monitoring levels. (3) Cellulitis of left leg Assessment/Plan: No MRI is possible to do to check for osteomyelitis, since she has a mechanical AVR. Continue leg elevation an antibiotics. (4) Atrial fibrillation with RVR Assessment/Plan: There is only an admission EKG showing Aflutter vs SVT with RVR and a RBBB. Telemetry and today's EKG confirms Afib, and RBBB continues. Her HR still can be >100 intermittently, and since she is obtunded, she sis not get am Cardizem CD, but RN was able to get the Metoprolol Succ in to her. Will continue her Metoprolol Succ, which she was on at home, but change the Cardizem to 60 mg bid or tid, as needed for HR control, since her BP is borderline. Her CHADS score is 3 (CHF and age >75 and Hx of HTN), but she is only on an ASA daily, not an anticoagulant, for unknown reason. Will consider anticoagulant, after discussion with Pt when she has a better mental status, as was stated in Dr Childs's note from yesterday. (5) Systolic congestive heart failure, NYHA class 1 Qualifiers: Congestive heart failure chronicity: acute Qualified Code(s): I50.21 - Acute systolic (congestive) heart failure Assessment/Plan: This is a new finding and is most likely due to uncontrolled rapid HR. She is not SOB, therefore NYHA class I. Continue Toprol. No Spironolactone or JAMIE or ARB, due to low BP and volume depletion, needing iv fluids. (6) Acute kidney injury Assessment/Plan: Improved but BUN/creat ratio is still >20. Will start gentle fluids iv, since her po intake is poor. Monitor daily BMP. (7) Diarrhea Assessment/Plan: Improving, with only a small loose BM today. Will stop Miralax. Diarrhea was probably adding to her volume depletion. Starting gentle hydration. Since diarrhea is improving, she has not had a C diff or cultures. (8) Metabolic encephalopathy Assessment/Plan: She was "up through the night", therefore may be ing, and daytime, she is tired.. Or this may represent her AMS from the sepsis. Will stop the prn Ambien order. (9) Hyperglycemia Assessment/Plan: No Hx of DM. This may be from stress of sepsis. Monitor daily BMP. (10) Hypothyroidism Qualifiers: Hypothyroidism type: unspecified Qualified Code(s): E03.9 - Hypothyroidism , unspecified (11) Hx of essential hypertension Assessment/Plan: No HTN since admitted, in fact she is still borderline hypotensive. Continue q1h VS monitoring in ICU. (12) Hx of hyperlipidemia Assessment/Plan: Lipitor from home was continued. No LFT abnormalities. - Current Meds Current Meds: Current Medications Generic Name Dose Route Start Last Admin Trade Name Freq PRN Reason Stop Dose Admin Acetaminophen 650 mg 04/15/18 16:28 04/19/18 20:48 Tylenol PO 650 mg Q4HR PRN Administration Pain 1 to 4 Aspirin 81 mg 04/18/18 21:00 04/20/18 21:58 Ecotrin PO 81 mg QPM REKHA Administration Atorvastatin Calcium 40 mg 04/15/18 21:00 04/20/18 21:58 Lipitor PO 40 mg QPM REKHA Administration Clotrimazole 1 applic 04/16/18 09:00 04/21/18 09:56 Lotrimin 1% Cream TOP 1 applic DAILY REKHA Administration Diphenoxylate HCl/Atropine 1 tab 04/20/18 01:40 04/20/18 09:12 Lomotil PO 1 tab QID PRN Administration Diarrhea Emollient Ointment 1 applic 04/18/18 21:00 04/21/18 09:56 Hydrophor TOP 1 applic BID REKHA Administration Enoxaparin Sodium 40 mg 04/16/18 09:00 04/21/18 09:56 Lovenox SUBQ 40 mg DAILY REKHA Administration Vancomycin HCl 1.5 gm/ Sodium 500 mls @ 335 mls/hr 04/19/18 14:00 04/20/18 16 :18 Chloride IV Infused Q24H REKHA Infusion Levothyroxine Sodium 50 mcg 04/16/18 07:00 04/21/18 07:04 Synthroid PO 50 mcg QDAC REKHA Administration Metoprolol Succinate 100 mg 04/19/18 09:00 04/21/18 11:13 Toprol Xl PO Not Given DAILY REKHA Metoprolol Tartrate 5 mg 04/16/18 23:57 04/20/18 11:57 Lopressor Inj IVP 5 mg Q6H PRN Administration Hypertensive Emergency Pantoprazole Sodium 40 mg 04/16/18 08:00 04/21/18 07:04 Protonix IVP 40 mg QDAC REKHA Administration Potassium Chloride 20 meq 04/19/18 08:00 04/21/18 11:13 K-Dur PO Not Given DAILYWM REKHA Saccharomyces Boulardii 250 mg 04/19/18 13:00 04/21/18 11:13 Florastor PO Not Given BIDWM REKHA Sodium Chloride 10 ml 04/15/18 17:00 04/21/18 09:55 Normal Saline Flush 0.9% IVP 10 ml 0100,0900,1700 REKHA Administration Sodium Chloride 10 ml 04/16/18 07:46 04/17/18 06:28 Normal Saline Flush 0.9% IVP 10 ml PRN PRN Administration NEEDED PER PROVIDER ORDERS - Lab Result Fish Bone Diagrams: 04/21/18 04:48 04/20/18 05:07 - EKG Results EKG Interpreted Independently: Yes EKG Comparison: Changed from prior EKG EKG Findings: Afib, RBBB, no furher Aflutter vs SVT with rapid rate as on admission. - Additional Planning My Orders: My Active Orders 04/21/18 11:24 EKG - Electrocardiogram [RC] .ONCE 04/21/18 11:32 LACTIC ACID, VENOUS [CHEM] Timed 04/21/18 12:00 Sodium Chloride 0.9% [Normal Saline 0.9%] 1,000 ml IV TKO 04/21/18 21:00 diltiaZEM [Cardizem] 60 mg PO BID 04/22/18 05:00 BMP - BASIC METABOLIC PANEL [CHEM] DAILYLAB CBC - COMP BLD CT W/AUTO DIFF [HEME] DAILYLAB MAGNESIUM [CHEM] DAILYLAB PHOSPHORUS [CHEM] DAILYLAB 04/23/18 05:00 BMP - BASIC METABOLIC PANEL [CHEM] DAILYLAB CBC - COMP BLD CT W/AUTO DIFF [HEME] DAILYLAB MAGNESIUM [CHEM] DAILYLAB PHOSPHORUS [CHEM] DAILYLAB 04/24/18 05:00 BMP - BASIC METABOLIC PANEL [CHEM] DAILYLAB CBC - COMP BLD CT W/AUTO DIFF [HEME] DAILYLAB PHOSPHORUS [CHEM] DAILYLAB Subjective - Subjective Patient Reports: Other (Lethargic this am. Answers with a whipspering voice. Son says tat this is a worsened condition for her, as 2 days ago she was able to feed herself.) Nursing Reports: Other (She ate 10 spoonfuls of oatmeal and 30 ml of liquids, had choking with initial swallowing of liquid.) Objective Vital Signs: Vital Signs - 24 hr 04/20/18 04/20/18 04/20/18 11:57 12:00 12:27 Temperature 36.6 C Heart Rate [ 102 H Monitoring electrodes] Respiratory 20 Rate Blood Pressure 125/84 H 104/74 Blood Pressure 110/87 H [Right Brachial artery] O2 Saturation 100 04/20/18 04/20/18 04/20/18 13:00 14:00 15:00 Temperature Heart Rate [ 98 102 H 104 H Monitoring electrodes] Respiratory 23 22 23 Rate Blood Pressure Blood Pressure 118/80 104/72 109/82 H [Right Brachial artery] O2 Saturation 100 100 98 04/20/18 04/20/18 04/20/18 16:00 17:00 18:00 Temperature 36.6 C Heart Rate [ 101 H 98 88 Monitoring electrodes] Respiratory 20 23 20 Rate Blood Pressure Blood Pressure 102/81 H 92/65 99/57 L [Right Brachial artery] O2 Saturation 100 99 99 04/20/18 04/20/18 04/20/18 19:00 19:30 20:00 Temperature 36.7 C Heart Rate [ 90 95 89 Monitoring electrodes] Respiratory 18 19 20 Rate Blood Pressure Blood Pressure 86/49 L 97/72 93/72 [Right Brachial artery] O2 Saturation 95 96 96 07/16/18 07/16/18 07/16/18 21:00 22:00 23:00 Temperature Heart Rate [ 88 89 91 Monitoring electrodes] Respiratory 24 20 21 Rate Blood Pressure Blood Pressure 87/58 L 92/71 88/65 L [Right Brachial artery] O2 Saturation 96 100 95 04/21/18 04/21/18 04/21/18 00:00 01:00 02:00 Temperature 36.7 C Heart Rate [ 86 98 89 Monitoring electrodes] Respiratory 19 22 20 Rate Blood Pressure Blood Pressure 102/80 92/74 97/70 [Right Brachial artery] O2 Saturation 95 92 95 04/21/18 04/21/18 04/21/18 03:00 04:00 05:00 Temperature 36.7 C Heart Rate [ 96 87 85 Monitoring electrodes] Respiratory 22 21 22 Rate Blood Pressure Blood Pressure 91/77 87/76 L 95/71 [Right Brachial artery] O2 Saturation 96 96 94 04/21/18 04/21/18 04/21/18 06:00 07:00 08:00 Temperature 36.4 C L Heart Rate [ 92 98 100 Monitoring electrodes] Respiratory 20 23 17 Rate Blood Pressure Blood Pressure 96/69 94/69 106/75 [Right Brachial artery] O2 Saturation 94 95 96 04/21/18 04/21/18 04/21/18 09:49 10:00 11:00 Temperature Heart Rate [ 66 110 H 102 H Monitoring electrodes] Respiratory 20 24 19 Rate Blood Pressure Blood Pressure 102/69 117/81 H 106/80 [Right Brachial artery] O2 Saturation 96 96 94 Oxygen O2 Source [Without Activity] Room air O2 Source Room air I&O (Last 24 Hrs): Intake and Output Totals x24h 04/19/18 04/20/18 04/21/18 23:59 23:59 23:59 Intake Total 2523.334 2400 95.666 Output Total 1610 1150 560 Balance 251.433 3717 -464.334 General: Other (Lethargic, answers appropriately, possibly only oriented to self.) HEENT: Other (Mucosa dry) Neck: Supple, No JVD Neuro: Other (Obtinded, moves spontaneoously.) Cardiovascular: No murmurs Respiratory: No respiratory distress, Breath sounds nml Abdomen: Soft, No tenderness Extremities: Other (2+ edema bilaterally to knees. L singh has "ink outline" at below knee but redness is only above ankle. L forefoot is bandaged.) - Results Results: Laboratory Results WBC 12.6 x10^3/uL (4.8-10.8) H 04/21/18 04:48 RBC 3.96 10^6/uL (4.20-5.40) L 04/21/18 04:48 Hgb 12.6 g/dL (12.0-16.0) 04/21/18 04:48 Hct 37.8 % (37.0-47.0) 04/21/18 04:48 MCV 95.4 fL (81.0-99.0) 04/21/18 04:48 MCH 31.9 pg (27.0-31.0) H 04/21/18 04:48 MCHC 33.4 g/dL (32.0-36.0) 04/21/18 04:48 RDW 15.9 % (12.0-15.0) H 04/21/18 04:48 Plt Count 208 10^3/uL (130-450) 04/21/18 04:48 MPV 9.2 fL (7.9-10.8) 04/21/18 04:48 Neut # (Auto) 10.6 10^3/uL (1.5-6.6) H 04/21/18 04:48 Lymph # (Auto) 1.0 10^3/uL (1.5-3.5) L 04/21/18 04:48 [place] # (Auto) 0.8 10^3/uL (0.0-1.0) 04/21/18 04:48 Eos # (Auto) 0.1 10^3/uL (0.0-0.7) 04/21/18 04:48 Baso # (Auto) 0.0 10^3/uL (0.0-0.1) 04/21/18 04:48 Absolute Nucleated RBC 0.06 x10^3/uL 04/21/18 04:48 Total Counted 100 04/17/18 03:05 Band Neuts % (Manual) 5 % (0-10) 04/17/18 03:05 Abnorm Lymph % (Manual) 0 % 04/17/18 03:05 Nucleated RBC % 0.5 /100WBC 04/21/18 04:48 Neutrophils # (Manual) 12.6 10^3/uL (1.5-6.6) H 04/17/18 03:05 Lymphocytes # (Manual) 1.0 10^3/uL (1.5-3.5) L 04/17/18 03:05 Monocytes # (Manual) 0.7 10^3/uL (0.0-1.0) 04/17/18 03:05 Eosinophils # (Manual) 0.1 10^3/uL (0-0.7) 04/17/18 03:05 Basophils # (Manual) 0.0 10^3/uL (0-0.1) 04/17/18 03:05 Differential Comment MANUAL DIFFERENTIAL 04/17/18 03:05 Manual Slide Review Indicated 04/19/18 12:04 WBC Morphology 2+ VACUOLA (NORMAL) 04/15/18 13:09 Platelet Estimate DECREASED (<130,000) (NORMAL) 04/17/18 03:05 Platelet Morphology NORMAL APPEARANCE (NORMAL) 04/15/18 13:09 RBC Morph Micro Appear 2+ ANISOCYTOSIS (NORMAL) 04/19/18 12:04 VBG pH 7.356 (7.31-7.41) 04/20/18 05:07 Ionized Calcium 1.06 mmol/L (1.15-1.33) L 04/20/18 05:07 Sodium 135 mmol/L (135-145) 04/20/18 05:07 Potassium 3.6 mmol/L (3.5-5.0) 04/20/18 05:07 Chloride 111 mmol/L (101-111) 04/20/18 05:07 Carbon Dioxide 17 mmol/L (21-32) L 04/20/18 05:07 Anion Gap 7.0 (6-13) 04/20/18 05:07 BUN 29 mg/dL (6-20) H 04/20/18 05:07 Creatinine 0.9 mg/dL (0.4-1.0) 04/20/18 05:07 Estimated GFR (MDRD) 59 (>89) L 04/20/18 05:07 Glucose 112 mg/dL (70-100) H 04/20/18 05:07 Glycated Hemoglobin 6.5 % (4.6-6.2) H 04/15/18 16:49 Estim Average Glucose 140 (70-100) H 04/15/18 16:49 Lactic Acid 2.2 mmol/L (0.5-2.2) 04/19/18 19:18 Calcium 7.4 mg/dL (8.5-10.3) L 04/20/18 05:07 Ionized Calcium YES 04/20/18 05:07 Phosphorus 2.2 mg/dL (2.5-4.6) L 04/20/18 05:07 Magnesium 2.2 mg/dL (1.7-2.8) 04/20/18 05:07 Total Bilirubin 0.5 mg/dL (0.2-1.0) 04/20/18 05:07 AST 42 IU/L (10-42) 04/20/18 05:07 ALT 47 IU/L (10-60) 04/20/18 05:07 Alkaline Phosphatase 70 IU/L (42-121) 04/20/18 05:07 Troponin I 0.46 ng/mL (<0.49) 04/16/18 03:10 B-Natriuretic Peptide 697 pg/mL (5-100) H 04/20/18 05:07 Total Protein 5.5 g/dL (6.7-8.2) L 04/20/18 05:07 Albumin 2.1 g/dL (3.2-5.5) L 04/20/18 05:07 Globulin 3.4 g/dL (2.1-4.2) 04/20/18 05:07 Albumin/Globulin Ratio 0.6 (1.0-2.2) L 04/20/18 05:07 Lipase 22 U/L (22-51) 04/15/18 13:09 TSH 2.90 uIU/mL (0.34-5.60) 04/16/18 03:10 Urine Color YELLOW 04/20/18 10:30 Urine Clarity CLEAR (CLEAR) 04/20/18 10:30 Urine pH 6.0 PH (5.0-7.5) 04/20/18 10:30 Ur Specific [place] 1.010 (1.002-1.030) 04/20/18 10:30 Urine Protein NEGATIVE mg/dL (NEGATIVE) 04/20/18 10:30 Urine Glucose (UA) NEGATIVE mg/dL (NEGATIVE) 04/20/18 10:30 Urine Ketones NEGATIVE mg/dL (NEGATIVE) 04/20/18 10:30 Urine Occult Blood TRACE-INTA (NEGATIVE) 04/20/18 10:30 Urine Nitrite NEGATIVE (NEGATIVE) 04/20/18 10:30 Urine Bilirubin NEGATIVE (NEGATIVE) 04/20/18 10:30 Urine Urobilinogen 0.2 (NORMAL) E.U./dL (NORMAL) 04/20/18 10:30 Ur Leukocyte Esterase NEGATIVE (NEGATIVE) 04/20/18 10:30 Urine RBC 0-5 /HPF (0-5) 04/15/18 13:04 Urine WBC 0-3 /HPF (0-5) 04/15/18 13:04 Ur Squamous Epith Cells MOD Squamous (<= Few) H 04/15/18 13:04 Urine Bacteria Few /HPF (None Seen) 04/15/18 13:04 Urine Mucus Few Strands 04/15/18 13:04 Ur Microscopic Review NOT INDICATED 04/20/18 10:30 Urine Culture Comments NOT INDICATED 04/20/18 10:30 ABX Reporting Has patient been on IV antibiotics over the past 48 hours?: Yes
[2018-04-21] MEDS ORDERED: SODIUM CHLORIDE 0.9% 1,000 ML IV SCH (12:00)
[2018-04-21] MEDS: SODIUM CHLORIDE FLUSH 0.9% 10 ML SYRINGE IVP PRN (13:52)
[2018-04-21] MEDS: VANCOMYCIN INJ 1.5 GM in SODIUM CHLORIDE 0.9% 500 ML IV SCH (13:52)
[2018-04-21] MEDS: ASPIRIN EC 81 MG TABLET PO SCH (21:09)
[2018-04-21] MEDS: ATORVASTATIN 40 MG TABLET PO SCH (21:09)
[2018-04-22] MEDS: MINERAL OIL/HYDROPHIL PETROLAT 454 GM JAR TOP SCH ×3 (01:43→22:00)
[2018-04-22] MEDS: SODIUM CHLORIDE FLUSH 0.9% 10 ML SYRINGE IVP SCH ×3 (03:18→17:30)
[2018-04-22 05:28] LABS: BASOPHILS # (AUTO) 0.1 10^3/uL (0.0-0.1); BASOPHILS % (AUTO) 0.6 %; EOSINOPHILS # (AUTO) 0.1 10^3/uL (0.0-0.7); EOSINOPHILS % (AUTO) 0.9 %; HGB - HEMOGLOBIN 12.4 g/dL (12.0-16.0); LYMPHOCYTES # (AUTO) 1.1 10^3/uL (1.5-3.5); LYMPHOCYTES % (AUTO) 9.8 %; MEAN CORPUSCULAR HEMOGLOBIN 31.5 pg (27.0-31.0); MEAN CORPUSCULAR HGB CONC 33.4 g/dL (32.0-36.0); MEAN CORPUSCULAR VOLUME 94.3 fL (81.0-99.0); MONOCYTES # (AUTO) 0.8 10^3/uL (0.0-1.0); MONOCYTES % (AUTO) 7.3 %; NEUTROPHILS % (AUTO) 81.4 %; PLT - PLATELET COUNT 221 10^3/uL (130-450); RED BLOOD COUNT 3.93 10^6/uL (4.20-5.40); RED CELL DISTRIBUTION WIDTH 15.3 % (12.0-15.0); WHITE BLOOD COUNT 11.1 x10^3/uL (4.8-10.8)
[2018-04-22 05:33] LABS: CALCIUM 7.5 mg/dL (8.5-10.3); CREATININE 0.9 mg/dL (0.4-1.0); MAGNESIUM 2.2 mg/dL (1.7-2.8); PHOSPHORUS 3.3 mg/dL (2.5-4.6)
[2018-04-22] MEDS: LEVOTHYROXINE 25 MCG TABLET PO SCH (06:40)
[2018-04-22] MEDS: PANTOPRAZOLE 40 MG VIAL IVP SCH (06:40)
[2018-04-22] MEDS: SODIUM CHLORIDE FLUSH 0.9% 10 ML SYRINGE IVP PRN (06:41)
[2018-04-22] MEDS: COD LIVER OIL/ZINC OXIDE 113 GM TUBE TOP PRN ×2 (08:50→16:10)
[2018-04-22] MEDS: ENOXAPARIN 40 MG/0.4 ML SYRINGE SUBQ SCH (08:57)
[2018-04-22] MEDS: SACCHAROMYCES BOULARDII 250 MG CAPSULE PO SCH ×2 (09:22→17:16)
[2018-04-22] MEDS: POTASSIUM CHLORIDE 20 MEQ TABLET PO SCH (09:22)
[2018-04-22] MEDS: VANCOMYCIN INJ 1.5 GM in SODIUM CHLORIDE 0.9% 500 ML IV SCH (13:45)
[2018-04-22 13:58] LABS: VANCOMYCIN,TROUGH 17.9 ug/mL (10.0-20.0)
[2018-04-22] MEDS: CLOTRIMAZOLE 1% CREAM 15 GM TUBE TOP SCH (15:31)
--- NOTE | 2018-04-22 16:57 | PROVIDER PROGRESS NOTE ---
Assessment/Plan - Problem List (1) Bacteremia Assessment/Plan: WBC continues to decline. Pt on Vanco iv Plan a 2 week course, as the source was likely the cellulitis. (2) Cellulitis of left leg Assessment/Plan: Clinically improved. Continue topical care and leg elevated when OOB in chair. (3) Atrial fibrillation with RVR Assessment/Plan: HR controlled with meds and fluid replacement. OK to transfer to [facility] status on Telemetry. Pt on ASA (not anticoag) due to advanced age and risk of falls/bleeds. (4) Systolic congestive heart failure, NYHA class 1 Qualifiers: Congestive heart failure chronicity: acute Qualified Code(s): I50.21 - Acute systolic (congestive) heart failure Assessment/Plan: Pt on B-lindsay, no JAMIE-I yet as BP is only borderline normal today. (5) Metabolic encephalopathy Assessment/Plan: Slow to clear, but aily improvement seen. Continue PT and she will need SNF for PT after [facility]. I discussed her progress with son Chandan at bedside. (6) Acute kidney injury Assessment/Plan: Slow improved with hydration. Monitor BMP daily. (7) Hypothyroidism Qualifiers: Hypothyroidism type: unspecified Qualified Code(s): E03.9 - Hypothyroidism , unspecified Assessment/Plan: On replacement. (8) Diarrhea Assessment/Plan: Improving. (9) Hx of essential hypertension Assessment/Plan: Not yet back on BP meds resumed yet. (10) Hx of hyperlipidemia Assessment/Plan: On meds (11) Septic shock Assessment/Plan: Resolved with fluid replacement for several days. - Current Meds Current Meds: Current Medications Generic Name Dose Route Start Last Admin Trade Name Freq PRN Reason Stop Dose Admin Acetaminophen 650 mg 04/15/18 16:28 04/19/18 20:48 Tylenol PO 650 mg Q4HR PRN Administration Pain 1 to 4 Aspirin 81 mg 04/18/18 21:00 04/21/18 21:09 Ecotrin PO 81 mg QPM REKHA Administration Atorvastatin Calcium 40 mg 04/15/18 21:00 04/21/18 21:09 Lipitor PO 40 mg QPM REKHA Administration Clotrimazole 1 applic 04/16/18 09:00 04/22/18 15:31 Lotrimin 1% Cream TOP 1 applic DAILY REKHA Administration Diltiazem HCl 60 mg 04/21/18 21:00 04/22/18 09:22 Cardizem PO 60 mg BID REKHA Administration Diphenoxylate HCl/Atropine 1 tab 04/20/18 01:40 04/20/18 09:12 Lomotil PO 1 tab QID PRN Administration Diarrhea Emollient Ointment 1 applic 04/18/18 21:00 04/22/18 15:32 Hydrophor TOP Not Given BID REKHA Enoxaparin Sodium 40 mg 04/16/18 09:00 04/22/18 08:57 Lovenox SUBQ 40 mg DAILY REKHA Administration Vancomycin HCl 1.5 gm/ Sodium 500 mls @ 335 mls/hr 04/19/18 14:00 04/22/18 16 :45 Chloride IV Infused Q24H REKHA Infusion Levothyroxine Sodium 50 mcg 04/16/18 07:00 04/22/18 06:40 Synthroid PO 50 mcg QDAC REKHA Administration Metoprolol Succinate 100 mg 04/21/18 17:54 04/21/18 18:02 Toprol Xl PO 100 mg QDDINNER REKHA Administration Metoprolol Tartrate 5 mg 04/16/18 23:57 04/20/18 11:57 Lopressor Inj IVP 5 mg Q6H PRN Administration Hypertensive Emergency Pantoprazole Sodium 40 mg 04/16/18 08:00 04/22/18 06:40 Protonix IVP 40 mg QDAC REKHA Administration Potassium Chloride 20 meq 04/19/18 08:00 04/22/18 09:22 K-Dur PO 20 meq DAILYWM REKHA Administration Saccharomyces Boulardii 250 mg 04/19/18 13:00 04/22/18 09:22 Florastor PO 250 mg BIDWM REKHA Administration Sodium Chloride 10 ml 04/15/18 17:00 04/22/18 09:23 Normal Saline Flush 0.9% IVP 10 ml 0100,0900,1700 REKHA Administration Sodium Chloride 10 ml 04/16/18 07:46 04/22/18 06:41 Normal Saline Flush 0.9% IVP 10 ml PRN PRN Administration NEEDED PER PROVIDER ORDERS Zinc Oxide 113 gm 04/21/18 16:26 04/22/18 16:10 Desitin TOP 1 applic PRN PRN Administration Skin Care - Lab Result Fish Bone Diagrams: 04/22/18 04:35 04/22/18 04:35 - Additional Planning My Orders: My Active Orders 04/21/18 17:54 Metoprolol Succinate [Toprol Xl] 100 mg PO QDDINNER 04/21/18 21:00 diltiaZEM [Cardizem] 60 mg PO BID 04/22/18 07:51 Telemetry- [RC] Q4HR 04/23/18 05:00 BMP - BASIC METABOLIC PANEL [CHEM] DAILYLAB CBC - COMP BLD CT W/AUTO DIFF [HEME] DAILYLAB MAGNESIUM [CHEM] DAILYLAB PHOSPHORUS [CHEM] DAILYLAB 04/24/18 05:00 BMP - BASIC METABOLIC PANEL [CHEM] DAILYLAB CBC - COMP BLD CT W/AUTO DIFF [HEME] DAILYLAB PHOSPHORUS [CHEM] DAILYLAB Subjective - Subjective Patient Reports: Other (Slightly more awake and able to drink independantly from a cup) Nursing Reports: Other (Had a BM in bed) Objective Vital Signs: Vital Signs - 24 hr 04/21/18 04/21/18 04/21/18 17:00 18:00 19:00 Temperature Heart Rate [ 116 H 112 H 111 H Monitoring electrodes] Respiratory 23 24 22 Rate Blood Pressure Blood Pressure 106/75 117/80 116/80 [Right Brachial artery] O2 Saturation 96 97 95 04/21/18 04/21/18 04/21/18 20:00 21:00 21:09 Temperature 36.4 C L Heart Rate [ 104 H 114 H Monitoring electrodes] Respiratory 24 24 Rate Blood Pressure 104/80 Blood Pressure 102/73 104/80 [Right Brachial artery] O2 Saturation 94 94 04/21/18 04/21/18 04/22/18 22:00 23:00 00:00 Temperature 36.7 C Heart Rate [ 90 83 78 Monitoring electrodes] Respiratory 25 H 23 22 Rate Blood Pressure Blood Pressure 103/71 84/64 L 88/62 L [Right Brachial artery] O2 Saturation 91 L 94 92 04/22/18 04/22/18 04/22/18 01:00 02:00 03:00 Temperature Heart Rate [ 79 86 91 Monitoring electrodes] Respiratory 21 20 20 Rate Blood Pressure Blood Pressure 95/64 88/71 L 104/70 [Right Brachial artery] O2 Saturation 94 92 94 04/22/18 04/22/18 04/22/18 04:00 05:00 06:00 Temperature 36.4 C L Heart Rate [ 94 90 96 Monitoring electrodes] Respiratory 21 19 19 Rate Blood Pressure Blood Pressure 107/71 98/73 111/82 H [Right Brachial artery] O2 Saturation 95 93 94 04/22/18 04/22/18 04/22/18 07:00 08:00 09:00 Temperature 36.2 C L Heart Rate [ 96 97 107 H Monitoring electrodes] Respiratory 22 23 23 Rate Blood Pressure Blood Pressure 109/63 105/66 105/66 [Right Brachial artery] O2 Saturation 94 94 94 04/22/18 04/22/18 04/22/18 09:22 12:00 16:47 Temperature 36.2 C L 36.2 C L Heart Rate [ 64 64 Monitoring electrodes] Respiratory 23 22 Rate Blood Pressure 105/66 Blood Pressure 113/77 129/68 [Right Brachial artery] O2 Saturation 93 95 Oxygen O2 Source [Without Activity] Room air O2 Source Room air I&O (Last 24 Hrs): Intake and Output Totals x24h 04/20/18 04/21/18 04/22/18 23:59 23:59 23:59 Intake Total 2400 4270.434 4646 Output Total 1150 1090 830 Balance 1250 757.375 3086 General: Other (Somnolent. awakens for 1 min to name or shake) HEENT: Other (Dry oral mucosa) Neck: Supple Neuro: Non Focal, Other (Obtunded) Cardiovascular: Regular rate, No murmurs Respiratory: No respiratory distress, Breath sounds nml Abdomen: Soft Extremities: Other (Trace edema bilat) - Results Results: Laboratory Results WBC 11.1 x10^3/uL (4.8-10.8) H 04/22/18 04:35 RBC 3.93 10^6/uL (4.20-5.40) L 04/22/18 04:35 Hgb 12.4 g/dL (12.0-16.0) 04/22/18 04:35 Hct 37.1 % (37.0-47.0) 04/22/18 04:35 MCV 94.3 fL (81.0-99.0) 04/22/18 04:35 MCH 31.5 pg (27.0-31.0) H 04/22/18 04:35 MCHC 33.4 g/dL (32.0-36.0) 04/22/18 04:35 RDW 15.3 % (12.0-15.0) H 04/22/18 04:35 Plt Count 221 10^3/uL (130-450) 04/22/18 04:35 MPV 9.0 fL (7.9-10.8) 04/22/18 04:35 Neut # (Auto) 9.0 10^3/uL (1.5-6.6) H 04/22/18 04:35 Lymph # (Auto) 1.1 10^3/uL (1.5-3.5) L 04/22/18 04:35 [place] # (Auto) 0.8 10^3/uL (0.0-1.0) 04/22/18 04:35 Eos # (Auto) 0.1 10^3/uL (0.0-0.7) 04/22/18 04:35 Baso # (Auto) 0.1 10^3/uL (0.0-0.1) 04/22/18 04:35 Absolute Nucleated RBC 0.02 x10^3/uL 04/22/18 04:35 Total Counted 100 04/17/18 03:05 Band Neuts % (Manual) 5 % (0-10) 04/17/18 03:05 Abnorm Lymph % (Manual) 0 % 04/17/18 03:05 Nucleated RBC % 0.1 /100WBC 04/22/18 04:35 Neutrophils # (Manual) 12.6 10^3/uL (1.5-6.6) H 04/17/18 03:05 Lymphocytes # (Manual) 1.0 10^3/uL (1.5-3.5) L 04/17/18 03:05 Monocytes # (Manual) 0.7 10^3/uL (0.0-1.0) 04/17/18 03:05 Eosinophils # (Manual) 0.1 10^3/uL (0-0.7) 04/17/18 03:05 Basophils # (Manual) 0.0 10^3/uL (0-0.1) 04/17/18 03:05 Differential Comment MANUAL DIFFERENTIAL 04/17/18 03:05 Manual Slide Review Indicated 04/19/18 12:04 WBC Morphology 2+ VACUOLA (NORMAL) 04/15/18 13:09 Platelet Estimate DECREASED (<130,000) (NORMAL) 04/17/18 03:05 Platelet Morphology NORMAL APPEARANCE (NORMAL) 04/15/18 13:09 RBC Morph Micro Appear 2+ ANISOCYTOSIS (NORMAL) 04/19/18 12:04 VBG pH 7.356 (7.31-7.41) 04/20/18 05:07 Ionized Calcium 1.06 mmol/L (1.15-1.33) L 04/20/18 05:07 Sodium 138 mmol/L (135-145) 04/22/18 04:35 Potassium 3.6 mmol/L (3.5-5.0) 04/22/18 04:35 Chloride 113 mmol/L (101-111) H 04/22/18 04:35 Carbon Dioxide 17 mmol/L (21-32) L 04/22/18 04:35 Anion Gap 8.0 (6-13) 04/22/18 04:35 BUN 24 mg/dL (6-20) H 04/22/18 04:35 Creatinine 0.9 mg/dL (0.4-1.0) 04/22/18 04:35 Estimated GFR (MDRD) 59 (>89) L 04/22/18 04:35 Glucose 122 mg/dL (70-100) H 04/22/18 04:35 Glycated Hemoglobin 6.5 % (4.6-6.2) H 04/15/18 16:49 Estim Average Glucose 140 (70-100) H 04/15/18 16:49 Lactic Acid 1.8 mmol/L (0.5-2.2) 04/21/18 11:32 Calcium 7.5 mg/dL (8.5-10.3) L 04/22/18 04:35 Ionized Calcium YES 04/20/18 05:07 Phosphorus 3.3 mg/dL (2.5-4.6) 04/22/18 04:35 Magnesium 2.2 mg/dL (1.7-2.8) 04/22/18 04:35 Total Bilirubin 0.5 mg/dL (0.2-1.0) 04/20/18 05:07 AST 42 IU/L (10-42) 04/20/18 05:07 ALT 47 IU/L (10-60) 04/20/18 05:07 Alkaline Phosphatase 70 IU/L (42-121) 04/20/18 05:07 Troponin I 0.46 ng/mL (<0.49) 04/16/18 03:10 B-Natriuretic Peptide 697 pg/mL (5-100) H 04/20/18 05:07 Total Protein 5.5 g/dL (6.7-8.2) L 04/20/18 05:07 Albumin 1.9 g/dL (3.2-5.5) L 04/22/18 04:35 Globulin 3.4 g/dL (2.1-4.2) 04/20/18 05:07 Albumin/Globulin Ratio 0.6 (1.0-2.2) L 04/20/18 05:07 Lipase 22 U/L (22-51) 04/15/18 13:09 TSH 2.90 uIU/mL (0.34-5.60) 04/16/18 03:10 Urine Color YELLOW 04/20/18 10:30 Urine Clarity CLEAR (CLEAR) 04/20/18 10:30 Urine pH 6.0 PH (5.0-7.5) 04/20/18 10:30 Ur Specific [place] 1.010 (1.002-1.030) 04/20/18 10:30 Urine Protein NEGATIVE mg/dL (NEGATIVE) 04/20/18 10:30 Urine Glucose (UA) NEGATIVE mg/dL (NEGATIVE) 04/20/18 10:30 Urine Ketones NEGATIVE mg/dL (NEGATIVE) 04/20/18 10:30 Urine Occult Blood TRACE-INTA (NEGATIVE) 04/20/18 10:30 Urine Nitrite NEGATIVE (NEGATIVE) 04/20/18 10:30 Urine Bilirubin NEGATIVE (NEGATIVE) 04/20/18 10:30 Urine Urobilinogen 0.2 (NORMAL) E.U./dL (NORMAL) 04/20/18 10:30 Ur Leukocyte Esterase NEGATIVE (NEGATIVE) 04/20/18 10:30 Urine RBC 0-5 /HPF (0-5) 04/15/18 13:04 Urine WBC 0-3 /HPF (0-5) 04/15/18 13:04 Ur Squamous Epith Cells MOD Squamous (<= Few) H 04/15/18 13:04 Urine Bacteria Few /HPF (None Seen) 04/15/18 13:04 Urine Mucus Few Strands 04/15/18 13:04 Ur Microscopic Review NOT INDICATED 04/20/18 10:30 Urine Culture Comments NOT INDICATED 04/20/18 10:30 Last Dose Date 04/21/18 04/22/18 13:35 Last Dose Time 1400 04/22/18 13:35 Vancomycin Trough 17.9 ug/mL (10.0-20.0) 04/22/18 13:35
[2018-04-22] MEDS: METOPROLOL SUCCINATE 50 MG TABLET PO SCH (17:16)
[2018-04-22] MEDS: ATORVASTATIN 40 MG TABLET PO SCH (21:12)
[2018-04-22] MEDS: THIAMINE 100 MG TABLET PO SCH (21:12)
[2018-04-22] MEDS: ASPIRIN EC 81 MG TABLET PO SCH (21:16)
[2018-04-23 05:01] LABS: BASOPHILS # (AUTO) 0.1 10^3/uL (0.0-0.1); BASOPHILS % (AUTO) 0.5 %; EOSINOPHILS # (AUTO) 0.1 10^3/uL (0.0-0.7); EOSINOPHILS % (AUTO) 0.7 %; HGB - HEMOGLOBIN 13.1 g/dL (12.0-16.0); LYMPHOCYTES # (AUTO) 0.9 10^3/uL (1.5-3.5); LYMPHOCYTES % (AUTO) 7.4 %; MEAN CORPUSCULAR HEMOGLOBIN 31.7 pg (27.0-31.0); MEAN CORPUSCULAR HGB CONC 33.1 g/dL (32.0-36.0); MEAN CORPUSCULAR VOLUME 95.6 fL (81.0-99.0); MEAN PLATELET VOLUME 8.8 fL (7.9-10.8); MONOCYTES # (AUTO) 1.3 10^3/uL (0.0-1.0); MONOCYTES % (AUTO) 10.4 %; PLT - PLATELET COUNT 235 10^3/uL (130-450); RED BLOOD COUNT 4.15 10^6/uL (4.20-5.40); RED CELL DISTRIBUTION WIDTH 15.8 % (12.0-15.0); WHITE BLOOD COUNT 12.3 x10^3/uL (4.8-10.8)
[2018-04-23 05:02] LABS: CALCIUM 7.7 mg/dL (8.5-10.3); CREATININE 0.9 mg/dL (0.4-1.0); MAGNESIUM 2.3 mg/dL (1.7-2.8); PHOSPHORUS 3.1 mg/dL (2.5-4.6)
[2018-04-23] MEDS: PANTOPRAZOLE 40 MG VIAL IVP SCH (06:57)
[2018-04-23] MEDS: LEVOTHYROXINE 25 MCG TABLET PO SCH (06:57)
[2018-04-23] MEDS: SODIUM CHLORIDE FLUSH 0.9% 10 ML SYRINGE IVP SCH ×3 (06:57→17:39)
[2018-04-23] MEDS: SODIUM CHLORIDE FLUSH 0.9% 10 ML SYRINGE IVP PRN (06:58)
[2018-04-23] MEDS: POTASSIUM CHLORIDE 20 MEQ TABLET PO SCH (08:31)
[2018-04-23] MEDS: SACCHAROMYCES BOULARDII 250 MG CAPSULE PO SCH ×2 (08:31→17:46)
[2018-04-23] MEDS: THIAMINE 100 MG TABLET PO SCH ×2 (08:36→20:33)
[2018-04-23] MEDS: ENOXAPARIN 40 MG/0.4 ML SYRINGE SUBQ SCH (08:42)
--- NOTE | 2018-04-23 08:56 | PROVIDER PROGRESS NOTE ---
Assessment/Plan - Problem List (1) Metabolic encephalopathy Assessment/Plan: Persistent somnolence and weakness, but able to drink independently minimally. Continue monitoring BMP. Will recheck a head CT for any changes since admission head CT. Thiamine po was started for possible improvement in mentation also (per UpToDate reference). Will stop any prn narcotics, antiemetics so none can be used to add to lethargy. This may be her new baseline after shock and potential brain hypoperfusion. (2) Bacteremia Assessment/Plan: WBC slightly increased Will continue iv Vanco for Group G Strep bacteremia Monitor CBC daily. (3) Cellulitis of left leg Assessment/Plan: Good improvement in edema and redness since on antibiotics. Continue topical care (4) Atrial fibrillation with RVR Assessment/Plan: HR is controlled on current meds of Toprol XL and Cardizem po bid. Pt on daily ASA, no anticoag (5) Systolic congestive heart failure, NYHA class 1 Qualifiers: Congestive heart failure chronicity: acute Qualified Code(s): I50.21 - Acute systolic (congestive) heart failure Assessment/Plan: LVEF is 40% by Echo earlier this admission. No signs of respiratory distress. Continue B-lindsay, ASA. Will add JAMIE-I now that BP is hypertensive. (6) Hypothyroidism Qualifiers: Hypothyroidism type: unspecified Qualified Code(s): E03.9 - Hypothyroidism , unspecified Assessment/Plan: On treatment. TSH was normal at admission. Will check a free T4 to assure she is getting adequate dose and asjust if low due to lethargy. (7) Diarrhea Assessment/Plan: Improved. (8) Hx of essential hypertension Assessment/Plan: On treatment with B-lindsay and Cardizem. Will add JAMIE-I as BP elevated today. (9) Hx of hyperlipidemia Assessment/Plan: Will stop statin, since her diet is currently poor and low in fat and in case of statin adding to muscle weakness. (10) Septic shock Assessment/Plan: Resolved. (11) Acute kidney injury Assessment/Plan: Resolved - Current Meds Current Meds: Current Medications Generic Name Dose Route Start Last Admin Trade Name Freq PRN Reason Stop Dose Admin Acetaminophen 650 mg 04/15/18 16:28 04/19/18 20:48 Tylenol PO 650 mg Q4HR PRN Administration Pain 1 to 4 Aspirin 81 mg 04/18/18 21:00 04/22/18 21:16 Ecotrin PO 81 mg QPM REKHA Administration Atorvastatin Calcium 40 mg 04/15/18 21:00 04/22/18 21:12 Lipitor PO 40 mg QPM REKHA Administration Clotrimazole 1 applic 04/16/18 09:00 04/22/18 15:31 Lotrimin 1% Cream TOP 1 applic DAILY REKHA Administration Diltiazem HCl 60 mg 04/21/18 21:00 04/23/18 08:32 Cardizem PO 60 mg BID REKHA Administration Diphenoxylate HCl/Atropine 1 tab 04/20/18 01:40 04/20/18 09:12 Lomotil PO 1 tab QID PRN Administration Diarrhea Emollient Ointment 1 applic 04/18/18 21:00 04/22/18 22:00 Hydrophor TOP 1 applic BID REKHA Administration Enoxaparin Sodium 40 mg 04/16/18 09:00 04/23/18 08:42 Lovenox SUBQ 40 mg DAILY REKHA Administration Vancomycin HCl 1.5 gm/ Sodium 500 mls @ 335 mls/hr 04/19/18 14:00 04/22/18 16 :45 Chloride IV Infused Q24H REKHA Infusion Levothyroxine Sodium 50 mcg 04/16/18 07:00 04/23/18 06:57 Synthroid PO 50 mcg QDAC REKHA Administration Metoprolol Succinate 100 mg 04/21/18 17:54 04/22/18 17:16 Toprol Xl PO 100 mg QDDINNER REKHA Administration Metoprolol Tartrate 5 mg 04/16/18 23:57 04/20/18 11:57 Lopressor Inj IVP 5 mg Q6H PRN Administration Hypertensive Emergency Pantoprazole Sodium 40 mg 04/16/18 08:00 04/23/18 06:57 Protonix IVP 40 mg QDAC REKHA Administration Potassium Chloride 20 meq 04/19/18 08:00 04/23/18 08:31 K-Dur PO 20 meq DAILYWM REKHA Administration Saccharomyces Boulardii 250 mg 04/19/18 13:00 04/23/18 08:31 Florastor PO 250 mg BIDWM REKHA Administration Sodium Chloride 10 ml 04/15/18 17:00 04/23/18 08:35 Normal Saline Flush 0.9% IVP 10 ml 0100,0900,1700 REKHA Administration Sodium Chloride 10 ml 07/12/18 07:46 04/23/18 06:58 Normal Saline Flush 0.9% IVP 10 ml PRN PRN Administration NEEDED PER PROVIDER ORDERS Thiamine HCl 100 mg 04/22/18 21:00 04/23/18 08:36 Vitamin B-1 PO 100 mg BID REKHA Administration Zinc Oxide 113 gm 04/21/18 16:26 04/22/18 16:10 Desitin TOP 1 applic PRN PRN Administration Skin Care - Lab Result Fish Bone Diagrams: 04/23/18 04:10 04/23/18 04:10 - Additional Planning My Orders: My Active Orders 04/22/18 21:00 Thiamine [Vitamin B-1] 100 mg PO BID 04/23/18 08:12 Head W/O [CT] Routine 04/24/18 05:00 BMP - BASIC METABOLIC PANEL [CHEM] DAILYLAB CBC - COMP BLD CT W/AUTO DIFF [HEME] DAILYLAB PHOSPHORUS [CHEM] DAILYLAB Subjective - Subjective Patient Reports: Other ("Tired") Nursing Reports: Other (Unchanged marked somnolence and weakness) Objective Vital Signs: Vital Signs - 24 hr 04/22/18 04/22/18 04/22/18 09:00 09:22 12:00 Temperature 36.2 C L Heart Rate [ 107 H 64 Monitoring electrodes] Respiratory 23 23 Rate Blood Pressure 105/66 Blood Pressure 105/66 113/77 [Right Brachial artery] O2 Saturation 94 93 04/22/18 04/22/18 04/22/18 16:47 21:00 21:12 Temperature 36.2 C L 36.6 C Heart Rate [ 64 63 Monitoring electrodes] Respiratory 22 20 Rate Blood Pressure 122/67 Blood Pressure 129/68 122/67 [Right Brachial artery] O2 Saturation 95 95 04/23/18 04/23/18 04/23/18 01:00 05:00 08:05 Temperature 36.7 C 36.7 C 36.3 C L Heart Rate [ 62 60 61 Monitoring electrodes] Respiratory 21 23 19 Rate Blood Pressure Blood Pressure 98/66 129/64 157/69 H [Right Brachial artery] O2 Saturation 94 94 95 04/23/18 08:32 Temperature Heart Rate [ Monitoring electrodes] Respiratory Rate Blood Pressure 157/69 H Blood Pressure [Right Brachial artery] O2 Saturation Oxygen O2 Source [Without Activity] Room air O2 Source Room air I&O (Last 24 Hrs): Intake and Output Totals x24h 04/21/18 04/22/18 04/23/18 23:59 23:59 23:59 Intake Total 2104.119 4814 Output Total 1090 1240 340 Balance 155.060 8042 -340 General: Other (Somnolent in am, able to sit in chair in afternoon) HEENT: Mucous membr. moist/pink Neck: Supple Neuro: Other (Obtunded in am) Cardiovascular: Regular rate, No murmurs Respiratory: No respiratory distress, Breath sounds nml Abdomen: Soft, No tenderness Extremities: Other (Trace edema) - Results Results: Laboratory Results WBC 12.3 x10^3/uL (4.8-10.8) H 04/23/18 04:10 RBC 4.15 10^6/uL (4.20-5.40) L 04/23/18 04:10 Hgb 13.1 g/dL (12.0-16.0) 04/23/18 04:10 Hct 39.7 % (37.0-47.0) 04/23/18 04:10 MCV 95.6 fL (81.0-99.0) 04/23/18 04:10 MCH 31.7 pg (27.0-31.0) H 04/23/18 04:10 MCHC 33.1 g/dL (32.0-36.0) 04/23/18 04:10 RDW 15.8 % (12.0-15.0) H 04/23/18 04:10 Plt Count 235 10^3/uL (130-450) 04/23/18 04:10 MPV 8.8 fL (7.9-10.8) 04/23/18 04:10 Neut # (Auto) 10.0 10^3/uL (1.5-6.6) H 04/23/18 04:10 Lymph # (Auto) 0.9 10^3/uL (1.5-3.5) L 04/23/18 04:10 [place] # (Auto) 1.3 10^3/uL (0.0-1.0) H 04/23/18 04:10 Eos # (Auto) 0.1 10^3/uL (0.0-0.7) 04/23/18 04:10 Baso # (Auto) 0.1 10^3/uL (0.0-0.1) 04/23/18 04:10 Absolute Nucleated RBC 0.04 x10^3/uL 04/23/18 04:10 Total Counted 100 04/17/18 03:05 Band Neuts % (Manual) 5 % (0-10) 04/17/18 03:05 Abnorm Lymph % (Manual) 0 % 04/17/18 03:05 Nucleated RBC % 0.3 /100WBC 04/23/18 04:10 Neutrophils # (Manual) 12.6 10^3/uL (1.5-6.6) H 04/17/18 03:05 Lymphocytes # (Manual) 1.0 10^3/uL (1.5-3.5) L 04/17/18 03:05 Monocytes # (Manual) 0.7 10^3/uL (0.0-1.0) 04/17/18 03:05 Eosinophils # (Manual) 0.1 10^3/uL (0-0.7) 04/17/18 03:05 Basophils # (Manual) 0.0 10^3/uL (0-0.1) 04/17/18 03:05 Differential Comment MANUAL DIFFERENTIAL 04/17/18 03:05 Manual Slide Review Indicated 04/19/18 12:04 WBC Morphology 2+ VACUOLA (NORMAL) 04/15/18 13:09 Platelet Estimate DECREASED (<130,000) (NORMAL) 04/17/18 03:05 Platelet Morphology NORMAL APPEARANCE (NORMAL) 04/15/18 13:09 RBC Morph Micro Appear 2+ ANISOCYTOSIS (NORMAL) 04/19/18 12:04 VBG pH 7.356 (7.31-7.41) 04/20/18 05:07 Ionized Calcium 1.06 mmol/L (1.15-1.33) L 04/20/18 05:07 Sodium 137 mmol/L (135-145) 04/23/18 04:10 Potassium 3.7 mmol/L (3.5-5.0) 04/23/18 04:10 Chloride 110 mmol/L (101-111) 04/23/18 04:10 Carbon Dioxide 20 mmol/L (21-32) L 04/23/18 04:10 Anion Gap 7.0 (6-13) 04/23/18 04:10 BUN 23 mg/dL (6-20) H 04/23/18 04:10 Creatinine 0.9 mg/dL (0.4-1.0) 04/23/18 04:10 Estimated GFR (MDRD) 59 (>89) L 04/23/18 04:10 Glucose 126 mg/dL (70-100) H 04/23/18 04:10 Glycated Hemoglobin 6.5 % (4.6-6.2) H 04/15/18 16:49 Estim Average Glucose 140 (70-100) H 04/15/18 16:49 Lactic Acid 1.8 mmol/L (0.5-2.2) 04/21/18 11:32 Calcium 7.7 mg/dL (8.5-10.3) L 04/23/18 04:10 Ionized Calcium YES 04/20/18 05:07 Phosphorus 3.1 mg/dL (2.5-4.6) 04/23/18 04:10 Magnesium 2.3 mg/dL (1.7-2.8) 04/23/18 04:10 Total Bilirubin 0.5 mg/dL (0.2-1.0) 04/20/18 05:07 AST 42 IU/L (10-42) 04/20/18 05:07 ALT 47 IU/L (10-60) 04/20/18 05:07 Alkaline Phosphatase 70 IU/L (42-121) 04/20/18 05:07 Troponin I 0.46 ng/mL (<0.49) 04/16/18 03:10 B-Natriuretic Peptide 697 pg/mL (5-100) H 04/20/18 05:07 Total Protein 5.5 g/dL (6.7-8.2) L 04/20/18 05:07 Albumin 1.9 g/dL (3.2-5.5) L 04/22/18 04:35 Globulin 3.4 g/dL (2.1-4.2) 04/20/18 05:07 Albumin/Globulin Ratio 0.6 (1.0-2.2) L 04/20/18 05:07 Lipase 22 U/L (22-51) 04/15/18 13:09 TSH 2.90 uIU/mL (0.34-5.60) 04/16/18 03:10 Urine Color YELLOW 04/20/18 10:30 Urine Clarity CLEAR (CLEAR) 04/20/18 10:30 Urine pH 6.0 PH (5.0-7.5) 04/20/18 10:30 Ur Specific [place] 1.010 (1.002-1.030) 04/20/18 10:30 Urine Protein NEGATIVE mg/dL (NEGATIVE) 04/20/18 10:30 Urine Glucose (UA) NEGATIVE mg/dL (NEGATIVE) 04/20/18 10:30 Urine Ketones NEGATIVE mg/dL (NEGATIVE) 04/20/18 10:30 Urine Occult Blood TRACE-INTA (NEGATIVE) 04/20/18 10:30 Urine Nitrite NEGATIVE (NEGATIVE) 04/20/18 10:30 Urine Bilirubin NEGATIVE (NEGATIVE) 04/20/18 10:30 Urine Urobilinogen 0.2 (NORMAL) E.U./dL (NORMAL) 04/20/18 10:30 Ur Leukocyte Esterase NEGATIVE (NEGATIVE) 04/20/18 10:30 Urine RBC 0-5 /HPF (0-5) 04/15/18 13:04 Urine WBC 0-3 /HPF (0-5) 04/15/18 13:04 Ur Squamous Epith Cells MOD Squamous (<= Few) H 04/15/18 13:04 Urine Bacteria Few /HPF (None Seen) 04/15/18 13:04 Urine Mucus Few Strands 04/15/18 13:04 Ur Microscopic Review NOT INDICATED 04/20/18 10:30 Urine Culture Comments NOT INDICATED 04/20/18 10:30 Last Dose Date 04/21/18 04/22/18 13:35 Last Dose Time 1400 04/22/18 13:35 Vancomycin Trough 17.9 ug/mL (10.0-20.0) 04/22/18 13:35 ABX Reporting Has patient been on IV antibiotics over the past 48 hours?: Yes
[2018-04-23] MEDS: LISINOPRIL 5 MG TABLET PO SCH (12:25)
[2018-04-23] MEDS: ACETAMINOPHEN 325 MG TABLET PO PRN (12:25)
--- NOTE | 2018-04-23 12:43 | CT Report ---
Procedure Date: 04/23/2018 Accession Number: [id number] / [id number] Procedure: CT - Head W/O CPT Code: FULL RESULT: EXAM: Head W/O DATE: 04/23/2018 11:08 AM CLINICAL HISTORY: Metabolic encephalopathy, persistent COMPARISON: 04/15/2018. TECHNIQUE: Multiaxial CT images were obtained from the foramen magnum to the vertex. IV contrast: None. Reformats: Coronal. In accordance with CT protocol optimization, one or more of the following dose reduction techniques were utilized for this exam: automated exposure control, adjustment of mA and/or KV based on patient size, or use of iterative reconstructive technique. FINDINGS: Parenchyma: No intraparenchymal hemorrhage. No evidence of mass, midline shift, or CT findings of acute infarction. [place]-white differentiation is distinct. Findings of chronic small vessel ischemic disease or unchanged. Extraaxial Spaces: Normal for age. No subdural or epidural collections identified. Ventricles: Normal in size and position. Sinuses: Imaged paranasal sinuses, orbits, and mastoids show no significant abnormality. Bones: No evidence of fracture or calvarial defect. Other: None. IMPRESSION: Stable examination. RADIA
[2018-04-23] MEDS: MINERAL OIL/HYDROPHIL PETROLAT 454 GM JAR TOP SCH ×2 (12:46→20:34)
[2018-04-23] MEDS: CLOTRIMAZOLE 1% CREAM 15 GM TUBE TOP SCH (12:47)
[2018-04-23] MEDS: COD LIVER OIL/ZINC OXIDE 113 GM TUBE TOP PRN (13:26)
[2018-04-23] MEDS: VANCOMYCIN INJ 1.5 GM in SODIUM CHLORIDE 0.9% 500 ML IV SCH (14:10)
[2018-04-23] MEDS: METOPROLOL SUCCINATE 50 MG TABLET PO SCH (17:46)
[2018-04-23] MEDS: ASPIRIN EC 81 MG TABLET PO SCH (20:34)
[2018-04-24 04:58] LABS: BASOPHILS % (AUTO) 0.3 %; EOSINOPHILS # (AUTO) 0.1 10^3/uL (0.0-0.7); EOSINOPHILS % (AUTO) 0.5 %; HGB - HEMOGLOBIN 12.4 g/dL (12.0-16.0); LYMPHOCYTES # (AUTO) 0.9 10^3/uL (1.5-3.5); LYMPHOCYTES % (AUTO) 6.9 %; MEAN CORPUSCULAR HEMOGLOBIN 31.7 pg (27.0-31.0); MEAN CORPUSCULAR HGB CONC 33.7 g/dL (32.0-36.0); MEAN CORPUSCULAR VOLUME 93.9 fL (81.0-99.0); MEAN PLATELET VOLUME 8.4 fL (7.9-10.8); MONOCYTES % (AUTO) 7.5 %; NEUTROPHILS # (AUTO) 10.9 10^3/uL (1.5-6.6); NEUTROPHILS % (AUTO) 84.8 %; PLT - PLATELET COUNT 214 10^3/uL (130-450); RED BLOOD COUNT 3.91 10^6/uL (4.20-5.40); RED CELL DISTRIBUTION WIDTH 15.6 % (12.0-15.0); WHITE BLOOD COUNT 12.8 x10^3/uL (4.8-10.8)
[2018-04-24 05:04] LABS: CALCIUM 7.7 mg/dL (8.5-10.3); CREATININE 0.7 mg/dL (0.4-1.0); PHOSPHORUS 3.8 mg/dL (2.5-4.6)
[2018-04-24] MEDS: PANTOPRAZOLE 40 MG VIAL IVP SCH (06:33)
[2018-04-24] MEDS: LEVOTHYROXINE 25 MCG TABLET PO SCH (06:33)
[2018-04-24] MEDS: SODIUM CHLORIDE FLUSH 0.9% 10 ML SYRINGE IVP PRN (06:34)
[2018-04-24] MEDS: POTASSIUM CHLORIDE 20 MEQ TABLET PO SCH (08:52)
[2018-04-24] MEDS: SACCHAROMYCES BOULARDII 250 MG CAPSULE PO SCH ×2 (08:52→17:05)
[2018-04-24] MEDS: THIAMINE 100 MG TABLET PO SCH ×2 (08:52→21:49)
[2018-04-24] MEDS: ENOXAPARIN 40 MG/0.4 ML SYRINGE SUBQ SCH (08:53)
[2018-04-24] MEDS: SODIUM CHLORIDE FLUSH 0.9% 10 ML SYRINGE IVP SCH ×3 (08:53→17:05)
[2018-04-24] MEDS: CLOTRIMAZOLE 1% CREAM 15 GM TUBE TOP SCH (11:37)
[2018-04-24] MEDS: MINERAL OIL/HYDROPHIL PETROLAT 454 GM JAR TOP SCH ×2 (11:38→21:50)
[2018-04-24] MEDS: LISINOPRIL 5 MG TABLET PO SCH (13:52)
[2018-04-24] MEDS ORDERED: VANCOMYCIN INJ 1 GM, VANCOMYCIN INJ 500 MG in SODIUM CHLORIDE 0.9% 500 ML IV SCH (14:00)
--- NOTE | 2018-04-24 16:39 | PROVIDER PROGRESS NOTE ---
Assessment/Plan - Problem List (1) Metabolic encephalopathy Assessment/Plan: Slow improvement daily for the past 3 sessions with PT. The patient therefore has rehab potential. Will plan for DCh tomorrow to SNF ( [facility] [place] for [place] and OT. (2) Bacteremia Assessment/Plan: Pt on Day 8 of treatment for Group G Strep. She will need to transition to an oral agent tomorrow, to complete a 2week course. (3) Cellulitis of left leg Assessment/Plan: Continue topical care and bandage. (4) Atrial fibrillation with RVR Assessment/Plan: HR is controlled and cont. ASA daily. (5) Systolic congestive heart failure, NYHA class 1 Qualifiers: Congestive heart failure chronicity: acute Qualified Code(s): I50.21 - Acute systolic (congestive) heart failure Assessment/Plan: Continue B-lindsay and JAMIE-I. (6) Hypothyroidism Qualifiers: Hypothyroidism type: unspecified Qualified Code(s): E03.9 - Hypothyroidism , unspecified Assessment/Plan: Continue thyroid replacement. (7) Hx of essential hypertension Assessment/Plan: Controlled. (8) Diarrhea Assessment/Plan: Resolved. (9) Hx of hyperlipidemia Assessment/Plan: Lipitor was stopped as it may have been adding to decline in mental function. - Current Meds Current Meds: Current Medications Generic Name Dose Route Start Last Admin Trade Name Freq PRN Reason Stop Dose Admin Acetaminophen 650 mg 04/15/18 16:28 04/23/18 12:25 Tylenol PO 650 mg Q4HR PRN Administration Pain 1 to 4 Aspirin 81 mg 04/18/18 21:00 04/23/18 20:34 Ecotrin PO 81 mg QPM REKHA Administration Clotrimazole 1 applic 04/16/18 09:00 04/24/18 11:37 Lotrimin 1% Cream TOP 1 applic DAILY REKHA Administration Diltiazem HCl 60 mg 04/21/18 21:00 04/24/18 08:52 Cardizem PO 60 mg BID REKHA Administration Diphenoxylate HCl/Atropine 1 tab 04/20/18 01:40 04/20/18 09:12 Lomotil PO 1 tab QID PRN Administration Diarrhea Emollient Ointment 1 applic 04/18/18 21:00 04/24/18 11:38 Hydrophor TOP 1 applic BID REKHA Administration Enoxaparin Sodium 40 mg 04/16/18 09:00 07/20/18 08:53 Lovenox SUBQ 40 mg DAILY REKHA Administration Vancomycin HCl 1 gm/ 500 mls @ 250 mls/hr 04/24/18 14:00 04/24/18 14:44 Vancomycin HCl 500 mg/ Sodium IV 250 mls/hr Chloride Q24H REKHA Administration Levothyroxine Sodium 50 mcg 04/16/18 07:00 04/24/18 06:33 Synthroid PO 50 mcg QDAC REKHA Administration Lisinopril 5 mg 04/23/18 12:00 04/24/18 13:52 Zestril PO 5 mg 1200 REKHA Administration Metoprolol Succinate 100 mg 04/21/18 17:54 04/23/18 17:46 Toprol Xl PO 100 mg QDDINNER REKHA Administration Pantoprazole Sodium 40 mg 04/16/18 08:00 04/24/18 06:33 Protonix IVP 40 mg QDAC REKHA Administration Potassium Chloride 20 meq 04/19/18 08:00 04/24/18 08:52 K-Dur PO 20 meq DAILYWM REKHA Administration Saccharomyces Boulardii 250 mg 04/19/18 13:00 04/24/18 08:52 Florastor PO 250 mg BIDWM REKHA Administration Sodium Chloride 10 ml 04/15/18 17:00 04/24/18 08:53 Normal Saline Flush 0.9% IVP 10 ml 0100,0900,1700 REKHA Administration Sodium Chloride 10 ml 04/16/18 07:46 04/24/18 06:34 Normal Saline Flush 0.9% IVP 10 ml PRN PRN Administration NEEDED PER PROVIDER ORDERS Thiamine HCl 100 mg 04/22/18 21:00 04/24/18 08:52 Vitamin B-1 PO 100 mg BID REKHA Administration Zinc Oxide 113 gm 04/21/18 16:26 04/23/18 13:26 Desitin TOP 1 applic PRN PRN Administration Skin Care - Lab Result Fish Bone Diagrams: 04/25/18 05:29 04/25/18 05:29 - Additional Planning My Orders: My Active Orders 04/25/18 05:00 BMP - BASIC METABOLIC PANEL [CHEM] DAILYLAB CBC - COMP BLD CT W/AUTO DIFF [HEME] DAILYLAB PHOSPHORUS [CHEM] DAILYLAB Subjective - Subjective Patient Reports: Feeling Better, Resting Comfortably Nursing Reports: Other (She was able to walk 5 feet today, yesterday she could feed herself sitting in a chair, 2 days ago she was only drinking from a cup and only in bed soomnolent.) Objective Vital Signs: Vital Signs - 24 hr 04/23/18 04/23/18 04/23/18 16:52 20:34 21:00 Temperature 37.0 C Heart Rate [ 60 62 Monitoring electrodes] Respiratory 17 18 Rate Blood Pressure 147/60 H Blood Pressure 124/67 131/66 H [Right Brachial artery] O2 Saturation 91 L 98 04/23/18 04/24/18 04/24/18 23:29 03:21 08:23 Temperature 36.2 C L 36.6 C Heart Rate [ 58 L 57 L 64 Monitoring electrodes] Respiratory 19 18 18 Rate Blood Pressure Blood Pressure 115/59 L 143/70 H 156/66 H [Right Brachial artery] O2 Saturation 95 97 94 04/24/18 04/24/18 08:52 15:22 Temperature 36.6 C Heart Rate [ 66 Monitoring electrodes] Respiratory 16 Rate Blood Pressure 156/66 H Blood Pressure 132/63 H [Right Brachial artery] O2 Saturation 92 Oxygen O2 Source [Without Activity] Room air O2 Source Room air I&O (Last 24 Hrs): Intake and Output Totals x24h 04/22/18 04/23/18 04/24/18 23:59 23:59 23:59 Intake Total 2490 1636 690 Output Total 8565 305 3514 Balance 1250 716 -1410 General: Other (Somnolent, awakens to voice) HEENT: Mucous membr. moist/pink Neck: Supple Neuro: Other (Obtunded) Cardiovascular: Regular rate, No murmurs Respiratory: No respiratory distress, Breath sounds nml Abdomen: Soft Extremities: Other (2 + arm edema, trace pretibial edema) - Results Results: Laboratory Results WBC 12.8 x10^3/uL (4.8-10.8) H 04/24/18 04:40 RBC 3.91 10^6/uL (4.20-5.40) L 04/24/18 04:40 Hgb 12.4 g/dL (12.0-16.0) 04/24/18 04:40 Hct 36.7 % (37.0-47.0) L 04/24/18 04:40 MCV 93.9 fL (81.0-99.0) 04/24/18 04:40 MCH 31.7 pg (27.0-31.0) H 04/24/18 04:40 MCHC 33.7 g/dL (32.0-36.0) 04/24/18 04:40 RDW 15.6 % (12.0-15.0) H 04/24/18 04:40 Plt Count 214 10^3/uL (130-450) 04/24/18 04:40 MPV 8.4 fL (7.9-10.8) 04/24/18 04:40 Neut # (Auto) 10.9 10^3/uL (1.5-6.6) H 04/24/18 04:40 Lymph # (Auto) 0.9 10^3/uL (1.5-3.5) L 04/24/18 04:40 [place] # (Auto) 1.0 10^3/uL (0.0-1.0) 04/24/18 04:40 Eos # (Auto) 0.1 10^3/uL (0.0-0.7) 04/24/18 04:40 Baso # (Auto) 0.0 10^3/uL (0.0-0.1) 04/24/18 04:40 Absolute Nucleated RBC 0.01 x10^3/uL 04/24/18 04:40 Total Counted 100 04/17/18 03:05 Band Neuts % (Manual) 5 % (0-10) 04/17/18 03:05 Abnorm Lymph % (Manual) 0 % 04/17/18 03:05 Nucleated RBC % 0.0 /100WBC 04/24/18 04:40 Neutrophils # (Manual) 12.6 10^3/uL (1.5-6.6) H 04/17/18 03:05 Lymphocytes # (Manual) 1.0 10^3/uL (1.5-3.5) L 04/17/18 03:05 Monocytes # (Manual) 0.7 10^3/uL (0.0-1.0) 04/17/18 03:05 Eosinophils # (Manual) 0.1 10^3/uL (0-0.7) 04/17/18 03:05 Basophils # (Manual) 0.0 10^3/uL (0-0.1) 04/17/18 03:05 Differential Comment MANUAL DIFFERENTIAL 04/17/18 03:05 Manual Slide Review Indicated 04/19/18 12:04 WBC Morphology 2+ VACUOLA (NORMAL) 04/15/18 13:09 Platelet Estimate DECREASED (<130,000) (NORMAL) 04/17/18 03:05 Platelet Morphology NORMAL APPEARANCE (NORMAL) 04/15/18 13:09 RBC Morph Micro Appear 2+ ANISOCYTOSIS (NORMAL) 04/19/18 12:04 VBG pH 7.356 (7.31-7.41) 04/20/18 05:07 Ionized Calcium 1.06 mmol/L (1.15-1.33) L 04/20/18 05:07 Sodium 140 mmol/L (135-145) 04/24/18 04:40 Potassium 3.2 mmol/L (3.5-5.0) L 04/24/18 04:40 Chloride 114 mmol/L (101-111) H 04/24/18 04:40 Carbon Dioxide 20 mmol/L (21-32) L 04/24/18 04:40 Anion Gap 6.0 (6-13) 04/24/18 04:40 BUN 18 mg/dL (6-20) 04/24/18 04:40 Creatinine 0.7 mg/dL (0.4-1.0) 04/24/18 04:40 Estimated GFR (MDRD) 79 (>89) L 04/24/18 04:40 Glucose 112 mg/dL (70-100) H 04/24/18 04:40 Glycated Hemoglobin 6.5 % (4.6-6.2) H 04/15/18 16:49 Estim Average Glucose 140 (70-100) H 04/15/18 16:49 Lactic Acid 1.8 mmol/L (0.5-2.2) 04/21/18 11:32 Calcium 7.7 mg/dL (8.5-10.3) L 04/24/18 04:40 Ionized Calcium YES 04/20/18 05:07 Phosphorus 3.8 mg/dL (2.5-4.6) 04/24/18 04:40 Magnesium 2.3 mg/dL (1.7-2.8) 04/23/18 04:10 Total Bilirubin 0.5 mg/dL (0.2-1.0) 04/20/18 05:07 AST 42 IU/L (10-42) 04/20/18 05:07 ALT 47 IU/L (10-60) 04/20/18 05:07 Alkaline Phosphatase 70 IU/L (42-121) 04/20/18 05:07 Troponin I 0.46 ng/mL (<0.49) 04/16/18 03:10 B-Natriuretic Peptide 697 pg/mL (5-100) H 04/20/18 05:07 Total Protein 5.5 g/dL (6.7-8.2) L 04/20/18 05:07 Albumin 1.9 g/dL (3.2-5.5) L 04/22/18 04:35 Globulin 3.4 g/dL (2.1-4.2) 04/20/18 05:07 Albumin/Globulin Ratio 0.6 (1.0-2.2) L 04/20/18 05:07 Lipase 22 U/L (22-51) 04/15/18 13:09 TSH 2.90 uIU/mL (0.34-5.60) 04/16/18 03:10 Free T4 0.71 ng/dL (0.58-1.64) 04/24/18 04:40 Free T3 pg/mL 2.07 pg/mL (2.5-3.9) L 04/24/18 04:40 Urine Color YELLOW 04/20/18 10:30 Urine Clarity CLEAR (CLEAR) 04/20/18 10:30 Urine pH 6.0 PH (5.0-7.5) 04/20/18 10:30 Ur Specific [place] 1.010 (1.002-1.030) 04/20/18 10:30 Urine Protein NEGATIVE mg/dL (NEGATIVE) 04/20/18 10:30 Urine Glucose (UA) NEGATIVE mg/dL (NEGATIVE) 04/20/18 10:30 Urine Ketones NEGATIVE mg/dL (NEGATIVE) 04/20/18 10:30 Urine Occult Blood TRACE-INTA (NEGATIVE) 04/20/18 10:30 Urine Nitrite NEGATIVE (NEGATIVE) 04/20/18 10:30 Urine Bilirubin NEGATIVE (NEGATIVE) 04/20/18 10:30 Urine Urobilinogen 0.2 (NORMAL) E.U./dL (NORMAL) 04/20/18 10:30 Ur Leukocyte Esterase NEGATIVE (NEGATIVE) 04/20/18 10:30 Urine RBC 0-5 /HPF (0-5) 04/15/18 13:04 Urine WBC 0-3 /HPF (0-5) 04/15/18 13:04 Ur Squamous Epith Cells MOD Squamous (<= Few) H 04/15/18 13:04 Urine Bacteria Few /HPF (None Seen) 04/15/18 13:04 Urine Mucus Few Strands 04/15/18 13:04 Ur Microscopic Review NOT INDICATED 04/20/18 10:30 Urine Culture Comments NOT INDICATED 04/20/18 10:30 Last Dose Date 04/21/18 04/22/18 13:35 Last Dose Time 1400 04/22/18 13:35 Vancomycin Trough 17.9 ug/mL (10.0-20.0) 04/22/18 13:35
[2018-04-24] MEDS: ACETAMINOPHEN 325 MG TABLET PO PRN (17:03)
[2018-04-24] MEDS: METOPROLOL SUCCINATE 50 MG TABLET PO SCH (17:03)
[2018-04-24] MEDS: ASPIRIN EC 81 MG TABLET PO SCH (21:49)
[2018-04-24] MEDS: COD LIVER OIL/ZINC OXIDE 113 GM TUBE TOP PRN (21:50)
[2018-04-25] MEDS: ACETAMINOPHEN 325 MG TABLET PO PRN ×2 (00:42→13:48)
[2018-04-25] MEDS: SODIUM CHLORIDE FLUSH 0.9% 10 ML SYRINGE IVP SCH ×2 (00:49→08:09)
[2018-04-25 05:37] LABS: BASOPHILS # (AUTO) 0.1 10^3/uL (0.0-0.1); BASOPHILS % (AUTO) 0.6 %; EOSINOPHILS # (AUTO) 0.1 10^3/uL (0.0-0.7); EOSINOPHILS % (AUTO) 0.5 %; HGB - HEMOGLOBIN 12.3 g/dL (12.0-16.0); LYMPHOCYTES % (AUTO) 7.7 %; MEAN CORPUSCULAR HEMOGLOBIN 31.5 pg (27.0-31.0); MEAN CORPUSCULAR HGB CONC 32.6 g/dL (32.0-36.0); MEAN CORPUSCULAR VOLUME 96.6 fL (81.0-99.0); MEAN PLATELET VOLUME 8.2 fL (7.9-10.8); MONOCYTES # (AUTO) 1.1 10^3/uL (0.0-1.0); MONOCYTES % (AUTO) 8.9 %; NEUTROPHILS # (AUTO) 10.4 10^3/uL (1.5-6.6); NEUTROPHILS % (AUTO) 82.3 %; PLT - PLATELET COUNT 212 10^3/uL (130-450); RED CELL DISTRIBUTION WIDTH 16.1 % (12.0-15.0); WHITE BLOOD COUNT 12.7 x10^3/uL (4.8-10.8)
[2018-04-25 05:56] LABS: CALCIUM 7.8 mg/dL (8.5-10.3); CREATININE 0.7 mg/dL (0.4-1.0); PHOSPHORUS 3.7 mg/dL (2.5-4.6)
[2018-04-25] MEDS: SODIUM CHLORIDE FLUSH 0.9% 10 ML SYRINGE IVP PRN ×2 (06:44→06:53)
[2018-04-25] MEDS: LEVOTHYROXINE 25 MCG TABLET PO SCH (06:44)
[2018-04-25] MEDS: PANTOPRAZOLE 40 MG VIAL IVP SCH (06:44)
[2018-04-25] MEDS: POTASSIUM CHLORIDE 20 MEQ TABLET PO SCH (08:06)
[2018-04-25] MEDS: ENOXAPARIN 40 MG/0.4 ML SYRINGE SUBQ SCH (08:06)
[2018-04-25] MEDS: THIAMINE 100 MG TABLET PO SCH (08:06)
[2018-04-25] MEDS: SACCHAROMYCES BOULARDII 250 MG CAPSULE PO SCH (08:07)
--- NOTE | 2018-04-25 08:44 | Discharge Plan ---
"Discharge Plan for SNF / [facility] - DC Plan and Transition Orders Disposition: 03 SNF DC/Xfer Condition: Stable SNF Transition Orders: Admit to: [facility] under the care of Dr Del Rosario Discharge Diagnosis: 1) Septic shock due to bacteremia 2) Bacteremia from Group G Strep (S/P 7 days of Vancomycin iv, changed to oral Clindamycin on 04/25/18 for a 7 day course) 3) Left leg cellulitis 4) Metabolic encephalopathy (possibly due to brain hypoperfusion during septic shock) 5) Chronic Afib (on Aspirin) 6) S/P bioprosthetic AVR 7) Chronic systolic heart failure (LVEF 40% by Echo this admission) 8) HTN 9) Hypothyroidism 10) Hypokalemia (despite no diuretic use) 11) Dementia (statin was stopped during this admission) 12) Code Status: Full Code Medicare Certification: I certify that [facility] long-term care is medically necessary on a continuing basis for any of the conditions for which she/he is receiving care during hospitalization. Notify PCP of admission and forward orders to primary provider for signature. Weight on admission and daily. Call PCP immediately if weight increases by 5 pounds or if patient develops dyspnea, chest pain/tightness or edema. House Bowel Program: Yes If no BM after 2 days, nurse may give M.O.M. 30ml PO PRN and /or ducolax Supp 1 HI and /or RUMA 250mg P.O., and/or senna 1-2 tabs PO. On day 3 nurse may give repeat above order until residents constipation is resolved. Immunizations: Annual Influenza Vaccine: yes. (between Jun 06 and January 03.) Unless allergy or already given Two-Step PPD: Yes per [place] [id number] or appropriate documentation of approved exceptions Treatments & Other Orders: Daily PT and OT Oxygen Orders: No Lab Tests or X-Rays Orders: [facility] daily Orthopedic Orders: None. Medications: PLEASE REFER TO THE DISCHARGE MEDICATION LIST. Insulin Orders? No ( Allergies and Adverse Reactions: Allergies Allergy/AdvReac Type Severity Reaction Status Date / Time Sulfa (Sulfonamide Allergy Unknown Verified 04/15/18 12:06 Antibiotics) - Medications New Prescriptions: Clindamycin [Cleocin] 450 mg PO TID 7 Days #63 capsule diltiaZEM [Cardizem] 60 mg PO BID #60 tablet Lisinopril [Zestril] 5 mg PO 1200 #30 tablet Metoprolol Succinate [Toprol Xl] 100 mg PO QDDINNER #30 tablet Potassium Chloride [K-Dur] 20 meq PO BID #60 tablet Thiamine [Vitamin B-1] 100 mg PO DAILY #30 tablet - Diet Type: Geriatric Texture: Dysphagia mech Liquids: Thin May have monthly special meal: Yes - Therapies | Activity Therapy: Evaluation | Treat if indicated: Speech, PT, OT, Swallowing / ST Rehabilitation Potential: Maximize functional status Activity: Activity as Tolerated Weight Bearing: Full Weight"
[2018-04-25] MEDS ORDERED: POTASSIUM CHLORIDE 20 MEQ TABLET PO SCH (09:00)
[2018-04-25] MEDS ORDERED: POTASSIUM CHLOR 10 MEQ/100 ML 10 MEQ/100 ML BAG IV SCH (09:00)
[2018-04-25] MEDS ORDERED: THIAMINE 100 MG TABLET PO SCH (09:00)
[2018-04-25] MEDS: CLINDAMYCIN 150 MG CAPSULE PO SCH ×2 (09:19→13:47)
[2018-04-25] MEDS: MINERAL OIL/HYDROPHIL PETROLAT 454 GM JAR TOP SCH (11:31)
[2018-04-25] MEDS: CLOTRIMAZOLE 1% CREAM 15 GM TUBE TOP SCH (11:31)
[2018-04-25] MEDS: LISINOPRIL 5 MG TABLET PO SCH (13:02)
[2018-04-25] MEDS ORDERED: CALCIUM CARBONATE CHEW 500 MG TABLET PO PRN (13:43)
[2018-04-25 14:14] VITALS: BP 138/54
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
== END 2018-04-25 14:30 | DRG 871 ==
LOC: EDUNIT# → ED 10:50 → MS3 16:28 → ICU 04-16 07:39 → MS3 04-23 17:51
PROVIDERS: ADMIT Internal Medicine; ATTEND Internal Medicine
PROC: 02HV33Z Insertion of Infusion Device into Superior Vena Cava, Percutaneous Approach (ICD-10-PCS; principal; 2018-04-16)
DX: A40.8 Other streptococcal sepsis (principal); R65.21 Severe sepsis with septic shock; G93.41 Metabolic encephalopathy; L03.116 Cellulitis of left lower limb; I50.22 Chronic systolic (congestive) heart failure; N17.9 Acute kidney failure, unspecified; K52.1 Toxic gastroenteritis and colitis; T36.1X5A Adverse effect of cephalosporins and other beta-lactam antibiotics, initial encounter; E86.9 Volume depletion, unspecified; I48.2 Chronic atrial fibrillation; I11.0 Hypertensive heart disease with heart failure; E03.9 Hypothyroidism, unspecified; E87.6 Hypokalemia; A41.9 Sepsis, unspecified organism; E78.5 Hyperlipidemia, unspecified; M19.90 Unspecified osteoarthritis, unspecified site; R73.9 Hyperglycemia, unspecified; R79.89 Other specified abnormal findings of blood chemistry; Y92.230 Patient room in hospital as the place of occurrence of the external cause; F03.90 Unspecified dementia, unspecified severity, without behavioral disturbance, psychotic disturbance, mood disturbance, and anxiety; Z79.899 Other long term (current) drug therapy; Z95.2 Presence of prosthetic heart valve; Z87.891 Personal history of nicotine dependence; Z86.73 Personal history of transient ischemic attack (TIA), and cerebral infarction without residual deficits; Z85.3 Personal history of malignant neoplasm of breast; Z79.82 Long term (current) use of aspirin
CPT/HCPCS: 36415; 70450; 71045; 71046; 71275; 80048; 80053; 80202; 81001; 81003; 82040; 82330; 83036; 83605; 83690; 83735; 83880; 84100; 84439; 84443; 84481; 84484; 85025; 87040; 87086; 87150; 87181; 87493; 93005; 93306; 96374; 96375; 99284; 99285

== ENCOUNTER 2018-04-27 08:00 | Outpatient (CLI) | payer OTHER, MEDICARE ==
[2018-04-27 13:34] LABS: BASOPHILS # (AUTO) 0.1 10^3/uL (0.0-0.1); BASOPHILS % (AUTO) 0.8 %; EOSINOPHILS % (AUTO) 0.3 %; HGB - HEMOGLOBIN 12.5 g/dL (12.0-16.0); LYMPHOCYTES % (AUTO) 7.6 %; MEAN CORPUSCULAR HEMOGLOBIN 31.8 pg (27.0-31.0); MEAN CORPUSCULAR HGB CONC 32.7 g/dL (32.0-36.0); MEAN CORPUSCULAR VOLUME 97.4 fL (81.0-99.0); MEAN PLATELET VOLUME 8.6 fL (7.9-10.8); MONOCYTES % (AUTO) 7.7 %; NEUTROPHILS # (AUTO) 10.6 10^3/uL (1.5-6.6); NEUTROPHILS % (AUTO) 83.6 %; PLT - PLATELET COUNT 190 10^3/uL (130-450); RED BLOOD COUNT 3.92 10^6/uL (4.20-5.40); WHITE BLOOD COUNT 12.6 x10^3/uL (4.8-10.8)
[2018-04-27 13:44] LABS: CALCIUM 7.8 mg/dL (8.5-10.3); CREATININE 0.9 mg/dL (0.4-1.0)
== END 2018-04-27 08:01 | disposition home or self-care (01) ==
LOC: LAB.R 08:00
DX: A41.9 Sepsis, unspecified organism (principal)
CPT/HCPCS: 80048; 85025

== ENCOUNTER 2018-04-28 08:00 | Outpatient (CLI) | payer MEDICARE, OTHER ==
[2018-04-28 20:20] LABS: CALCIUM 7.7 mg/dL (8.5-10.3); CREATININE 0.8 mg/dL (0.4-1.0)
== END 2018-04-28 08:01 | disposition home or self-care (01) ==
LOC: LAB.R 08:00
DX: E87.6 Hypokalemia (principal)
CPT/HCPCS: 80048

== ENCOUNTER 2018-04-29 08:00 | Outpatient (CLI) | payer MEDICARE ==
[2018-04-29 10:10] LABS: CALCIUM 7.5 mg/dL (8.5-10.3); CREATININE 0.8 mg/dL (0.4-1.0)
== END 2018-04-29 08:01 ==
LOC: LAB.R 08:00
DX: A41.9 Sepsis, unspecified organism (principal)
CPT/HCPCS: 80048

== ENCOUNTER 2018-05-05 14:25 | Outpatient (CLI) | payer OTHER, MEDICARE ==
[2018-05-05 18:32] LABS: CALCIUM 7.9 mg/dL (8.5-10.3); CREATININE 0.9 mg/dL (0.4-1.0)
== END 2018-05-05 14:26 | disposition home or self-care (01) ==
LOC: LAB.R 14:25
DX: E87.6 Hypokalemia (principal)
CPT/HCPCS: 80048

== ENCOUNTER 2018-05-23 18:46 | Outpatient (CLI) | payer MEDICARE | END 2018-05-23 18:47 | disposition critical access hospital (66) | LOC: EMS 18:46 | PROVIDERS: ATTEND Surgery | DX: R42 Dizziness and giddiness (principal); R10.9 Unspecified abdominal pain; R09.89 Other specified symptoms and signs involving the circulatory and respiratory systems ==

== ENCOUNTER 2018-05-23 18:50 | Emergency (ER) | payer MEDICARE ==
--- NOTE | 2018-05-23 19:15 | ED Physician Documentation ---
History of Present Illness - Stated complaint Stated Complaint: DIZZY - Chief complaint Chief Complaint: Cardiac - History obtained from History obtained from: Patient, Family, EMS - History of Present Illness Timing: Today Pain level max: 0 Pain level now: 0 Improved by: nothing Worsened by: nothing - Additonal information Additional information: Patient is an 87-year-old female who is brought over from [facility] today for dizziness. Her heart rate was found to be low as well. Received atropine 2 with EMS with no change in her heart rate. No changes in her medications that are known. Does have history of dementia. Is full code. 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: Breast cancer : None HEENT: None Psych: None Musculoskeletal: Osteoarthritis Derm: None - Past Surgical History Past Surgical History: Yes Ortho: Arthroscopic surgery, Other /COMPUTER ARCHITECT: Hysterectomy - Present Medications Home Medications: Ambulatory Orders Medication Instructions Recorded Confirmed Clotrimazole [Clotrimazole AF] 1 applic TOP DAILY 04/15/18 04/15/18 Aspirin [Aspirin EC] 81 mg PO DAILY #0 04/25/18 04/15/18 Clindamycin [Cleocin] 450 mg PO TID 7 Days #63 capsule 04/25/18 Diphenoxylate/Atropine [Lomotil] 1 each PO QID PRN #40 tablet 04/25/18 Levothyroxine Sodium 50 mcg PO QDAC #0 04/25/18 04/15/18 Lisinopril [Zestril] 5 mg PO 1200 #30 tablet 04/25/18 Metoprolol Succinate [Toprol Xl] 100 mg PO QDDINNER #30 tablet 04/25/18 Potassium Chloride [K-Dur] 20 meq PO BID #60 tablet 04/25/18 Thiamine [Vitamin B-1] 100 mg PO DAILY #30 tablet 04/25/18 diltiaZEM [Cardizem] 60 mg PO BID #60 tablet 04/25/18 - Allergies Allergies/Adverse Reactions: Allergies Allergy/AdvReac Type Severity Reaction Status Date / Time Sulfa (Sulfonamide Allergy Unknown Verified 05/23/18 19:01 Antibiotics) - Social History Does the pt smoke?: No Smoking Status: Never smoker Does the pt drink ETOH?: No Does the pt have substance abuse?: No - Immunizations Immunizations are current?: Yes - POLST Patient has POLST: No POLST Status: Full Code PD ED PE NORMAL - Vitals Vital signs reviewed: Yes - General General: Other (drowsy, arousable) - HEENT HEENT: PERRL, Moist mucous membranes - Neck Neck: Supple, no meningeal sign - Cardiac Cardiac: Other (slow rate) - Respiratory Respiratory: No respiratory distress, Clear bilaterally - Abdomen Abdomen: Soft, Non tender, Non distended - Derm Derm: Warm and dry - Extremities Extremities: No calf tenderness / cord - Neuro Neuro: Other (drowsy, arousable) Results - Vitals Vitals: Vital Signs - 24 hr 05/23/18 05/23/18 05/23/18 18:54 19:00 19:18 Temperature 35.3 C L Heart Rate 58 L 56 L 55 L Respiratory 28 H 61 H 20 Rate Blood Pressure 111/67 123/64 115/48 L O2 Saturation 88 L 100 100 05/23/18 05/23/18 05/23/18 19:32 19:46 20:00 Temperature Heart Rate 54 L 50 L 49 L Respiratory 22 21 20 Rate Blood Pressure 103/65 116/55 L 106/57 L O2 Saturation 98 100 96 05/23/18 05/23/18 05/23/18 20:28 20:55 21:13 Temperature Heart Rate 54 L 60 62 Respiratory 18 23 15 Rate Blood Pressure 106/45 L 103/56 L 98/43 L O2 Saturation 98 100 100 05/23/18 05/23/18 05/23/18 21:46 22:01 22:34 Temperature 36.0 C L Heart Rate 69 69 75 Respiratory 17 18 19 Rate Blood Pressure 101/62 146/69 H 124/39 L O2 Saturation 100 100 100 05/23/18 05/23/18 22:47 23:18 Temperature Heart Rate 72 75 Respiratory 21 14 Rate Blood Pressure 116/49 L 144/65 H O2 Saturation 100 100 Oxygen O2 Source [] Room air O2 Source Room air - EKG (time done) 1904 Rate: Rate (enter#) (58) Rhythm: Atrial fibrillation [place]: Normal Intervals: RBBB 2114 Rate: Rate (enter#) (73) Rhythm: Atrial fibrillation [place]: Normal Intervals: Wide QRS Ischemia: Normal ST segments Compare to prior EKG: Changed from prior EKG - Labs Labs: Laboratory Tests 05/23/18 05/23/18 05/23/18 19:17 19:17 19:17 WBC 12.0 H RBC 4.00 L Hgb 12.6 Hct 38.6 MCV 96.6 MCH 31.4 H MCHC 32.5 RDW 17.6 H Plt Count 286 MPV 7.6 L Neut # (Auto) Not Reportable Lymph # (Auto) Not Reportable [place] # (Auto) Not Reportable Eos # (Auto) Not Reportable Baso # (Auto) Not Reportable Absolute Nucleated RBC Not Reportable Total Counted 100 Band Neuts % (Manual) 14 H Abnorm Lymph % (Manual) 0 Metamyelocytes % 1 H Nucleated RBC % Not Reportable Neutrophils # (Manual) 9.8 H Lymphocytes # (Manual) 1.6 Monocytes # (Manual) 0.4 Eosinophils # (Manual) 0.0 Basophils # (Manual) 0.1 Differential Comment MANUAL DIFFERENTIAL Platelet Estimate NORMAL (130-450,000) Platelet Morphology NORMAL APPEARANCE RBC Morph Micro Appear 2+ POIKILOCYTOSIS Sodium 124 L Potassium 7.9 H* Chloride 100 L Carbon Dioxide 16 L Anion Gap 8.0 BUN 39 H Creatinine 1.7 H Estimated GFR (MDRD) 28 L Glucose 202 H Calcium 8.4 L Phosphorus 5.2 H Magnesium 2.1 Total Bilirubin 0.7 AST 40 ALT 66 H Alkaline Phosphatase 99 Troponin I < 0.04 Total Protein 7.1 Albumin 3.0 L Globulin 4.1 Albumin/Globulin Ratio 0.7 L Lipase 43 05/23/18 05/23/18 05/23/18 20:01 21:50 23:14 WBC RBC Hgb Hct MCV MCH MCHC RDW Plt Count MPV Neut # (Auto) Lymph # (Auto) [place] # (Auto) Eos # (Auto) Baso # (Auto) Absolute Nucleated RBC Total Counted Band Neuts % (Manual) Abnorm Lymph % (Manual) Metamyelocytes % Nucleated RBC % Neutrophils # (Manual) Lymphocytes # (Manual) Monocytes # (Manual) Eosinophils # (Manual) Basophils # (Manual) Differential Comment Platelet Estimate Platelet Morphology RBC Morph Micro Appear Sodium 129 L 129 L Potassium 7.3 H* 6.8 H* 6.0 H* Chloride 105 105 Carbon Dioxide 17 L 19 L Anion Gap 7.0 5.0 L BUN 37 H 34 H Creatinine 1.3 H 1.3 H Estimated GFR (MDRD) 39 L 39 L Glucose 178 H 206 H Calcium 8.5 8.2 L Phosphorus Magnesium Total Bilirubin AST ALT Alkaline Phosphatase Troponin I Total Protein Albumin Globulin Albumin/Globulin Ratio Lipase - Rads (name of study) cxr Radiology: Prelim report reviewed, EMP read contemporaneously, See rad report ( Hypoinflation with mild left base atelectasis/scarring. Cardiomegaly without CHF. ) PD MEDICAL DECISION MAKING - ED course Complexity details: reviewed old records, reviewed results, re-evaluated patient , considered differential, d/w patient, d/w family, d/w workforce consultant ED course: Patient is an 87-year-old female who presents with bradycardia tonight, heart rate was down into the upper 20s, lower 30s upon arrival. Her potassium came back elevated and she was given calcium gluconate, insulin, glucose as well as IV fluids. Potassium continued to decrease. Her QRS duration decreased and heart rate stabilized in the 60s-70s, though still in atrial fibrillation. When her potassium was elevated she would have episodes of missed beats on her telemetry. Will transfer the patient to [facility] for further evaluation and care. She is full code. Discussed with Pinky Rosenberg who will find a bed at [facility]. Dr. Correa graciously accepts in transfer to [facility] at 2240. This document was made in part using voice recognition software. While efforts are made to proofread this document, sound alike and grammatical errors may occur. - Sepsis Event Vital Signs: Vital Signs - 24 hr 05/23/18 05/23/18 05/23/18 18:54 19:00 19:18 Temperature 35.3 C L Heart Rate 58 L 56 L 55 L Respiratory 28 H 61 H 20 Rate Blood Pressure 111/67 123/64 115/48 L O2 Saturation 88 L 100 100 05/23/18 05/23/18 05/23/18 19:32 19:46 20:00 Temperature Heart Rate 54 L 50 L 49 L Respiratory 22 21 20 Rate Blood Pressure 103/65 116/55 L 106/57 L O2 Saturation 98 100 96 05/23/18 05/23/18 05/23/18 20:28 20:55 21:13 Temperature Heart Rate 54 L 60 62 Respiratory 18 23 15 Rate Blood Pressure 106/45 L 103/56 L 98/43 L O2 Saturation 98 100 100 05/23/18 05/23/18 05/23/18 21:46 22:01 22:34 Temperature 36.0 C L Heart Rate 69 69 75 Respiratory 17 18 19 Rate Blood Pressure 101/62 146/69 H 124/39 L O2 Saturation 100 100 100 05/23/18 05/23/18 22:47 23:18 Temperature Heart Rate 72 75 Respiratory 21 14 Rate Blood Pressure 116/49 L 144/65 H O2 Saturation 100 100 Oxygen O2 Source [] Room air O2 Source Room air Departure - Departure Disposition: 02 Transfer Acute Care Hosp Clinical Impression: Bradycardia, Hyperkalemia, Acute renal insufficiency, Dehydration, Hyponatremia Atrial fibrillation Qualifiers: Atrial fibrillation type: chronic Qualified Code(s): I48.2 - Chronic atrial fibrillation Condition: Stable Discharge Date/Time: 05/23/18 23:51
[2018-05-23 19:24] LABS: BASOPHILS % (AUTO) 1.2 %; HGB - HEMOGLOBIN 12.6 g/dL (12.0-16.0); LYMPHOCYTES % (AUTO) 15.6 %; MEAN CORPUSCULAR HEMOGLOBIN 31.4 pg (27.0-31.0); MEAN CORPUSCULAR HGB CONC 32.5 g/dL (32.0-36.0); MEAN CORPUSCULAR VOLUME 96.6 fL (81.0-99.0); MEAN PLATELET VOLUME 7.6 fL (7.9-10.8); NEUTROPHILS % (AUTO) 73.2 %; PLT - PLATELET COUNT 286 10^3/uL (130-450); RED CELL DISTRIBUTION WIDTH 17.6 % (12.0-15.0)
[2018-05-23 19:28] LABS: ABNORMAL LYMPHS % (MANUAL) 0 %
--- NOTE | 2018-05-23 19:38 | XRAY Report ---
Procedure Date: 05/23/2018 Accession Number: [id number] / [id number] Procedure: XR - Chest 1 View X-Ray CPT Code: 70569 FULL RESULT: EXAM: CHEST RADIOGRAPHY EXAM DATE: 05/23/2018 07:24 PM. CLINICAL HISTORY: Chest pain. Bradycardia. Syncope. COMPARISON: CHEST 1 VIEW 04/20/2018 10:54 AM. TECHNIQUE: 1 view. FINDINGS: Lungs/Pleura: Hypoinflated lungs with mild linear opacities at the left base, otherwise no focal opacities evident. No pleural effusion. No pneumothorax. Mediastinum: Large heart. Calcified aorta. Other: No fractures identified. IMPRESSION: 1. Hypoinflation with mild left base atelectasis/scarring. 2. Cardiomegaly without CHF. RADIA
[2018-05-23 19:46] LABS: ALBUMIN/GLOBULIN RATIO 0.7 (1.0-2.2); BILIRUBIN,TOTAL 0.7 mg/dL (0.2-1.0); CALCIUM 8.4 mg/dL (8.5-10.3); CREATININE 1.7 mg/dL (0.4-1.0); MAGNESIUM 2.1 mg/dL (1.7-2.8); PHOSPHORUS 5.2 mg/dL (2.5-4.6); TOTAL PROTEIN 7.1 g/dL (6.7-8.2)
[2018-05-23] MEDS ORDERED: DEXTROSE 50% ABBOJECT 25 GM/50 ML SYRINGE IVP STA ×2 (19:48→22:27)
[2018-05-23] MEDS ORDERED: SODIUM CHLORIDE 0.9% 1,000 ML IV ONE ×4 (19:48→19:51)
[2018-05-23] MEDS ORDERED: INSULIN REGULAR HUMAN 100 UNIT/1 ML 10 ML MDV IVP STA ×2 (19:48→22:27)
[2018-05-23] MEDS ORDERED: SODIUM POLYSTYRENE SULFONATE 15 GM/60 ML BOTTLE PR STA (19:50)
[2018-05-23 19:56] LABS: BAND NEUTROPHILS % (MANUAL) 14 %; BASOPHILS # (MANUAL) 0.1 10^3/uL (0-0.1); BASOPHILS % (MANUAL) 1 %; LYMPHOCYTES # (MANUAL) 1.6 10^3/uL (1.5-3.5); LYMPHOCYTES % (MANUAL) 13 %; METAMYELOCYTES % (MANUAL) 1 %; MONOCYTES # (MANUAL) 0.4 10^3/uL (0.0-1.0); NEUTROPHILS # (MANUAL) 9.8 10^3/uL (1.5-6.6); NEUTROPHILS % (MANUAL) 68 %
[2018-05-23 19:57] LABS: DIFFERENTIAL COMMENT MANUAL DIFFERENTIAL; PLATELET ESTIMATE, MANUAL NORMAL (130-450,000) (NORMAL); PLATELET MORPHOLOGY NORMAL APPEARANCE (NORMAL)
[2018-05-23] MEDS ORDERED: CALCIUM GLUCONATE 1,000 MG in SODIUM CHLORIDE 0.9% 50 ML IV STA (19:58)
[2018-05-23 22:12] LABS: CALCIUM 8.5 mg/dL (8.5-10.3); CREATININE 1.3 mg/dL (0.4-1.0)
[2018-05-23] MEDS ORDERED: SODIUM CHLORIDE 0.9% 500 ML IV ONE (22:44)
[2018-05-23 23:18] VITALS: BP 144/65
[2018-05-23 23:41] LABS: CALCIUM 8.2 mg/dL (8.5-10.3); CREATININE 1.3 mg/dL (0.4-1.0)
== END 2018-05-23 23:51 | disposition short-term general hospital (02) ==
LOC: EDUNIT# → ED 18:50
DX: R00.1 Bradycardia, unspecified (principal); E87.5 Hyperkalemia; N28.9 Disorder of kidney and ureter, unspecified; E86.0 Dehydration; E87.1 Hypo-osmolality and hyponatremia; I45.10 Unspecified right bundle-branch block; I48.91 Unspecified atrial fibrillation; I10 Essential (primary) hypertension
CPT/HCPCS: 36415; 71045; 80048; 80053; 83690; 83735; 84100; 84132; 84484; 85025; 92953; 93005; 99285; A9270; J1815; J7040

== ENCOUNTER 2018-05-23 23:35 | Outpatient (CLI) | payer MEDICARE | END 2018-05-23 23:36 | disposition short-term general hospital (02) | LOC: EMS 23:35 | PROVIDERS: ATTEND Surgery | DX: E87.5 Hyperkalemia (principal); R00.1 Bradycardia, unspecified | CPT/HCPCS: A0425; A0426; A0427 ==

== ENCOUNTER 2018-06-01 15:40 | Outpatient (CLI) | payer MEDICARE, OTHER ==
[2018-06-01 18:22] LABS: PT - PROTHROMBIN TIME 51.3 secs (9.9-12.6)
[2018-06-01 18:35] LABS: INR 4.8 (0.8-1.2)
== END 2018-06-01 15:41 | disposition home or self-care (01) ==
LOC: LAB.R 15:40
PROVIDERS: ATTEND Internal Medicine
DX: I48.0 Paroxysmal atrial fibrillation (principal)
CPT/HCPCS: 85610

== ENCOUNTER 2018-06-09 12:40 | Outpatient (CLI) | payer MEDICARE ==
[2018-06-09 18:07] LABS: CALCIUM 8.7 mg/dL (8.5-10.3); CREATININE 0.9 mg/dL (0.4-1.0)
== END 2018-06-09 12:41 ==
LOC: LAB.R 12:40
PROVIDERS: ATTEND Internal Medicine
DX: E87.5 Hyperkalemia (principal)
CPT/HCPCS: 80048

== ENCOUNTER 2018-07-08 08:23 | Outpatient (CLI) | payer MEDICARE | END 2018-07-08 08:24 | disposition home or self-care (01) | LOC: LAB.F 08:23 | PROVIDERS: ATTEND Internal Medicine | DX: I48.91 Unspecified atrial fibrillation (principal); Z79.01 Long term (current) use of anticoagulants | CPT/HCPCS: 85610 ==

== ENCOUNTER 2018-08-05 08:58 | Outpatient (CLI) | payer MEDICARE | END 2018-08-05 08:59 | disposition home or self-care (01) | LOC: LAB.F 08:58 | PROVIDERS: ATTEND Internal Medicine | DX: I48.91 Unspecified atrial fibrillation (principal); Z79.01 Long term (current) use of anticoagulants | CPT/HCPCS: 85610 ==

== ENCOUNTER 2018-08-19 07:23 | Outpatient (CLI) | payer MEDICARE ==
[2018-08-19 10:47] LABS: INR 2.5 (0.8-1.2); PT - PROTHROMBIN TIME 28.2 secs (9.9-12.6)
== END 2018-08-19 07:24 | disposition home or self-care (01) ==
LOC: LAB.F 07:23
PROVIDERS: ATTEND Internal Medicine
DX: I48.91 Unspecified atrial fibrillation (principal); Z79.01 Long term (current) use of anticoagulants
CPT/HCPCS: 36415; 85610

== ENCOUNTER 2018-09-17 07:41 | Outpatient (CLI) | payer MEDICARE | END 2018-09-17 07:42 | disposition home or self-care (01) | LOC: LAB.F 07:41 | PROVIDERS: ATTEND Internal Medicine | DX: I48.91 Unspecified atrial fibrillation (principal); Z79.01 Long term (current) use of anticoagulants | CPT/HCPCS: 85610 ==

== ENCOUNTER 2018-10-01 07:57 | Outpatient (CLI) | payer MEDICARE | END 2018-10-01 07:58 | disposition home or self-care (01) | LOC: LAB.F 07:57 | PROVIDERS: ATTEND Internal Medicine | DX: I48.91 Unspecified atrial fibrillation (principal); Z79.01 Long term (current) use of anticoagulants | CPT/HCPCS: 85610 ==

== ENCOUNTER 2018-10-15 07:54 | Outpatient (CLI) | payer MEDICARE | END 2018-10-15 07:55 | disposition home or self-care (01) | LOC: LAB.F 07:54 | PROVIDERS: ATTEND Internal Medicine | DX: I48.91 Unspecified atrial fibrillation (principal); Z79.01 Long term (current) use of anticoagulants | CPT/HCPCS: 85610 ==

== ENCOUNTER 2018-11-03 07:41 | Outpatient (CLI) | payer MEDICARE ==
[2018-11-03 10:40] LABS: ALBUMIN 3.4 g/dL (3.2-5.5); ALKALINE PHOSPHATASE 76 IU/L (42-121); ALT ALANINE AMINOTRANSFERASE 23 IU/L (10-60); AST ASPARTATE AMINOTRANSFERASE 27 IU/L (10-42); BILIRUBIN,TOTAL 0.9 mg/dL (0.2-1.0); BUN - BLOOD UREA NITROGEN 16 mg/dL (6-20); CALCIUM 8.9 mg/dL (8.5-10.3); CARBON DIOXIDE - CO2 28 mmol/L (21-32); CHLORIDE 103 mmol/L (101-111); CHOL/HDL RATIO 3.2 (<4.4); CHOLESTEROL 133 mg/dL; CREATININE 0.8 mg/dL (0.4-1.0); DIGOXIN 0.2 ng/mL; GFR - MDRD 68 (>89); GLUCOSE 101 mg/dL (70-100); HDL CHOLESTEROL 41 mg/dL; LDL CHOLESTEROL,CALCULATED 79 mg/dL; LDL/HDL RATIO 1.9 (<4.4); SODIUM 138 mmol/L (135-145); TOTAL PROTEIN 6.8 g/dL (6.7-8.2); VLDL CHOLESTEROL 13 mg/dL
[2018-11-03 10:44] LABS: BASOPHILS # (AUTO) 0.1 10^3/uL (0.0-0.1); BASOPHILS % (AUTO) 1.7 %; EOSINOPHILS # (AUTO) 0.2 10^3/uL (0.0-0.7); EOSINOPHILS % (AUTO) 3.1 %; LYMPHOCYTES # (AUTO) 2.1 10^3/uL (1.5-3.5); LYMPHOCYTES % (AUTO) 26.6 %; MEAN CORPUSCULAR HEMOGLOBIN 31.7 pg (27.0-31.0); MEAN CORPUSCULAR VOLUME 93.1 fL (81.0-99.0); MEAN PLATELET VOLUME 9.2 fL (7.9-10.8); MONOCYTES # (AUTO) 0.8 10^3/uL (0.0-1.0); MONOCYTES % (AUTO) 10.9 %; NEUTROPHILS # (AUTO) 4.5 10^3/uL (1.5-6.6); NEUTROPHILS % (AUTO) 57.7 %; PLT - PLATELET COUNT 201 10^3/uL (130-450); RED BLOOD COUNT 4.11 10^6/uL (4.20-5.40); RED CELL DISTRIBUTION WIDTH 15.2 % (12.0-15.0); WHITE BLOOD COUNT 7.8 x10^3/uL (4.8-10.8)
== END 2018-11-03 07:42 | disposition home or self-care (01) ==
LOC: LAB.F 07:41
PROVIDERS: ATTEND Internal Medicine
DX: I48.91 Unspecified atrial fibrillation (principal); E03.9 Hypothyroidism, unspecified; C50.919 Malignant neoplasm of unspecified site of unspecified female breast; E78.5 Hyperlipidemia, unspecified; Z79.899 Other long term (current) drug therapy
CPT/HCPCS: 36415; 80053; 80061; 80162; 83721; 84443; 85025

== ENCOUNTER 2018-11-12 07:49 | Outpatient (CLI) | payer MEDICARE | END 2018-11-12 07:50 | disposition home or self-care (01) | LOC: LAB.F 07:49 | PROVIDERS: ATTEND Internal Medicine | DX: I48.91 Unspecified atrial fibrillation (principal); Z79.01 Long term (current) use of anticoagulants | CPT/HCPCS: 85610 ==

== ENCOUNTER 2018-12-24 12:40 | Outpatient (CLI) | payer MEDICARE | END 2018-12-24 12:41 | disposition home or self-care (01) | LOC: LAB.F 12:40 | PROVIDERS: ATTEND Registered Nurse | DX: I48.91 Unspecified atrial fibrillation (principal); Z79.01 Long term (current) use of anticoagulants | CPT/HCPCS: 85610 ==

== ENCOUNTER 2019-01-01 07:18 | Outpatient (CLI) | payer MEDICARE ==
[2019-01-01 10:45] LABS: DIGOXIN 0.8 ng/mL
== END 2019-01-01 07:19 | disposition home or self-care (01) ==
LOC: LAB.F 07:18
PROVIDERS: ATTEND Registered Nurse
DX: Z51.81 Encounter for therapeutic drug level monitoring (principal); Z79.01 Long term (current) use of anticoagulants; I48.91 Unspecified atrial fibrillation
CPT/HCPCS: 36415; 80162; 85610

== ENCOUNTER 2019-01-08 10:33 | Outpatient (CLI) | payer MEDICARE | END 2019-01-08 10:34 | disposition home or self-care (01) | LOC: LAB.F 10:33 | PROVIDERS: ATTEND Registered Nurse | DX: Z79.01 Long term (current) use of anticoagulants (principal); I48.91 Unspecified atrial fibrillation | CPT/HCPCS: 85610 ==

== ENCOUNTER 2019-01-22 08:29 | Outpatient (CLI) | payer MEDICARE | END 2019-01-22 08:30 | disposition home or self-care (01) | LOC: LAB.F 08:29 | PROVIDERS: ATTEND Registered Nurse | DX: I48.91 Unspecified atrial fibrillation (principal); Z79.01 Long term (current) use of anticoagulants | CPT/HCPCS: 85610 ==

== ENCOUNTER 2019-02-19 07:12 | Outpatient (CLI) | payer MEDICARE | END 2019-02-19 07:13 | disposition home or self-care (01) | LOC: LAB.F 07:12 | PROVIDERS: ATTEND Registered Nurse | DX: I48.91 Unspecified atrial fibrillation (principal); Z79.01 Long term (current) use of anticoagulants | CPT/HCPCS: 85610 ==

== ENCOUNTER 2019-02-26 08:25 | Outpatient (CLI) | payer MEDICARE | END 2019-02-26 08:26 | disposition home or self-care (01) | LOC: LAB.F 08:25 | PROVIDERS: ATTEND Registered Nurse | DX: Z79.01 Long term (current) use of anticoagulants (principal); I48.91 Unspecified atrial fibrillation | CPT/HCPCS: 85610 ==

== ENCOUNTER 2019-03-19 14:32 | Outpatient (CLI) | payer MEDICARE ==
--- NOTE | 2019-03-19 16:39 | Mammography Report ---
Reason: ANNUAL SCREENING Procedure Date: 03/19/2019 Accession Number: [id number] / [id number] Procedure: FABIEN - Screening Mammo Dig Bilat CPT Code: FULL RESULT: EXAM: Screening Mammo Dig Bilat DATE: 03/19/2019 3:27 PM CLINICAL HISTORY: Screening. Personal history of left breast cancer. TECHNIQUE: (B) - Bilateral CC and MLO views were obtained. COMPARISON: 12/16/2017, 12/13/2016 PARENCHYMAL PATTERN: (A) - The breasts demonstrate scattered fibroglandular densities bilaterally. FINDINGS: Postoperative architectural distortion superior posterior left breast with stable large dystrophic calcification. There are no suspicious masses, calcifications, or areas of distortion. IMPRESSION: Benign findings. BI-RADS category 2. RECOMMENDATION: (ANNUAL) - Recommend routine annual screening mammography. BI-RADS CATEGORY: (2) - Benign Findings. STANDARD QUALIFYING STATEMENTS: 1. This examination was not reviewed with the aid of Computer-Aided Detection (CAD). 2. A negative or benign imaging report should not preclude biopsy if clinically suspicious findings are present. 3. Dense breasts may obscure an underlying neoplasm. 4. This examination was reviewed without the aid of 3D breast imaging (tomosynthesis).
== END 2019-03-19 14:33 | disposition home or self-care (01) ==
LOC: DI 14:32
DX: Z12.31 Encounter for screening mammogram for malignant neoplasm of breast (principal); Z85.3 Personal history of malignant neoplasm of breast
CPT/HCPCS: 77067

== ENCOUNTER 2019-03-26 07:03 | Outpatient (CLI) | payer MEDICARE | END 2019-03-26 07:04 | disposition home or self-care (01) | LOC: LAB.F 07:03 | PROVIDERS: ATTEND Registered Nurse | DX: Z79.01 Long term (current) use of anticoagulants (principal); I48.91 Unspecified atrial fibrillation | CPT/HCPCS: 85610 ==

== ENCOUNTER 2019-03-29 08:17 | Outpatient (CLI) | payer MEDICARE | END 2019-03-29 08:18 | disposition home or self-care (01) | LOC: LAB.F 08:17 | PROVIDERS: ATTEND Registered Nurse | DX: I48.91 Unspecified atrial fibrillation (principal); Z79.01 Long term (current) use of anticoagulants | CPT/HCPCS: 85610 ==

== ENCOUNTER 2019-04-02 07:29 | Outpatient (CLI) | payer MEDICARE | END 2019-04-02 07:30 | disposition home or self-care (01) | LOC: LAB.F 07:29 | PROVIDERS: ATTEND Registered Nurse | DX: I48.91 Unspecified atrial fibrillation (principal); Z79.01 Long term (current) use of anticoagulants | CPT/HCPCS: 85610 ==

== ENCOUNTER 2019-04-23 07:13 | Outpatient (CLI) | payer MEDICARE | END 2019-04-23 07:14 | disposition home or self-care (01) | LOC: LAB.S 07:13 | PROVIDERS: ATTEND Registered Nurse | DX: Z79.01 Long term (current) use of anticoagulants (principal); I48.91 Unspecified atrial fibrillation | CPT/HCPCS: 85610 ==

== ENCOUNTER 2019-05-21 07:16 | Outpatient (CLI) | payer MEDICARE | END 2019-05-21 07:17 | disposition home or self-care (01) | LOC: LAB.S 07:16 | PROVIDERS: ATTEND Registered Nurse | DX: I48.91 Unspecified atrial fibrillation (principal); Z79.01 Long term (current) use of anticoagulants | CPT/HCPCS: 85610 ==

== ENCOUNTER 2019-06-17 09:04 | Outpatient (CLI) | payer MEDICARE | END 2019-06-17 09:05 | disposition home or self-care (01) | LOC: LAB.S 09:04 | PROVIDERS: ATTEND Registered Nurse | DX: Z79.01 Long term (current) use of anticoagulants (principal); I48.91 Unspecified atrial fibrillation | CPT/HCPCS: 85610 ==

== ENCOUNTER 2019-07-15 11:19 | Outpatient (CLI) | payer MEDICARE | END 2019-07-15 11:20 | disposition home or self-care (01) | LOC: LAB.S 11:19 | PROVIDERS: ATTEND Registered Nurse | DX: I48.91 Unspecified atrial fibrillation (principal); Z79.01 Long term (current) use of anticoagulants | CPT/HCPCS: 85610 ==

== ENCOUNTER 2019-07-21 07:34 | Outpatient (CLI) | payer MEDICARE | END 2019-07-21 07:35 | disposition home or self-care (01) | LOC: LAB.S 07:34 | PROVIDERS: ATTEND Dentist | DX: R79.1 Abnormal coagulation profile (principal) | CPT/HCPCS: 85610 ==